=== PATIENT | female | born 1960 | race Caucasian/White ===

== ENCOUNTER 2018-01-23 14:44 | Outpatient (REF) | payer MEDICARE, MEDICAID, SELFPAY ==
[2018-01-23 23:07] LABS: Anion Gap 7.7 mmol/L (3-11); BUN 15 mg/dL (7-18); CO2 29.3 mmol/L (21.0-32.0); CREATININE 1.22 mg/dL (0.55-1.02); Calcium 9.5 mg/dL (8.5-10.1); Chloride 103 mmol/L (98-107); Estimated GFR 45.43 (mL/min/1.73m2); Glucose 96 mg/dL (70-100); Potassium 5.1 mmol/L (3.5-5.1); Sodium 140 mmol/L (136-145)
== END 2018-01-23 15:04 ==
LOC: NCHCN 14:44
PROVIDERS: PCP Nurse Practitioner Family; Visit Provider Physician Assistant Medical
DX: R94.4 Abnormal results of kidney function studies (principal)
CPT/HCPCS: 80048

== ENCOUNTER 2018-04-17 15:12 | Outpatient (REF) | payer MEDICARE, MEDICAID, SELFPAY ==
[2018-04-17 22:11] LABS: Abs Immature Grans 0.01 k/cumm (0.0-0.09); Absolute Basophil Count 0.06 k/cumm (0.0-0.2); Absolute Lymphocyte Count 4.09 k/cumm (1.2-3.4); Absolute Monocyte Count 0.93 k/cumm (0.11-0.7); Absolute Neutrophil Count 5.01 k/cumm (1.2-6.7); Basophils % 0.6; HCT 42.2 % (36.0-46.0); HGB 14.1 g/dL (12.0-15.5); Immature Grans % 0.1; Lymphocytes % 40.1; Mean Corp. HGB Concentration 33.4 g/dL (32.0-36.0); Mean Corpuscular Hemoglobin 32.6 pg (27.0-33.0); Mean Corpuscular Volume 97.5 fL (80-95); Mean Platelet Volume 10.3 fL (8.0-11.0); Monocytes % 9.1; Neutrophils % 49.1; Platelet Count 307 x1000/uL (130-400); RBC 4.33 m/cumm (4.00-5.20)
[2018-04-17 22:38] LABS: Magnesium 2.4 mg/dL (1.8-2.4); TSH 1.31 uIU/mL (0.358-3.74)
== END 2018-04-17 15:32 ==
LOC: NCHCN 15:12
PROVIDERS: PCP Nurse Practitioner Family; Visit Provider Nurse Practitioner Family
DX: F32.9 Major depressive disorder, single episode, unspecified (principal); G89.29 Other chronic pain; F11.20 Opioid dependence, uncomplicated
CPT/HCPCS: 83735; 84443; 85025

== ENCOUNTER 2018-04-24 00:35 | Outpatient (CLI) | payer MEDICARE, MEDICAID, SELFPAY ==
--- NOTE | 2018-04-24 13:35 | DI.CTLCSR_ITS ---
SYMPTOMS/DIAGNOSIS: CIGARETTE SMOKER, F17.210, [facility], Z00.[address] FOR LUNG CANCER SCREENING: A low dose screening protocol was performed. There are no prior comparison exams. There is mild underlying paraseptal and central lobular emphysema. There is a spiculated mass in the right upper lobe anteroinferiorly, measuring 1.4 x 0.9 x 0.9 cm. There is a smaller nodule slightly more superiorly in the right upper lobe, measuring 5 mm in greatest dimension. Other 3 mm nodules are seen scattered in the periphery of the lower lobes. A 5 mm nodule is seen at the superior segment of the left lower lobe. No infiltrates, pleural or pericardial effusions are seen. There is no evidence of adenopathy. There is prominence of the left adrenal gland with Hounsfield units consistent with an adenoma. There is also a smaller low density lesion seen on the right ovary, also consistent with an adenoma. Scoliosis and degenerative changes are seen in the spine. IMPRESSION: A 1.4 cm spiculated mass in the right middle lobe with adjacent smaller nodule. Biopsy is recommended for further evaluation. Lung-RAD Category: 4B- Suspicious Lung- RAD Management of Findings: Chest CT, PET/CT, and/or tissue sampling
== END 2018-04-24 00:55 ==
PROVIDERS: PCP Nurse Practitioner Family; Visit Provider Nurse Practitioner Family
DX: Z12.2 Encounter for screening for malignant neoplasm of respiratory organs (principal); F17.210 Nicotine dependence, cigarettes, uncomplicated; J43.9 Emphysema, unspecified; R91.8 Other nonspecific abnormal finding of lung field
CPT/HCPCS: G0297

== ENCOUNTER 2018-05-02 10:41 | Outpatient (CLI) | payer MEDICARE, MEDICAID, SELFPAY ==
--- NOTE | 2018-05-02 12:45 | DI.MAMMO_ITS ---
SYMPTOM/DIAGNOSIS: SCREENING, Z12.39 MAMMOGRAMS: Mammograms were interpreted according to the usual protocol including computer analysis with CAD system, tomosynthesis and C view imaging. Comparison is made with exams from [id number]. The breasts are composed of extremely dense fibroglandular tissue. Breast density, Category D. No suspicious masses or suspicious microcalcifications are visible. There has been no significant change. IMPRESSION: Category 1D, negative mammogram. Yearly screening mammography is recommended. [facility] [[email or web address]] ASSESSMENT OF FINDINGS: Negative. Category 1. Patient will receive a letter notifying them of these results. BI-RADS category D. The breasts are extremely dense, which lowers the sensitivity of mammography.
== END 2018-05-02 11:01 ==
PROVIDERS: PCP Nurse Practitioner Family; Visit Provider Nurse Practitioner Family
DX: Z12.31 Encounter for screening mammogram for malignant neoplasm of breast (principal)
CPT/HCPCS: 77063; 77067

== ENCOUNTER 2018-08-18 12:55 | Outpatient (CLI) | payer MEDICARE, MEDICAID, SELFPAY ==
[2018-08-18 13:22] LABS: Abs Immature Grans 0.04 k/cumm (0.0-0.09); Absolute Basophil Count 0.07 k/cumm (0.0-0.2); Absolute Eosinophil Count 1.26 k/cumm (0.0-0.7); Absolute Monocyte Count 1.33 k/cumm (0.11-0.7); Absolute Neutrophil Count 6.31 k/cumm (1.2-6.7); Basophils % 0.5; Eosinophils % 9.3; HCT 38.3 % (36.0-46.0); HGB 12.6 g/dL (12.0-15.5); Immature Grans % 0.3; Lymphocytes % 33.5; Mean Corp. HGB Concentration 32.9 g/dL (32.0-36.0); Mean Corpuscular Hemoglobin 31.7 pg (27.0-33.0); Mean Corpuscular Volume 96.2 fL (80-95); Mean Platelet Volume 8.9 fL (8.0-11.0); Monocytes % 9.8; Neutrophils % 46.6; Platelet Count 385 x1000/uL (130-400); RBC 3.98 m/cumm (4.00-5.20); RBC Distribution Width 13.7 % (11.7-14.6); White Blood Cell Count 13.54 k/cumm (4.4-10.8)
[2018-08-18 13:39] LABS: ALT 34 U/L (12-78); AST 24 U/L (15-37); Albumin 3.5 g/dL (3.4-5.0); Alkaline Phosphatase 99 U/L (46-116); Anion Gap 4.9 mmol/L (3-11); BUN 24 mg/dL (7-18); Bilirubin, Total 0.4 mg/dL (0.2-1.0); CO2 31.1 mmol/L (21.0-32.0); CREATININE 1.04 mg/dL (0.55-1.02); Calcium 8.9 mg/dL (8.5-10.1); Chloride 103 mmol/L (98-107); Estimated GFR 54.43 (mL/min/1.73m2); Glucose 99 mg/dL (70-100); Magnesium 2.2 mg/dL (1.8-2.4); Potassium 4.7 mmol/L (3.5-5.1); Sodium 139 mmol/L (136-145); Total Protein 7.1 g/dL (6.4-8.2)
[2018-08-18 14:16] LABS: Absolute Lymphocyte Count 4.54 k/cumm (1.2-3.4)
[2018-08-18 14:17] LABS: Diff Comment RBC Morph Reviewed; Howell-Jolly Bodies Present; Hypochromasia 1+; Poikilocytes 1+
== END 2018-08-18 13:15 ==
PROVIDERS: PCP Nurse Practitioner Family; Visit Provider Nurse Practitioner Family
DX: C34.91 Malignant neoplasm of unspecified part of right bronchus or lung (principal)
CPT/HCPCS: 36415; 80053; 83735; 85025

== ENCOUNTER 2018-08-31 08:27 | Outpatient (CLI) | payer MEDICARE, MEDICAID, SELFPAY ==
[2018-08-31 09:00] LABS: Abs Immature Grans 0.01 k/cumm (0.0-0.09); Absolute Basophil Count 0.04 k/cumm (0.0-0.2); Absolute Eosinophil Count 0.33 k/cumm (0.0-0.7); Absolute Lymphocyte Count 2.91 k/cumm (1.2-3.4); Absolute Neutrophil Count 2.97 k/cumm (1.2-6.7); Basophils % 0.6; Eosinophils % 4.7; HCT 37.1 % (36.0-46.0); HGB 12.4 g/dL (12.0-15.5); Immature Grans % 0.1; Lymphocytes % 41.8; Mean Corp. HGB Concentration 33.4 g/dL (32.0-36.0); Mean Corpuscular Hemoglobin 31.7 pg (27.0-33.0); Mean Corpuscular Volume 94.9 fL (80-95); Mean Platelet Volume 9.4 fL (8.0-11.0); Monocytes % 10.1; Neutrophils % 42.7; Platelet Count 312 x1000/uL (130-400); RBC 3.91 m/cumm (4.00-5.20); RBC Distribution Width 13.1 % (11.7-14.6); White Blood Cell Count 6.96 k/cumm (4.4-10.8)
[2018-08-31 09:03] LABS: ALT 22 U/L (12-78); AST 17 U/L (15-37); Albumin 3.5 g/dL (3.4-5.0); Alkaline Phosphatase 103 U/L (46-116); BUN 18 mg/dL (7-18); Bilirubin, Total 0.3 mg/dL (0.2-1.0); CREATININE 1.04 mg/dL (0.55-1.02); Calcium 8.7 mg/dL (8.5-10.1); Chloride 103 mmol/L (98-107); Estimated GFR 54.43 (mL/min/1.73m2); Glucose 69 mg/dL (70-100); Magnesium 2.1 mg/dL (1.8-2.4); Potassium 4.5 mmol/L (3.5-5.1); Sodium 139 mmol/L (136-145); Total Protein 7.2 g/dL (6.4-8.2)
== END 2018-08-31 08:47 ==
PROVIDERS: PCP Nurse Practitioner Family
DX: C34.91 Malignant neoplasm of unspecified part of right bronchus or lung (principal)
CPT/HCPCS: 36415; 80053; 83735; 85025

== ENCOUNTER 2018-09-11 07:32 | Outpatient (CLI) | payer MEDICARE, MEDICAID, SELFPAY ==
[2018-09-11 07:49] LABS: Abs Immature Grans 0.02 k/cumm (0.0-0.09); Absolute Basophil Count 0.03 k/cumm (0.0-0.2); Absolute Eosinophil Count 0.15 k/cumm (0.0-0.7); Absolute Lymphocyte Count 3.02 k/cumm (1.2-3.4); Absolute Monocyte Count 1.32 k/cumm (0.11-0.7); Absolute Neutrophil Count 1.96 k/cumm (1.2-6.7); Basophils % 0.5; Eosinophils % 2.3; HCT 37.5 % (36.0-46.0); HGB 12.3 g/dL (12.0-15.5); Immature Grans % 0.3; Lymphocytes % 46.5; Mean Corp. HGB Concentration 32.8 g/dL (32.0-36.0); Mean Corpuscular Hemoglobin 31.6 pg (27.0-33.0); Mean Corpuscular Volume 96.4 fL (80-95); Mean Platelet Volume 8.7 fL (8.0-11.0); Monocytes % 20.3; Neutrophils % 30.1; Platelet Count 550 x1000/uL (130-400); RBC 3.89 m/cumm (4.00-5.20)
[2018-09-11 08:08] LABS: ALT 20 U/L (12-78); AST 17 U/L (15-37); Albumin 3.7 g/dL (3.4-5.0); Alkaline Phosphatase 85 U/L (46-116); Anion Gap 5.8 mmol/L (3-11); BUN 22 mg/dL (7-18); Bilirubin, Total 0.3 mg/dL (0.2-1.0); CO2 30.2 mmol/L (21.0-32.0); CREATININE 1.27 mg/dL (0.55-1.02); Calcium 8.8 mg/dL (8.5-10.1); Chloride 102 mmol/L (98-107); Estimated GFR 43.22 (mL/min/1.73m2); Glucose 97 mg/dL (70-100); Magnesium 2.1 mg/dL (1.8-2.4); Potassium 4.3 mmol/L (3.5-5.1); Sodium 138 mmol/L (136-145); Total Protein 7.2 g/dL (6.4-8.2)
== END 2018-09-11 07:52 ==
PROVIDERS: PCP Nurse Practitioner Family
DX: C34.91 Malignant neoplasm of unspecified part of right bronchus or lung (principal)
CPT/HCPCS: 36415; 80053; 83735; 85025

== ENCOUNTER 2018-10-02 07:31 | Outpatient (CLI) | payer MEDICARE, MEDICAID, SELFPAY ==
[2018-10-02 08:12] LABS: ALT 22 U/L (12-78); AST 17 U/L (15-37); Albumin 3.7 g/dL (3.4-5.0); Alkaline Phosphatase 76 U/L (46-116); Anion Gap 5.3 mmol/L (3-11); BUN 18 mg/dL (7-18); Bilirubin, Total 0.4 mg/dL (0.2-1.0); CO2 30.7 mmol/L (21.0-32.0); CREATININE 1.12 mg/dL (0.55-1.02); Calcium 9.1 mg/dL (8.5-10.1); Chloride 102 mmol/L (98-107); Estimated GFR 49.97 (mL/min/1.73m2); Glucose 84 mg/dL (70-100); Potassium 4.3 mmol/L (3.5-5.1); Sodium 138 mmol/L (136-145); Total Protein 7.1 g/dL (6.4-8.2)
[2018-10-02 08:21] LABS: Abs Immature Grans 0.02 k/cumm (0.0-0.09); Absolute Basophil Count 0.12 k/cumm (0.0-0.2); Absolute Eosinophil Count 0.41 k/cumm (0.0-0.7); Absolute Lymphocyte Count 3.62 k/cumm (1.2-3.4); Absolute Monocyte Count 1.27 k/cumm (0.11-0.7); Absolute Neutrophil Count 2.86 k/cumm (1.2-6.7); Basophils % 1.4; Eosinophils % 4.9; HCT 36.7 % (36.0-46.0); HGB 12.1 g/dL (12.0-15.5); Immature Grans % 0.2; Lymphocytes % 43.6; Mean Corpuscular Hemoglobin 31.9 pg (27.0-33.0); Mean Corpuscular Volume 96.8 fL (80-95); Monocytes % 15.3; Neutrophils % 34.6; Platelet Count 367 x1000/uL (130-400); RBC 3.79 m/cumm (4.00-5.20); RBC Distribution Width 14.7 % (11.7-14.6)
== END 2018-10-02 07:51 ==
PROVIDERS: PCP Nurse Practitioner Family
DX: C34.91 Malignant neoplasm of unspecified part of right bronchus or lung (principal)
CPT/HCPCS: 36415; 80053; 83735; 85025

== ENCOUNTER 2018-10-24 07:14 | Outpatient (CLI) | payer MEDICARE, MEDICAID, SELFPAY ==
[2018-10-24 07:34] LABS: Abs Immature Grans 0.06 k/cumm (0.0-0.09); Absolute Basophil Count 0.05 k/cumm (0.0-0.2); Absolute Eosinophil Count 0.14 k/cumm (0.0-0.7); Absolute Lymphocyte Count 3.75 k/cumm (1.2-3.4); Absolute Monocyte Count 1.18 k/cumm (0.11-0.7); Absolute Neutrophil Count 1.84 k/cumm (1.2-6.7); Basophils % 0.7; HCT 36.6 % (36.0-46.0); HGB 11.9 g/dL (12.0-15.5); Immature Grans % 0.9; Lymphocytes % 53.4; Mean Corp. HGB Concentration 32.5 g/dL (32.0-36.0); Mean Corpuscular Hemoglobin 32.2 pg (27.0-33.0); Mean Corpuscular Volume 99.2 fL (80-95); Mean Platelet Volume 8.9 fL (8.0-11.0); Monocytes % 16.8; Neutrophils % 26.2; RBC 3.69 m/cumm (4.00-5.20); RBC Distribution Width 15.7 % (11.7-14.6); White Blood Cell Count 7.02 k/cumm (4.4-10.8)
[2018-10-24 07:48] LABS: ALT 18 U/L (12-78); AST 14 U/L (15-37); Albumin 3.7 g/dL (3.4-5.0); Alkaline Phosphatase 80 U/L (46-116); BUN 14 mg/dL (7-18); Bilirubin, Total 0.2 mg/dL (0.2-1.0); CREATININE 1.22 mg/dL (0.55-1.02); Calcium 8.9 mg/dL (8.5-10.1); Chloride 102 mmol/L (98-107); Estimated GFR 45.27 (mL/min/1.73m2); Glucose 92 mg/dL (70-100); Magnesium 2.2 mg/dL (1.8-2.4); Potassium 3.8 mmol/L (3.5-5.1); Sodium 140 mmol/L (136-145); Total Protein 7.3 g/dL (6.4-8.2)
[2018-10-24 08:29] LABS: Platelet Count 818 x1000/uL (130-400)
== END 2018-10-24 07:34 ==
PROVIDERS: PCP Nurse Practitioner Family; Visit Provider Nurse Practitioner Family
DX: C34.91 Malignant neoplasm of unspecified part of right bronchus or lung (principal)
CPT/HCPCS: 36415; 80053; 83735; 85025

== ENCOUNTER 2018-12-26 15:21 | Outpatient (REF) | payer MEDICARE, MEDICAID, SELFPAY ==
[2018-12-26 19:52] LABS: BUN 18 mg/dL (7-18); CREATININE 1.15 mg/dL (0.55-1.02); Calcium 9.3 mg/dL (8.5-10.1); Chloride 102 mmol/L (98-107); Estimated GFR 48.46 (mL/min/1.73m2); Glucose 79 mg/dL (70-100); Potassium 5.3 mmol/L (3.5-5.1); Sodium 139 mmol/L (136-145)
== END 2018-12-26 15:41 ==
LOC: NCHCN 15:21
PROVIDERS: PCP Nurse Practitioner Family; Visit Provider Nurse Practitioner Family
DX: F45.8 Other somatoform disorders (principal); G89.29 Other chronic pain
CPT/HCPCS: 80048

== ENCOUNTER 2018-12-29 00:41 | Outpatient (CLI) | payer MEDICARE, MEDICAID, SELFPAY ==
--- NOTE | 2018-12-29 13:49 | DI.CT_ITS ---
SYMPTOMS/DIAGNOSIS: GLOBUS SENSATION, F45.8 CT, SOFT TISSUE NECK: CT examination of the cervicothoracic junction was performed using intravenous infusion of 100 cc of Omnipaque 350. The trachea and esophagus are normal in appearance. The vascular structures of the neck and superior mediastinum appear intact. The thyroid appears normal. There is no evidence of a supraclavicular or substernal mass. The lung apices appear normal. The clavicles and visualized portions of the shoulder girdle appear normal bilaterally. CONCLUSION: Normal CT examination of the cervical region.
[2018-12-29] MEDS: Omnipaque 350 MG/ML 100 ML BTL IJ (14:26)
== END 2018-12-29 01:01 ==
PROVIDERS: PCP Nurse Practitioner Family; Visit Provider Nurse Practitioner Family
DX: F45.8 Other somatoform disorders (principal)
CPT/HCPCS: 70491; J3490

== ENCOUNTER 2019-01-25 09:10 | Outpatient (REF) | payer MEDICARE, MEDICAID, SELFPAY ==
[2019-01-25 22:23] LABS: Calculated LDL 108 mg/dL; Cholesterol 171 mg/dL (50-200); HDL Cholesterol 53 mg/dL (40-60); Triglyceride 52 mg/dL (30-150)
== END 2019-01-25 09:30 ==
LOC: NCHCN 09:10
PROVIDERS: PCP Nurse Practitioner Family; Visit Provider Nurse Practitioner Family
DX: F45.8 Other somatoform disorders (principal); G89.29 Other chronic pain; M79.7 Fibromyalgia; R79.89 Other specified abnormal findings of blood chemistry
CPT/HCPCS: 80061

== ENCOUNTER 2019-02-21 11:10 | Outpatient (REF) | payer MEDICARE, MEDICAID, SELFPAY ==
[2019-02-21 20:31] LABS: Abs Immature Grans 0.01 k/cumm (0.0-0.09); Absolute Basophil Count 0.07 k/cumm (0.0-0.2); Absolute Eosinophil Count 0.04 k/cumm (0.0-0.7); Absolute Lymphocyte Count 2.38 k/cumm (1.2-3.4); Absolute Monocyte Count 1.03 k/cumm (0.11-0.7); Basophils % 0.7; Eosinophils % 0.4; HCT 39.5 % (36.0-46.0); HGB 13.1 g/dL (12.0-15.5); Immature Grans % 0.1; Lymphocytes % 23.5; Mean Corp. HGB Concentration 33.2 g/dL (32.0-36.0); Mean Corpuscular Hemoglobin 31.6 pg (27.0-33.0); Mean Corpuscular Volume 95.4 fL (80-95); Mean Platelet Volume 9.6 fL (8.0-11.0); Monocytes % 10.2; Neutrophils % 65.1; Platelet Count 429 x1000/uL (130-400); RBC 4.14 m/cumm (4.00-5.20); RBC Distribution Width 13.2 % (11.7-14.6); White Blood Cell Count 10.13 k/cumm (4.4-10.8)
== END 2019-02-21 11:30 ==
LOC: NCHCN 11:10
PROVIDERS: PCP Nurse Practitioner Family; Visit Provider Nurse Practitioner Family
DX: M79.7 Fibromyalgia (principal); G89.29 Other chronic pain; Z79.899 Other long term (current) drug therapy
CPT/HCPCS: 85025

== ENCOUNTER 2019-06-07 00:50 | Outpatient (CLI) | payer MEDICARE, MEDICAID, SELFPAY ==
--- NOTE | 2019-06-07 10:56 | DI.MAMMO_ITS ---
EXAM: MG MAMMO SCREENING CLINICAL HISTORY: SCREENING, [facility] Z00.00. TECHNIQUE: Bilateral full field digital CC and MLO mammographic images were obtained with 3D tomosyn thesis and utilizing computer aided detection (CAD). COMPARISON: Available for comparison. FINDINGS: Masses/Architectural Distortion: None seen. Microcalcifications: No suspicious pleomorphic-type are seen. Skin Thickening/Nipple Retraction: None. IMPRESSION: 1. No significant interval change with no specific features of malignancy noted. 2. Unless there is more urgent need, screening mammography is recommended, as per [place] guidelines. ACR BI-RAD Category- 1 Negative Breast Density - Category C - Heterogeneously dense The mammogram demonstrates the patient's breast tissue is dense. Dense breast tissue is very common a nd is not abnormal but dense breast tissue can make it harder to find cancer on a mammogram. Also, de nse breast tissue may increase their breast cancer risk. This information about the result of the [facility] mogram report was provided to the patient to raise their awareness. Use this report when you speak wi th the patient about their risks for breast cancer, which includes their family history. At that time , you may recommend for more screening tests (Ultrasound or MRI) as they might be useful based on the ir risk. A negative radiographic report should not delay biopsy if a dominant or clinically suspicious mass is present. Up to ten percent of cancers are not identified on mammography. A negative report may reinforce clinical impression. Adenosis and dense breasts may obscure an underlying neoplasm. False positive reports average 6 to 10%. Patient will receive a letter notifying them of these results.
== END 2019-06-07 01:10 ==
PROVIDERS: PCP Nurse Practitioner Family; Visit Provider Nurse Practitioner Family
DX: Z12.31 Encounter for screening mammogram for malignant neoplasm of breast (principal)
CPT/HCPCS: 77063; 77067

== ENCOUNTER 2019-09-18 13:02 | Outpatient (REF) | payer MEDICARE, MEDICAID, SELFPAY | END 2019-09-18 13:22 | LOC: NCHCN 13:02 | PROVIDERS: PCP Nurse Practitioner Family; Visit Provider Nurse Practitioner Family | DX: N76.4 Abscess of vulva (principal) | CPT/HCPCS: 87070; 87205 ==

== ENCOUNTER 2019-12-26 08:54 | Outpatient (REF) | payer MEDICARE, MEDICAID, SELFPAY ==
[2019-12-26 21:45] LABS: HGB 15.6 g/dL (11.2-15.7); MCH 32.6 pg (27.0-33.0); MCHC 33.2 % (32.0-36.0); MCV 98.1 fL (80-95); MPV 9.8 fL (8.0-11.0); Platelet Count 355 10^3/uL (130-400); RBC 4.79 10^6/uL (3.93-5.22); RDW 13.5 % (11.7-14.6); RDW-SD 49.6 fL; WBC 9.58 10^3/uL (4.4-10.8)
[2019-12-26 22:03] LABS: ALT 17 U/L (14-59); AST 16 U/L (15-37); Albumin 4.1 g/dL (3.4-5.0); Alkaline Phosphatase 77 U/L (46-116); Anion Gap 7.7 mmol/L (3-11); BUN 13 mg/dL (7-18); Bilirubin, Total 0.6 mg/dL (0.2-1.0); CO2 29.3 mmol/L (21.0-32.0); CREATININE 1.18 mg/dL (0.55-1.02); Calcium 9.3 mg/dL (8.5-10.1); Calculated LDL 113 mg/dL (<100); Chloride 103 mmol/L (98-107); Cholesterol 183 mg/dL (<200); Estimated GFR 46.88 (mL/min/1.73m2); Glucose 92 mg/dL (74-106); HDL Cholesterol 56 mg/dL (40-60); Potassium 5.2 mmol/L (3.5-5.1); Sodium 140 mmol/L (136-145); TSH 0.88 uIU/mL (0.36-3.74); Total Protein 7.3 g/dL (6.4-8.2); Triglyceride 71 mg/dL (<150)
== END 2019-12-26 09:14 ==
LOC: NCHCN 08:54
PROVIDERS: PCP Nurse Practitioner Family; Visit Provider Nurse Practitioner Family
DX: C80.1 Malignant (primary) neoplasm, unspecified (principal); Z79.899 Other long term (current) drug therapy; R94.4 Abnormal results of kidney function studies; N95.1 Menopausal and female climacteric states
CPT/HCPCS: 80053; 80061; 85027; 84443

== ENCOUNTER 2020-06-09 02:13 | Outpatient (CLI) | payer MEDICARE, MEDICAID, SELFPAY ==
--- NOTE | 2020-06-09 | DI.MAMMO_ITS ---
EXAM: MG MAMMO SCREENING CLINICAL HISTORY: SCREENING, Z12.39. TECHNIQUE: Bilateral full field digital CC and MLO mammographic images were obtained with 3D tomosyn thesis and utilizing computer aided detection (CAD). COMPARISON: Prior mammograms dating back to 2010, the most recent being 05/2019.. FINDINGS: There are no CAD designations. Fibroglandular tissue is moderately dense. There are no spiculated masses nor malignant appearing microcalcification groups. There is a single n ew benign microcalcification in the right breast noted. There is no significant architectural distor tion nor skin thickening-retraction. IMPRESSION: Benign findings. No radiographic evidence of malignancy. BI-RADS Category 2 - Benign Findings Breast Density - Category C - Heterogeneously dense Breast density Category C or D implies that the patient has dense breast tissue. Dense breast tissue can make it harder to find cancer on a mammogram. Dense breast tissue is also associated with an incr eased risk of breast cancer. This information about the result of the mammogram report was provided to the patient to raise their awareness. Use this report when you speak with the patient about their risks for breast cancer, which includes their family history. At that time, you may recommend additional screening tests (Ultrasoun d or MRI) as these tests may add significant information. A negative radiographic report should not delay biopsy if a dominant or clinically suspicious mass is present. Up to ten percent of cancers are not identified on mammography. A negative report may reinforce clinical impression. Adenosis and dense breasts may obscure an underlying neoplasm. False positive reports average 6 to 10%. Patient will receive a letter notifying them of these results.
== END 2020-06-09 02:33 ==
PROVIDERS: PCP Nurse Practitioner Family; Visit Provider Nurse Practitioner Family
DX: Z12.31 Encounter for screening mammogram for malignant neoplasm of breast (principal); R92.0 Mammographic microcalcification found on diagnostic imaging of breast
CPT/HCPCS: 77063; 77067

== ENCOUNTER 2020-07-03 15:59 | Outpatient (REF) | payer MEDICARE, MEDICAID, SELFPAY ==
[2020-07-03 15:43] LABS: HCT 43.3 % (36.0-46.0); HGB 14.5 g/dL (11.2-15.7); MCH 32.3 pg (27.0-33.0); MCHC 33.5 % (32.0-36.0); MCV 96.4 fL (80-95); MPV 10.1 fL (8.0-11.0); Platelet Count 363 10^3/uL (130-400); RBC 4.49 10^6/uL (3.93-5.22); RDW 13.9 % (11.7-14.6); RDW-SD 49.8 fL; WBC 9.74 10^3/uL (4.4-10.8)
[2020-07-03 16:13] LABS: Anion Gap 5.6 mmol/L (3-11); BUN 12 mg/dL (7-18); CO2 30.4 mmol/L (21.0-32.0); CREATININE 1.1 mg/dL (0.55-1.02); Calcium 9.4 mg/dL (8.5-10.1); Chloride 102 mmol/L (98-107); Estimated GFR 50.67 (mL/min/1.73m2); Glucose 95 mg/dL (74-106); Magnesium 2.5 mg/dL (1.8-2.4); Potassium 4.7 mmol/L (3.5-5.1); Sodium 138 mmol/L (136-145)
== END 2020-07-03 16:00 | disposition home or self-care (01) ==
LOC: NCHCN 15:59
PROVIDERS: PCP Nurse Practitioner Family; Visit Provider Nurse Practitioner Family
DX: R94.4 Abnormal results of kidney function studies (principal); Z79.899 Other long term (current) drug therapy
CPT/HCPCS: 80048; 85027; 83735

== ENCOUNTER 2020-09-22 03:27 | Outpatient (CLI) | payer MEDICARE, MEDICAID, SELFPAY ==
[2020-09-22 09:13] LABS: HCT 41.5 % (36.0-46.0); HGB 13.9 g/dL (11.2-15.7); MCH 32.1 pg (27.0-33.0); MCHC 33.5 % (32.0-36.0); MCV 95.8 fL (80-95); MPV 8.9 fL (8.0-11.0); Nucleated RBC 0 %; Platelet Count 405 10^3/uL (130-400); RBC 4.33 10^6/uL (3.93-5.22); RDW 14.8 % (11.7-14.6); RDW-SD 52.1 fL
[2020-09-22 09:54] LABS: ALT 23 U/L (14-59); AST 20 U/L (15-37); Albumin 3.8 g/dL (3.4-5.0); Alkaline Phosphatase 105 U/L (46-116); Anion Gap 5.4 mmol/L (3-11); BUN 25 mg/dL (7-18); Bilirubin, Total 0.4 mg/dL (0.2-1.0); CO2 32.6 mmol/L (21.0-32.0); CREATININE 1.3 mg/dL (0.55-1.02); Calcium 9.2 mg/dL (8.5-10.1); Chloride 103 mmol/L (98-107); Estimated GFR 41.78 (mL/min/1.73m2); Glucose 91 mg/dL (74-106); LDH 259 U/L (81-234); Potassium 5.2 mmol/L (3.5-5.1); Sodium 141 mmol/L (136-145); Total Protein 7.7 g/dL (6.4-8.2)
[2020-09-22 10:01] LABS: Absolute Lymphocyte Count 2.23 10^3/uL (1.2-3.4); Atypical Lymphocytes % 5; Bands % 1
[2020-09-22 10:02] LABS: Absolute Eosinophil Count 0.53 10^3/uL (0.0-0.7); Absolute Monocyte Count 0.85 10^3/uL (0.1-0.8); Diff Comment Diff Reviewed; RBC Morphology Normal
== END 2020-09-22 03:28 | disposition home or self-care (01) ==
PROVIDERS: PCP Nurse Practitioner Family; Visit Provider Internal Medicine Hospice and Palliative Medicine
DX: C34.91 Malignant neoplasm of unspecified part of right bronchus or lung (principal); R79.89 Other specified abnormal findings of blood chemistry
CPT/HCPCS: 36415; 80053; 83615; 85025

== ENCOUNTER 2020-09-29 03:21 | Outpatient (CLI) | payer MEDICARE, MEDICAID, SELFPAY ==
[2020-09-29 09:24] LABS: Anion Gap 5.2 mmol/L (3-11); BUN 27 mg/dL (7-18); CO2 31.8 mmol/L (21.0-32.0); CREATININE 1.4 mg/dL (0.55-1.02); Calcium 9.4 mg/dL (8.5-10.1); Chloride 105 mmol/L (98-107); Estimated GFR 38.36 (mL/min/1.73m2); Glucose 91 mg/dL (74-106); Potassium 4.9 mmol/L (3.5-5.1); Sodium 142 mmol/L (136-145)
== END 2020-09-29 03:22 | disposition home or self-care (01) ==
LOC: LBO 03:21
PROVIDERS: PCP Nurse Practitioner Family; Visit Provider Internal Medicine Hospice and Palliative Medicine
DX: C34.91 Malignant neoplasm of unspecified part of right bronchus or lung (principal)
CPT/HCPCS: 36415; 80048

== ENCOUNTER 2020-10-03 02:52 | Outpatient (CLI) | payer MEDICARE, MEDICAID, SELFPAY ==
[2020-10-03 10:41] LABS: Anion Gap 4.9 mmol/L (3-11); BUN 21 mg/dL (7-18); CO2 33.1 mmol/L (21.0-32.0); CREATININE 1.2 mg/dL (0.55-1.02); Calcium 9.2 mg/dL (8.5-10.1); Chloride 103 mmol/L (98-107); Estimated GFR 45.83 (mL/min/1.73m2); Glucose 91 mg/dL (74-106); Sodium 141 mmol/L (136-145)
== END 2020-10-03 02:53 | disposition home or self-care (01) ==
PROVIDERS: PCP Nurse Practitioner Family; Visit Provider Nurse Practitioner
DX: R79.89 Other specified abnormal findings of blood chemistry (principal)
CPT/HCPCS: 36415; 80048

== ENCOUNTER 2020-10-09 02:39 | Outpatient (CLI) | payer MEDICARE, MEDICAID, SELFPAY ==
[2020-10-09 11:07] LABS: Anion Gap 4.7 mmol/L (3-11); BUN 18 mg/dL (7-18); CO2 32.3 mmol/L (21.0-32.0); CREATININE 1.2 mg/dL (0.55-1.02); Calcium 9.2 mg/dL (8.5-10.1); Chloride 103 mmol/L (98-107); Estimated GFR 45.83 (mL/min/1.73m2); Glucose 97 mg/dL (74-106); Potassium 5.2 mmol/L (3.5-5.1); Sodium 140 mmol/L (136-145)
== END 2020-10-09 02:40 | disposition home or self-care (01) ==
LOC: LBO 02:39
PROVIDERS: PCP Nurse Practitioner Family; Visit Provider Nurse Practitioner
DX: R79.89 Other specified abnormal findings of blood chemistry (principal)
CPT/HCPCS: 36415; 80048

== ENCOUNTER 2020-11-13 04:08 | Outpatient (CLI) | payer MEDICARE, MEDICAID, SELFPAY ==
[2020-11-13 12:04] LABS: ALT 28 U/L (14-59); AST 27 U/L (15-37); Albumin 3.6 g/dL (3.4-5.0); Alkaline Phosphatase 98 U/L (46-116); Anion Gap 5.3 mmol/L (3-11); BUN 22 mg/dL (7-18); Bilirubin, Total 0.4 mg/dL (0.2-1.0); CO2 30.7 mmol/L (21.0-32.0); CREATININE 1.4 mg/dL (0.55-1.02); Calcium 8.9 mg/dL (8.5-10.1); Chloride 102 mmol/L (98-107); Estimated GFR 38.36 (mL/min/1.73m2); Glucose 101 mg/dL (74-106); Sodium 138 mmol/L (136-145); Total Protein 7.7 g/dL (6.4-8.2)
== END 2020-11-13 04:09 | disposition home or self-care (01) ==
LOC: LBO 04:09
PROVIDERS: PCP Nurse Practitioner Family; Visit Provider Internal Medicine Hospice and Palliative Medicine
DX: C34.91 Malignant neoplasm of unspecified part of right bronchus or lung (principal); Z79.899 Other long term (current) drug therapy
CPT/HCPCS: 36415; 80053

== ENCOUNTER 2020-11-20 03:00 | Outpatient (CLI) | payer MEDICARE, MEDICAID, SELFPAY ==
[2020-11-20 11:11] LABS: Anion Gap 6.5 mmol/L (3-11); BUN 24 mg/dL (7-18); CO2 32.5 mmol/L (21.0-32.0); CREATININE 1.2 mg/dL (0.55-1.02); Chloride 100 mmol/L (98-107); Estimated GFR 45.83 (mL/min/1.73m2); Glucose 110 mg/dL (74-106); Potassium 5.2 mmol/L (3.5-5.1); Sodium 139 mmol/L (136-145)
== END 2020-11-20 03:01 | disposition home or self-care (01) ==
LOC: LBO 03:00
PROVIDERS: PCP Nurse Practitioner Family; Visit Provider Nurse Practitioner
DX: C34.91 Malignant neoplasm of unspecified part of right bronchus or lung (principal)
CPT/HCPCS: 36415; 80048

== ENCOUNTER 2021-02-13 01:18 | Outpatient (CLI) | payer MEDICARE, MEDICAID, SELFPAY ==
[2021-02-13 11:10] LABS: Abs Immature Grans 0.02 10^3/uL (0.0-0.06); Absolute Basophil Count 0.08 10^3/uL (0.0-0.2); Absolute Eosinophil Count 0.03 10^3/uL (0.0-0.7); Absolute Lymphocyte Count 2.15 10^3/uL (1.2-3.4); Absolute Monocyte Count 0.88 10^3/uL (0.1-0.8); Absolute Neutrophil Count 5.83 10^3/uL (1.2-6.7); Basophils % 0.9; Eosinophils % 0.3; HCT 45.2 % (36.0-46.0); Immature Grans % 0.2; Lymphocytes % 23.9; MCH 32.1 pg (27.0-33.0); MCHC 33.2 % (32.0-36.0); MCV 96.8 fL (80-95); MPV 9.2 fL (8.0-11.0); Monocytes % 9.8; Neutrophils % 64.9; Nucleated RBC 0 %; Platelet Count 300 10^3/uL (130-400); RBC 4.67 10^6/uL (3.93-5.22); RDW 14.5 % (11.7-14.6); RDW-SD 51.5 fL; WBC 8.99 10^3/uL (4.4-10.8)
[2021-02-13 12:10] LABS: ALT 29 U/L (14-59); AST 19 U/L (15-37); Albumin 3.8 g/dL (3.4-5.0); Alkaline Phosphatase 94 U/L (46-116); Anion Gap 4.1 mmol/L (3-11); BUN 24 mg/dL (7-18); Bilirubin, Total 0.4 mg/dL (0.2-1.0); CO2 32.9 mmol/L (21.0-32.0); CREATININE 1.1 mg/dL (0.55-1.02); Calcium 9.3 mg/dL (8.5-10.1); Chloride 104 mmol/L (98-107); Glucose 100 mg/dL (74-106); LDH 174 U/L (81-234); Potassium 4.9 mmol/L (3.5-5.1); Sodium 141 mmol/L (136-145); Total Protein 7.7 g/dL (6.4-8.2)
== END 2021-02-13 01:19 | disposition home or self-care (01) ==
PROVIDERS: PCP Nurse Practitioner Family; Visit Provider Internal Medicine Hospice and Palliative Medicine
DX: C34.91 Malignant neoplasm of unspecified part of right bronchus or lung (principal)
CPT/HCPCS: 36415; 80053; 83615; 85025

== ENCOUNTER 2021-05-07 03:13 | Outpatient (CLI) | payer MEDICARE, MEDICAID, SELFPAY ==
[2021-05-07 08:59] LABS: Abs Immature Grans 0.02 10^3/uL (0.0-0.06); Absolute Basophil Count 0.07 10^3/uL (0.0-0.2); Absolute Eosinophil Count 0.07 10^3/uL (0.0-0.7); Absolute Lymphocyte Count 3.67 10^3/uL (1.2-3.4); Absolute Neutrophil Count 5.18 10^3/uL (1.2-6.7); Basophils % 0.7; Eosinophils % 0.7; HCT 45.7 % (36.0-46.0); HGB 15.2 g/dL (11.2-15.7); Immature Grans % 0.2; Lymphocytes % 36.7; MCH 32.3 pg (27.0-33.0); MCHC 33.3 % (32.0-36.0); MCV 97.2 fL (80-95); MPV 8.9 fL (8.0-11.0); Neutrophils % 51.7; Nucleated RBC 0 %; Platelet Count 299 10^3/uL (130-400); RDW 14.2 % (11.7-14.6); WBC 10.01 10^3/uL (4.4-10.8)
[2021-05-07 10:29] LABS: ALT 24 U/L (14-59); AST 22 U/L (15-37); Albumin 4.1 g/dL (3.4-5.0); Alkaline Phosphatase 98 U/L (46-116); Anion Gap 7.3 mmol/L (3-11); BUN 26 mg/dL (7-18); Bilirubin, Total 0.7 mg/dL (0.2-1.0); CO2 31.7 mmol/L (21.0-32.0); CREATININE 1.1 mg/dL (0.55-1.02); Calcium 9.2 mg/dL (8.5-10.1); Chloride 101 mmol/L (98-107); FREE T4 1.03 ng/dL (0.76-1.46); Glucose 93 mg/dL (74-106); LDH 210 U/L (81-234); Potassium 4.7 mmol/L (3.5-5.1); Sodium 140 mmol/L (136-145); TSH 1.23 uIU/mL (0.36-3.74)
== END 2021-05-07 03:14 | disposition home or self-care (01) ==
LOC: LBO 03:13
PROVIDERS: PCP Nurse Practitioner Family; Visit Provider Internal Medicine Hospice and Palliative Medicine
DX: C34.91 Malignant neoplasm of unspecified part of right bronchus or lung (principal); Z79.899 Other long term (current) drug therapy
CPT/HCPCS: 36415; 80053; 83615; 84439; 84443; 85025

== ENCOUNTER 2021-06-29 01:42 | Outpatient (CLI) | payer MEDICARE, MEDICAID, SELFPAY | END 2021-06-29 01:43 | disposition home or self-care (01) | LOC: LBO 01:43 | PROVIDERS: PCP Nurse Practitioner Family; Visit Provider Internal Medicine Hospice and Palliative Medicine ==

== ENCOUNTER 2021-07-07 03:53 | Outpatient (CLI) | payer MEDICARE, MEDICAID, SELFPAY ==
[2021-07-07 08:58] LABS: Abs Immature Grans 0.06 10^3/uL (0.0-0.06); Absolute Basophil Count 0.09 10^3/uL (0.0-0.2); Absolute Eosinophil Count 0.13 10^3/uL (0.0-0.7); Absolute Lymphocyte Count 2.31 10^3/uL (1.2-3.4); Absolute Monocyte Count 0.96 10^3/uL (0.1-0.8); Basophils % 0.8; Eosinophils % 1.1; HCT 43.9 % (36.0-46.0); HGB 14.7 g/dL (11.2-15.7); Immature Grans % 0.5; Lymphocytes % 20.3; MCH 32.7 pg (27.0-33.0); MCHC 33.5 % (32.0-36.0); MCV 97.6 fL (80-95); MPV 9.2 fL (8.0-11.0); Monocytes % 8.4; Neutrophils % 68.9; Nucleated RBC 0 %; Platelet Count 334 10^3/uL (130-400); RDW 14.2 % (11.7-14.6); RDW-SD 50.8 fL; WBC 11.37 10^3/uL (4.4-10.8)
[2021-07-07 09:04] LABS: Absolute Neutrophil Count 7.83 10^3/uL (1.2-6.7)
[2021-07-07 10:43] LABS: ALT 33 U/L (14-59); AST 25 U/L (15-37); Albumin 3.9 g/dL (3.4-5.0); Alkaline Phosphatase 122 U/L (46-116); Anion Gap 5.7 mmol/L (3-11); BUN 19 mg/dL (7-18); Bilirubin, Total 0.4 mg/dL (0.2-1.0); CO2 33.3 mmol/L (21.0-32.0); Chloride 102 mmol/L (98-107); Estimated GFR 56.37 (mL/min/1.73m2); Glucose 108 mg/dL (74-106); LDH 224 U/L (81-234); Potassium 4.9 mmol/L (3.5-5.1); Sodium 141 mmol/L (136-145); TSH 0.72 uIU/mL (0.36-3.74); Total Protein 7.5 g/dL (6.4-8.2)
== END 2021-07-07 03:54 | disposition home or self-care (01) ==
LOC: LBO 03:53
PROVIDERS: PCP Nurse Practitioner Family; Visit Provider Internal Medicine Hospice and Palliative Medicine
DX: C34.91 Malignant neoplasm of unspecified part of right bronchus or lung (principal); R79.89 Other specified abnormal findings of blood chemistry; Z79.899 Other long term (current) drug therapy
CPT/HCPCS: 36415; 80053; 83615; 84439; 84443; 85025

== ENCOUNTER 2021-08-17 04:10 | Outpatient (CLI) | payer MEDICARE, MEDICAID, SELFPAY ==
[2021-08-17 08:59] LABS: Abs Immature Grans 0.03 10^3/uL (0.0-0.06); Absolute Basophil Count 0.11 10^3/uL (0.0-0.2); Absolute Eosinophil Count 0.45 10^3/uL (0.0-0.7); Absolute Lymphocyte Count 2.32 10^3/uL (1.2-3.4); Eosinophils % 4.1; HCT 42.7 % (36.0-46.0); HGB 14.2 g/dL (11.2-15.7); Immature Grans % 0.3; MCH 33.3 pg (27.0-33.0); MCHC 33.3 % (32.0-36.0); MCV 100.2 fL (80-95); MPV 9.7 fL (8.0-11.0); Monocytes % 10.9; Neutrophils % 62.7; Nucleated RBC 0 %; Platelet Count 311 10^3/uL (130-400); RBC 4.26 10^6/uL (3.93-5.22); RDW 14.1 % (11.7-14.6); RDW-SD 52.4 fL; WBC 11.04 10^3/uL (4.4-10.8)
[2021-08-17 09:00] LABS: Absolute Neutrophil Count 6.92 10^3/uL (1.2-6.7)
[2021-08-17 10:34] LABS: ALT 39 U/L (14-59); AST 25 U/L (15-37); Albumin 4.1 g/dL (3.4-5.0); Alkaline Phosphatase 118 U/L (46-116); Anion Gap 6.7 mmol/L (3-11); BUN 20 mg/dL (7-18); Bilirubin, Total 0.5 mg/dL (0.2-1.0); CO2 30.3 mmol/L (21.0-32.0); Calcium 9.2 mg/dL (8.5-10.1); Chloride 103 mmol/L (98-107); Estimated GFR 56.37 (mL/min/1.73m2); Glucose 91 mg/dL (74-106); LDH 247 U/L (81-234); Potassium 4.7 mmol/L (3.5-5.1); Sodium 140 mmol/L (136-145); Total Protein 7.8 g/dL (6.4-8.2)
== END 2021-08-17 04:11 | disposition home or self-care (01) ==
LOC: LBO 04:10
PROVIDERS: PCP Nurse Practitioner Family; Visit Provider Internal Medicine Hospice and Palliative Medicine
DX: C34.91 Malignant neoplasm of unspecified part of right bronchus or lung (principal); Z79.899 Other long term (current) drug therapy
CPT/HCPCS: 36415; 80053; 83615; 85025

== ENCOUNTER 2021-09-18 12:07 | Outpatient (REF) | payer MEDICARE, MEDICAID, SELFPAY ==
--- NOTE | 2021-09-18 08:30 | SKI_PTH ---
PATIENT: Kira Robert [id number] AGE/SX: 61/F ROOM: RE09/18/[address]: MAKAYLA Belle : 1960 BED: DIS: 09/18/2021 SPEC #: [id number] RECD: 09/18/21 15:05 STATUS: THAI REMyke #: [id number] ARLENE: 09/18/21 08:[address]: Phuc Johnson DEPT: Surgical Specimen RECD BY: Nia Corona ENTERED: 09/18/21 15:06 SP TYPE: SKI OTHR DR: Carolyne Werner Tissues: 1 - SKIN BIOPSY(SHAVE/PUNCH) Procedures: SKIN LEVEL 4 Comments: [id number]
== END 2021-09-18 12:08 | disposition home or self-care (01) ==
LOC: LBN 12:07
PROVIDERS: PCP Nurse Practitioner Family; Visit Provider Physician Assistant
DX: C44.319 Basal cell carcinoma of skin of other parts of face (principal)
CPT/HCPCS: 88305

== ENCOUNTER 2021-09-28 03:15 | Outpatient (CLI) | payer MEDICARE, MEDICAID, SELFPAY | END 2021-09-28 03:16 | disposition home or self-care (01) | LOC: LBO 03:16 | PROVIDERS: PCP Nurse Practitioner Family; Visit Provider Internal Medicine Hospice and Palliative Medicine ==

== ENCOUNTER 2021-10-26 09:46 | Outpatient (REF) | payer MEDICARE, MEDICAID, SELFPAY ==
[2021-10-26 15:14] LABS: Abs Immature Grans 0.06 10^3/uL (0.0-0.06); Absolute Basophil Count 0.07 10^3/uL (0.0-0.2); Absolute Lymphocyte Count 3.09 10^3/uL (1.2-3.4); Absolute Neutrophil Count 7.93 10^3/uL (1.2-6.7); Basophils % 0.6; Eosinophils % 1.6; HCT 43.5 % (36.0-46.0); HGB 15.1 g/dL (11.2-15.7); Immature Grans % 0.5; Lymphocytes % 24.9; MCH 33.8 pg (27.0-33.0); MCHC 34.7 % (32.0-36.0); MCV 97 fL (80-95); MPV 10.6 fL (8.0-11.0); Monocytes % 8.5; Neutrophils % 63.9; Platelet Count 343 10^3/uL (130-400); RBC 4.47 10^6/uL (3.93-5.22); RDW 13.3 % (11.7-14.6); WBC 12.41 10^3/uL (4.4-10.8)
[2021-10-26 15:17] LABS: Absolute Monocyte Count 1.05 10^3/uL (0.1-0.8)
[2021-10-26 15:20] LABS: ESR 20 mm/hr (0-30)
[2021-10-26 16:29] LABS: ALT 36 U/L (14-59); AST 30 U/L (15-37); Albumin 4.2 g/dL (3.4-5.0); Alkaline Phosphatase 116 U/L (46-116); Bilirubin, Direct 0.1 mg/dL (0.0-0.2); Bilirubin, Total 0.3 mg/dL (0.2-1.0); C-Reactive Protein 0.62 mg/dL (0.0-0.3); TSH (W/Ref FT4) 1.05 uIU/mL (0.36-3.74); Total Protein 8.4 g/dL (6.4-8.2)
[2021-10-27 10:37] LABS: Lyme Ab w Rflx to Lyme Confirm Negative (Negative)
[2021-10-29 00:18] LABS: Anaplasma phagocytophilum Negative (Negative); B. miyamotoi PCR Negative (Negative); Babesia divergens/MO-1 Negative (Negative); Babesia duncani Negative (Negative); Babesia microti Negative (Negative); Ehrlichia chaffeensis Negative (Negative); Ehrlichia ewingii/canis Negative (Negative); Ehrlichia muris eauclairensis Negative (Negative)
== END 2021-10-26 09:47 | disposition home or self-care (01) ==
LOC: NCHCN 09:46
PROVIDERS: PCP Nurse Practitioner Family; Visit Provider Nurse Practitioner Family
DX: R61 Generalized hyperhidrosis (principal); N95.1 Menopausal and female climacteric states; G89.29 Other chronic pain; Z79.899 Other long term (current) drug therapy; W57.XXXA Bitten or stung by nonvenomous insect and other nonvenomous arthropods, initial encounter; T14.8XXA Other injury of unspecified body region, initial encounter; M25.50 Pain in unspecified joint
CPT/HCPCS: 80076; 85652; 87798; 84443; 85025; 86140; 86618

== ENCOUNTER 2021-11-25 15:44 | Outpatient (REF) | payer MEDICARE, MEDICAID, SELFPAY ==
[2021-11-25 14:48] LABS: Abs Immature Grans 0.07 10^3/uL (0.0-0.06); Absolute Basophil Count 0.13 10^3/uL (0.0-0.2); Absolute Lymphocyte Count 3.08 10^3/uL (1.2-3.4); Absolute Monocyte Count 1.24 10^3/uL (0.1-0.8); Absolute Neutrophil Count 6.13 10^3/uL (1.2-6.7); Basophils % 1.2; Eosinophils % 3.6; HGB 14.3 g/dL (11.2-15.7); Immature Grans % 0.6; Lymphocytes % 27.9; MCH 34.2 pg (27.0-33.0); MCV 101 fL (80-95); MPV 10.3 fL (8.0-11.0); Monocytes % 11.2; Neutrophils % 55.5; Platelet Count 329 10^3/uL (130-400); RBC 4.18 10^6/uL (3.93-5.22); RDW 14.3 % (11.7-14.6); RDW-SD 53.1 fL; WBC 11.05 10^3/uL (4.4-10.8)
== END 2021-11-25 15:45 | disposition home or self-care (01) ==
LOC: NCHCN 15:44
PROVIDERS: PCP Nurse Practitioner Family; Visit Provider Nurse Practitioner Family
DX: R61 Generalized hyperhidrosis (principal)
CPT/HCPCS: 85025

== ENCOUNTER 2021-12-07 10:19 | Outpatient (REF) | payer MEDICARE, MEDICAID, SELFPAY ==
[2021-12-07 16:55] LABS: Vitamin B12 745 pg/mL (193-986)
[2021-12-07 16:56] LABS: Folate > 20.0 ng/mL (8.6-20.0)
[2021-12-08 11:08] LABS: Lyme Ab w Rflx to Lyme Confirm Negative (Negative)
[2021-12-13 14:56] LABS: Anaplasma phagocytophilum Negative (Negative); B. miyamotoi PCR Negative (Negative); Babesia divergens/MO-1 Negative (Negative); Babesia duncani Negative (Negative); Babesia microti Negative (Negative); Ehrlichia chaffeensis Negative (Negative); Ehrlichia ewingii/canis Negative (Negative); Ehrlichia muris eauclairensis Negative (Negative)
== END 2021-12-07 10:20 | disposition home or self-care (01) ==
LOC: NCHCN 10:19
PROVIDERS: PCP Nurse Practitioner Family; Visit Provider Nurse Practitioner Family
DX: R51.9 Headache, unspecified (principal); N95.1 Menopausal and female climacteric states; R61 Generalized hyperhidrosis
CPT/HCPCS: 87798; 82607; 82746; 86618

== ENCOUNTER 2021-12-10 17:13 | Outpatient (REF) | payer MEDICARE, MEDICAID, SELFPAY ==
[2021-12-10 16:03] LABS: Anion Gap 5.5 mmol/L (3-11); BUN 31 mg/dL (7-18); CO2 29.5 mmol/L (21.0-32.0); CREATININE 1.1 mg/dL (0.55-1.02); Calcium 9.2 mg/dL (8.5-10.1); Chloride 103 mmol/L (98-107); Glucose 76 mg/dL (74-106); NT-proBNP 261 pg/mL (<300); Potassium 4.7 mmol/L (3.5-5.1); Sodium 138 mmol/L (136-145)
[2021-12-11 11:42] LABS: Albumin 3.8 g/dL (3.4-5.0)
== END 2021-12-10 17:14 | disposition home or self-care (01) ==
LOC: NCHCN 17:13
PROVIDERS: PCP Nurse Practitioner Family; Visit Provider Nurse Practitioner Family
DX: M79.89 Other specified soft tissue disorders (principal); Z00.00 Encounter for general adult medical examination without abnormal findings
CPT/HCPCS: 80048; 82040; 83880

== ENCOUNTER 2021-12-29 18:35 | Outpatient (REF) | payer MEDICARE, MEDICAID, SELFPAY ==
[2021-12-29 16:25] LABS: Abs Immature Grans 0.05 10^3/uL (0.0-0.06); Absolute Basophil Count 0.09 10^3/uL (0.0-0.2); Absolute Lymphocyte Count 2.92 10^3/uL (1.2-3.4); Absolute Neutrophil Count 6.49 10^3/uL (1.2-6.7); Basophils % 0.8; HCT 43.3 % (36.0-46.0); HGB 14.4 g/dL (11.2-15.7); Immature Grans % 0.5; Lymphocytes % 26.9; MCH 33.4 pg (27.0-33.0); MCHC 33.3 % (32.0-36.0); MCV 101 fL (80-95); Monocytes % 8.9; Neutrophils % 59.9; Platelet Count 383 10^3/uL (130-400); RBC 4.31 10^6/uL (3.93-5.22); RDW 13.9 % (11.7-14.6); RDW-SD 51.6 fL; WBC 10.84 10^3/uL (4.4-10.8)
[2021-12-29 16:28] LABS: Absolute Eosinophil Count 0.33 10^3/uL (0.0-0.7); Absolute Monocyte Count 0.96 10^3/uL (0.1-0.8); C-Reactive Protein < 0.05 mg/dL (0.0-0.3)
[2021-12-29 16:35] LABS: ESR 35 mm/hr (0-30)
[2021-12-30 13:11] LABS: Lamotrigine 4.2 mcg/mL (2.5 - 15.0)
== END 2021-12-29 18:36 | disposition home or self-care (01) ==
LOC: NCHCN 18:35
PROVIDERS: PCP Nurse Practitioner Family; Visit Provider Nurse Practitioner Family
DX: M79.89 Other specified soft tissue disorders (principal); R11.0 Nausea; Z51.81 Encounter for therapeutic drug level monitoring
CPT/HCPCS: 80175; 85652; 85025; 86140

== ENCOUNTER → 2022-01-20 07:37 | Outpatient (CLI) | payer MEDICARE, MEDICAID, SELFPAY ==
--- NOTE | 2022-01-20 | DI.MRI_ITS ---
Exam(s) MR BRAIN WO/W EXAM: MR BRAIN WO/W CLINICAL HISTORY: STAGE 4 LUNG CA RT, C34.91, DAILY COATS, ASSESS FOR BRAIN METS TECHNIQUE: Multiplanar multisequence MRI of the brain was performed. CONTRAST MATERIAL: IV Contrast: 10 mL of Dotarem contrast administered. COMPARISON: CT HEAD WITH/WITHOUT CONTRAST from 12/20/2011 FINDINGS: VENTRICLES AND EXTRA AXIAL SPACES: Normal in size and morphology for the patient's age. HEMORRHAGE: None. CEREBRAL PARENCHYMA: No focus of restricted diffusion to suggest acute infarct. No space-occupying le lay identified. MIDLINE SHIFT: None. BRAINSTEM/CEREBELLUM: Normal. CALVARIUM: Normal. ENHANCEMENT: No suspicious enhancement identified. VISUALIZED PARANASAL SINUSES/MASTOIDS: Clear. TAKOTNA OF OLIVARES: Normal flow void. PITUITARY GLAND: Unremarkable. OTHER FINDINGS: IMPRESSION: 1. Unremarkable MRI of the brain. 2. No evidence of intracranial metastatic disease. DATA REPOSITORY:
[2022-01-20] MEDS: Normal Saline Flush 10 ML SYR IVP (09:57)
== END ==
PROVIDERS: PCP Nurse Practitioner Family; Visit Provider Nurse Practitioner
DX: C34.91 Malignant neoplasm of unspecified part of right bronchus or lung (principal)
CPT/HCPCS: 70553

== ENCOUNTER → 2022-01-25 01:47 | Outpatient (CLI) | payer MEDICARE, MEDICAID, SELFPAY ==
--- NOTE | 2022-01-25 | DI.CT_ITS ---
Exam(s) CT ABDOMEN PELVIS W EXAM: CT ABDOMEN PELVIS W CLINICAL HISTORY: STAGE 4 LUNG CA RT, C34.91, NEW WORSENING GI SYMPTOMS. TECHNIQUE: Imaging Protocol: Axial computed tomography images with coronal and sagittal reformatted images were created and reviewed CONTRAST MATERIAL: Intravenous: Omnipaque 100cc Oral: Yes. Oral contrast was administered for bowel opacification. COMPARISON: No exams were available for comparison FINDINGS: VISUALIZED LUNG BASES: No pleural effusions. Nonspecific subpleural markings are noted in lateral ba emelia segment of the left lower lobe.. ABDOMEN: There is no ascites. LIVER: There are no focal hepatic lesions evident. Mild dilatation of intrahepatic ducts noted in adal th right and left hepatic lobes. GALLBLADDER/BILIARY: And CBD are distended with the CBD measuring 10 millimeters. No obvious gallsto calin. No calculi in the lower CBD. No pancreatic head mass. PANCREAS: No obvious pancreatic mass. Pancreatic duct diameter is upper normal. SPLEEN: No spleen evident. Splenic and portal veins are patent. ADRENALS: Right adrenal gland unremarkable. Thickening of the left adrenal gland is noted, particula rly more so in the medial limb which exhibits thickness 1.2 cm. KIDNEYS:Tiny cyst in the superior aspect of the right kidney measuring 6 millimeters. Also similar c yst in the superior aspect left kidney. No solid renal masses. No calculi nor hydronephrosis.. ABDOMINAL AORTA: No evidence of abdominal aortic aneurysm. Maximum diameter of the abdominal aorta i s 2.5 cm. Abdominal aorta tapers distally. No aneurysm of the visualized common iliac arteries note d. Celiac and superior mesenteric arteries are patent. Inferior mesenteric artery is also opacified . No significant stenosis at the aortic bifurcation. LYMPH NODES:There is no retroperitoneal nor paraaortic adenopathy. ABDOMINAL WALL: No evidence of significant anterior abdominal wall nor inguinal hernia. GI: There is no evidence of bowel obstruction, free air, nor abscess. Administered oral contrast has reached the rectum by the time of scanning. Abundant fecal material i s noted in the colon but no true obstruction. PELVIS: GI: No evidence of appendicitis.No evidence of sigmoid diverticulitis. LYMPH NODES: There is no intrapelvic nor inguinal adenopathy. REPRODUCTIVE: Uterus is surgically absent. There are no abnormal adnexal masses. No free fluid in t he pelvis. URINARY BLADDER: Mild uniform thickening of the urinary bladder wall. No bladder distension. No rad iopaque calculi OSSEOUS: No significant osseous lesions. Scoliosis convex left. No fractures evident. IMPRESSION: 1. No ascites nor lymphadenopathy in the abdomen pelvis. Spleen is not seen and possibly surgically absent versus not developed. No surgical clips seen left upper quadrant. 2. Dilated biliary tree, both intra and extrahepatic. Gallbladder is also distended. No gallstones in the biliary tree. No obvious pancreatic head mass. Correlation with appropriate blood work recom mended. Cannot exclude lesion at the ampullary level. 3. Small benign cysts noted in both kidneys. 4. RADIATION DOSE DELIVERED: 943.22mGy.cm Total DLP DATA REPOSITORY: All CT scans at this facility are submitted to the National Radiology Data Registry (NRDR) Dose Index Registry (DIR) with the [employer] (ACR). RADIATION OPTIMIZATION: All CT scans at this facility use at least one of these dose optimization te chniques: automated exposure control; mA and/or kV adjustment per patient size (includes targeted exa ms where dose is matched to clinical indication); or iterative reconstruction.
[2022-01-25] MEDS: Barium Sulfate 2% W/V-Berry Smoothie 450 ML BTL PO (12:59)
[2022-01-25] MEDS: Omnipaque 350 MG/ML 100 ML BTL IJ (15:52)
[2022-01-25] MEDS: Normal Saline Flush 10 ML SYR IVP (15:54)
== END ==
PROVIDERS: PCP Nurse Practitioner Family; Visit Provider Nurse Practitioner
DX: C34.91 Malignant neoplasm of unspecified part of right bronchus or lung (principal); N28.1 Cyst of kidney, acquired; K82.8 Other specified diseases of gallbladder; K83.8 Other specified diseases of biliary tract
CPT/HCPCS: 74177; J3490

== ENCOUNTER → 2022-01-28 12:25 | Outpatient (BNVA) | payer MEDICARE, MEDICAID, SELFPAY | PROVIDERS: PCP Nurse Practitioner Family; Referring Provider Nurse Practitioner Family; Visit Provider Nurse Practitioner Adult Health | DX: G44.52 New daily persistent headache (NDPH) (principal) | CPT/HCPCS: 64405; 99204; 99214 ==

== ENCOUNTER 2022-02-10 10:25 | Outpatient (REF) | payer MEDICARE, MEDICAID, SELFPAY ==
[2022-02-10 19:08] LABS: Bacteria Negative HPF (Negative); C & S Indicated? C&S Done As Ordered; Casts Negative LPF (Negative); Crystals Mod Calcium Oxalate HPF (Negative); Epithelial Cells Rare HPF (Negative); Mucus Negative (Negative); Other Cells Negative (Negative); RBC 0-2 HPF (0-2); WBC 0-2 HPF (0-5)
== END 2022-02-10 10:26 | disposition home or self-care (01) ==
LOC: NCHCN 10:25
PROVIDERS: PCP Nurse Practitioner Family; Visit Provider Nurse Practitioner Family
DX: R30.0 Dysuria (principal)
CPT/HCPCS: 81015; 87086

== ENCOUNTER → 2022-02-11 14:31 | Outpatient (BNVA) | payer MEDICARE, MEDICAID, SELFPAY | PROVIDERS: PCP Nurse Practitioner Family; Referring Provider Nurse Practitioner Family; Visit Provider Nurse Practitioner Adult Health | DX: R51.9 Headache, unspecified (principal) | CPT/HCPCS: 64405 ==

== ENCOUNTER 2022-02-15 04:18 | Outpatient (CLI) | payer MEDICARE, MEDICAID, SELFPAY ==
[2022-02-15 07:48] LABS: HCT 43.9 % (36.0-46.0); HGB 14.7 g/dL (11.2-15.7); MCH 33.5 pg (27.0-33.0); MCHC 33.5 % (32.0-36.0); MCV 100 fL (80-95); MPV 9.3 fL (8.0-11.0); Platelet Count 499 10^3/uL (130-400); RBC 4.39 10^6/uL (3.93-5.22); RDW 12.4 % (11.7-14.6); RDW-SD 46.5 fL; WBC 12.73 10^3/uL (4.4-10.8)
[2022-02-15 08:07] LABS: Absolute Basophil Count 0.13 10^3/uL (0.0-0.2); Absolute Eosinophil Count 0.51 10^3/uL (0.0-0.7); Absolute Monocyte Count 1.15 10^3/uL (0.1-0.8); Absolute Neutrophil Count 6.75 10^3/uL (1.2-6.7); Atypical Lymphocytes % 14; Bands % 1
[2022-02-15 08:08] LABS: Diff Comment Manual Differential; RBC Morphology Normal
[2022-02-15 08:42] LABS: ALT 22 U/L (14-59); AST 20 U/L (15-37); Albumin 3.6 g/dL (3.4-5.0); Alkaline Phosphatase 135 U/L (46-116); Anion Gap 6.8 mmol/L (3-11); BUN 23 mg/dL (7-18); Bilirubin, Total 0.3 mg/dL (0.2-1.0); CO2 33.2 mmol/L (21.0-32.0); CREATININE 1.2 mg/dL (0.55-1.02); Calcium 9.8 mg/dL (8.5-10.1); Chloride 100 mmol/L (98-107); Estimated GFR 51.18 (mL/min/1.73m2); Glucose 112 mg/dL (74-106); LDH 199 U/L (81-234); Potassium 4.1 mmol/L (3.5-5.1); Sodium 140 mmol/L (136-145); Total Protein 8.6 g/dL (6.4-8.2)
== END 2022-02-15 04:19 | disposition home or self-care (01) ==
PROVIDERS: PCP Nurse Practitioner Family; Visit Provider Nurse Practitioner
DX: C34.91 Malignant neoplasm of unspecified part of right bronchus or lung (principal); C78.01 Secondary malignant neoplasm of right lung; C78.02 Secondary malignant neoplasm of left lung
CPT/HCPCS: 36415; 80053; 83615; 85025

== ENCOUNTER → 2022-02-25 13:03 | Outpatient (BNVA) | payer MEDICARE, MEDICAID, SELFPAY | PROVIDERS: PCP Nurse Practitioner Family; Referring Provider Nurse Practitioner Family; Visit Provider Nurse Practitioner Adult Health | DX: G89.29 Other chronic pain (principal); R51.9 Headache, unspecified | CPT/HCPCS: 64405 ==

== ENCOUNTER → 2022-03-11 15:14 | Outpatient (BNVA) | payer MEDICARE, MEDICAID, SELFPAY | PROVIDERS: PCP Nurse Practitioner Family; Referring Provider Nurse Practitioner Family; Visit Provider Nurse Practitioner Adult Health | DX: R51.9 Headache, unspecified (principal) | CPT/HCPCS: 64405 ==

== ENCOUNTER → 2022-03-25 10:24 | Outpatient (BNVA) | payer MEDICARE, MEDICAID, SELFPAY | PROVIDERS: PCP Nurse Practitioner Family; Referring Provider Nurse Practitioner Family; Visit Provider Urology | DX: R35.0 Frequency of micturition (principal); Z87.898 Personal history of other specified conditions | CPT/HCPCS: 51798; 81003; 99214 ==

== ENCOUNTER → 2022-03-29 09:09 | Outpatient (BNVA) | payer MEDICARE, MEDICAID, SELFPAY | PROVIDERS: PCP Nurse Practitioner Family; Referring Provider Nurse Practitioner Family; Visit Provider Nurse Practitioner Adult Health | DX: R51.9 Headache, unspecified (principal) | CPT/HCPCS: 64405 ==

== ENCOUNTER → 2022-04-14 08:51 | Outpatient (BNVA) | payer MEDICARE, MEDICAID, SELFPAY | PROVIDERS: PCP Nurse Practitioner Family; Referring Provider Nurse Practitioner Family; Visit Provider Psychiatry & Neurology Neurology | DX: R51.9 Headache, unspecified (principal) | CPT/HCPCS: 64405 ==

== ENCOUNTER 2022-04-19 15:07 | Outpatient (REF) | payer MEDICARE, MEDICAID, SELFPAY ==
[2022-04-19 16:10] LABS: HCT 42.7 % (36.0-46.0); HGB 14.3 g/dL (11.2-15.7); MCH 32.7 pg (27.0-33.0); MCHC 33.5 % (32.0-36.0); MCV 98 fL (80-95); MPV 11.5 fL (8.0-11.0); Platelet Count 309 10^3/uL (130-400); RBC 4.37 10^6/uL (3.93-5.22); RDW 13.8 % (11.7-14.6); WBC 10.29 10^3/uL (4.4-10.8)
[2022-04-20 16:04] LABS: Lamotrigine 6.2 mcg/mL (3.0-15.0)
== END 2022-04-19 15:08 | disposition home or self-care (01) ==
LOC: NCHCN 15:07
PROVIDERS: PCP Nurse Practitioner Family; Visit Provider Nurse Practitioner Family
DX: Z51.81 Encounter for therapeutic drug level monitoring (principal); F32.9 Major depressive disorder, single episode, unspecified
CPT/HCPCS: 80175; 85027

== ENCOUNTER → 2022-04-28 07:58 | Outpatient (BNVA) | payer MEDICARE, MEDICAID, SELFPAY | PROVIDERS: PCP Nurse Practitioner Family; Referring Provider Nurse Practitioner Family; Visit Provider Nurse Practitioner Adult Health | DX: R51.9 Headache, unspecified (principal) | CPT/HCPCS: 64405; 99213 ==

== ENCOUNTER → 2022-04-28 15:00 | Outpatient (BNVA) | payer MEDICARE, MEDICAID, SELFPAY | PROVIDERS: PCP Nurse Practitioner Family; Referring Provider Nurse Practitioner Family; Visit Provider Nurse Practitioner Gerontology | DX: R35.0 Frequency of micturition (principal); R10.2 Pelvic and perineal pain | CPT/HCPCS: 64405; 99213 ==

== ENCOUNTER → 2022-05-12 07:46 | Outpatient (BNVA) | payer MEDICARE, MEDICAID, SELFPAY | PROVIDERS: PCP Nurse Practitioner Family; Referring Provider Nurse Practitioner Family; Visit Provider Nurse Practitioner Adult Health | DX: G44.52 New daily persistent headache (NDPH) (principal) | CPT/HCPCS: 99212; 96372 ==

== ENCOUNTER 2022-05-24 11:21 | Outpatient (CLI) | payer MEDICARE, MEDICAID, SELFPAY ==
--- NOTE | 2022-05-24 09:46 | DI.RAD_ITS ---
Exam(s) XR WRIST LT COMPLETE EXAM: XR WRIST LT COMPLETE CLINICAL HISTORY: LT WRIST PAIN, M25.532, S/P FALL, ? FX. TECHNIQUE: 2D digital imaging was performed. Three views. COMPARISON: No exams were available for comparison FINDINGS: BONES: No acute fracture is present. No bony destructive lesion is seen. JOINTS: The carpal bones are normally aligned. SOFT TISSUE: Normal. IMPRESSION: Unremarkable radiographs of the left wrist. DATA REPOSITORY: RADIATION DOSE DELIVERED:
== END 2022-05-24 11:41 ==
LOC: DI 11:22
PROVIDERS: PCP Nurse Practitioner Family; Visit Provider Nurse Practitioner Family
DX: M25.532 Pain in left wrist (principal)
CPT/HCPCS: 73110

== ENCOUNTER → 2022-06-14 08:17 | Outpatient (BNVA) | payer MEDICARE, MEDICAID, SELFPAY | PROVIDERS: PCP Nurse Practitioner Family; Referring Provider Nurse Practitioner Family; Visit Provider Nurse Practitioner Adult Health | DX: R51.9 Headache, unspecified (principal) | CPT/HCPCS: 99211 ==

== ENCOUNTER → 2022-06-16 08:17 | Outpatient (BNVA) | payer MEDICARE, MEDICAID, SELFPAY | PROVIDERS: PCP Nurse Practitioner Family; Referring Provider Nurse Practitioner Family; Visit Provider Nurse Practitioner Adult Health | DX: M79.7 Fibromyalgia (principal); R51.9 Headache, unspecified | CPT/HCPCS: 64405; 99213; 99214 ==

== ENCOUNTER 2022-08-16 12:19 | Outpatient (REF) | payer MEDICARE, MEDICAID, SELFPAY ==
--- OUTSIDE RECORDS SUMMARY | 2022-08-16 12:24 | XMS_ITS | Continuity of Care Document ---
Author Name Unknown Organization [facility] Address [address] [place] [address] Care Team Providers Care Relations Director Name Role Phone FLORINDA DIANE Primary Care Physician [phone] Encounter [facility] FIN NBR [id number] Date(s): 07/12/22 - 07/12/[address] [address] Encounter Diagnosis Malignant neoplasm of unspecified part of right bronchus or lung(Final) - Headache, unspecified(Final) - Discharge Disposition: Home or Self Care Attending Physician: JANEY MARTELL Admitting Physician: JANEY MARTELL Allergies, Adverse Reactions, Alerts Substance Reaction Severity Status mirtazapine Moderate Active benzodiazepines Unknown Active Neurobion Moderate Active Nicoderm C-Q Moderate Active Chantix Moderate Active clonazePAM Moderate Active Duragesic-25 Moderate Active Assessment and Plan Future Scheduled Tests Radiology* MRI Brain w/ + w/o Contrast 07/12/22 Medications Ativan 0.5 mg oral tablet 0.5 mg = 1 tab, Oral, BID, 0 Refill(s) Start Date: 05/04/22 Status: Ordered Emgality Prefilled Pen 120 mg/mL subcutaneous solution 0 Refill(s) Start Date: 05/04/22 Status: Ordered galcanezumab-gnlm 120 mg/mL subcutaneous solution 120 mg =, Subcutaneous, every month, # 1 mL, 0 Refill(s) Start Date: 05/04/22 Status: Ordered lactulose 10 g oral powder for reconstitution 1 packets, Oral, BID, # 10 g, 0 Refill(s) Start Date: 05/04/22 Status: Ordered lamoTRIgine 150 mg oral tablet 150 mg = 1 tab, Oral, BID, # 60 tab, 0 Refill(s) Start Date: 05/01/22 Status: Ordered magnesium gluconate 250 mg oral tablet 250 mg 1 tab, Oral, Daily, # 30 tab, 0 Refill(s) Start Date: 05/04/22 Status: Ordered Myrbetriq 50 mg oral tablet, extended release 50 mg = 1 tab, Oral, Daily, do not crush or chew, # 30 tab, 0 Refill(s) Start Date: 05/04/22 Status: Ordered naproxen sodium 550 mg oral tablet 550 mg = 1 tab, Oral, BID, PRN as needed for arthritis, # 20 tab, 0 Refill(s) Start Date: 05/01/22 Status: Ordered Narcan 4 mg/0.1 mL nasal spray 1 sprays, Nasal, Once, may repeat every 2 to 3 minutes until patient responds, # 2 EA, 0 Refill(s) Start Date: 05/01/22 Status: Ordered omeprazole 40 mg oral delayed release capsule 40 mg = 1 cap, Oral, Daily, # 30 cap, 0 Refill(s) Start Date: 05/01/22 Status: Ordered ondansetron 4 mg oral tablet 4 mg = 1 tab, Oral, every 8 hr, 0 Refill(s) Start Date: 05/01/22 Status: Ordered Tagrisso 80 mg oral tablet 80 mg = 1 tab, Oral, Daily, # 30 tab, 0 Refill(s) Start Date: 05/04/22 Status: Ordered Problem List Condition Confirmation Course Effective Dates Status H ealth Status Informant AP (abdominal pain) Confirmed Active Vaginal atrophy Confirmed Active Vitamin B 12 deficiency Confirmed Active High risk medication use Confirmed Active Edema Confirmed Active Fibromyalgia Confirmed Active Frequent headaches Confirmed Active Urinary frequency Confirmed Active Insomnia Confirmed Active Chronic joint pain Confirmed Active Anxiety and depression Confirmed Active Nausea Confirmed Active Non-small cell lung cancer Confirmed Active PTSD (post-traumatic stress disorder) Confirmed Active Metastatic adenocarcinoma Confirmed Active Smoker Confirmed Active Hard palate ulcer Confirmed Active Procedures Procedure Date Related Diagnosis Body Site Status Appendectomy Completed Elbow class Completed Oophorectomy Completed Splenectomy Completed Tonsillectomy Completed Vaginal hysterocolpectomy Completed Results Radiology Reports * Exam Date Time Procedure Performing Provider Status 07/12/22 9:43 AM MRI Brain w/ + w/o Contrast DomainUser , Generated; Auth (Verified) Notes: (MRI Brain w/ + w/o Contrast) Reason For Exam: HEADACHE , LUNG CA STAGE 4 MRI Brain w/ + w/o Contrast EXAM DESCRIPTION: MRI Brain w/ + w/o Contrast 07/12/2022 INDICATION: HEADACHE , LUNG CA STAGE 4 TECHNIQUE: Technique: Multiplanar MRI examination of the head including FLAIR and diffusion series. Postcontrast T1-weighted images were obtained in 3 planes. 10 cc of MultiHance contrast was utilized COMPARISON: None available FINDINGS: No intracranial mass, mass effect or abnormal enhancement. Diffusion weighted images demonstrate no focal area of acute or recent infarct. No hydrocephalus, extra-axial fluid collection or blood breakdown products. A few tiny nonspecific foci of periventricular and subcortical white matter T2 signal prolongation are noted bilaterally. Diagnostic possibilities would include mild chronic microangiopathy, sequela of migraine headaches, vasculitic process, or less likely demyelination Cerebellar tonsil position is normal. The pituitary gland demonstrates normal morphology and signal intensity. No significant temporal horn asymmetry Visualized vascular flow voids and cranial nerves appear within normal limits. The visualized paranasal sinuses are grossly clear. Right mastoid fluid. IMPRESSION: No intracranial mass, mass effect or abnormal enhancement. No acute or recent infarct on diffusion series Scattered small nonspecific periventricular and subcortical white matter lesions with diagnostic possibilities as detailed above. JOB #: [id number] Final Signed by: Juan Carlos Scott MD Signed (Electronic Signature): 07/12/2022 10:27 am Social History Social History Type Response Tobacco Current everyday tob acco user Tobacco Use:. Sex MR Brain WO and W contrast IV * Juan Carlos Scott MD: VERIFY, VERIFY Event Display: Report EXAM DESCRIPTION: MRI Brain w/ + w/o Contrast 07/12/2022 INDICATION: HEADACHE , LUNG CA STAGE 4 TECHNIQUE: Technique: Multiplanar MRI examination of the head including FLAIR and diffusion series. Postcontrast T1-weighted images were obtained in 3 planes. 10 cc of MultiHance contrast was utilized COMPARISON: None available FINDINGS: No intracranial mass, mass effect or abnormal enhancement. Diffusion weighted images demonstrate no focal area of acute or recent infarct. No hydrocephalus, extra-axial fluid collection or blood breakdown products. A few tiny nonspecific foci of periventricular and subcortical white matter T2 signal prolongation are noted bilaterally. Diagnostic possibilities would include mild chronic microangiopathy, sequela of migraine headaches, vasculitic process, or less likely demyelination Cerebellar tonsil position is normal. The pituitary gland demonstrates normal morphology and signal intensity. No significant temporal horn asymmetry Visualized vascular flow voids and cranial nerves appear within normal limits. The visualized paranasal sinuses are grossly clear. Right mastoid fluid. IMPRESSION: No intracranial mass, mass effect or abnormal enhancement. No acute or recent infarct on diffusion series Scattered small nonspecific periventricular and subcortical white matter lesions with diagnostic possibilities as detailed above. JOB #: [id number] Final Signed by: Juan Carlos Scott MD Signed (Electronic Signature): 07/12/2022 10:27 am Patient Care team information Care Team Personnel Name: FLORINDA DIANE Position: No Access Member Role: Primary Care Physician Address: Address: [address] [place] [address]- [place]
--- OUTSIDE RECORDS SUMMARY | 2022-08-16 12:24 | XMS_ITS | Continuity of Care Document ---
Author Name Unknown Organization [facility] Address [address] [place] [address] Care Team Providers Care Hand Twister Name Role Phone FLORINDA DIANE Primary Care Physician [phone] Encounter LTTL_CT FIN NBR [id number] Date(s): 05/18/22 - 05/18/[address] [address]- [place] Discharge Disposition: Home or Self Care Attending Physician: AMINAH BRIGGS Admitting Physician: AMINAH BRIGGS Allergies, Adverse Reactions, Alerts Substance Reaction Severity Status mirtazapine Moderate Active benzodiazepines Unknown Active Neurobion Moderate Active Nicoderm C-Q Moderate Active Chantix Moderate Active Duragesic-25 Moderate Active clonazePAM Moderate Active Assessment and Plan Future Appointments Future Scheduled Tests Radiology* MRI Abdomen w/o Contrast 05/24/22 Medications Ativan 0.5 mg oral tablet 0.5 [...] Exam Date Time Procedure Performing Provider Status 05/18/22 9:[address] Abdomen and Pelvis w/ Contrast Marjorie Brothers (Verified) Notes: (CT Abdomen and Pelvis w/ Contrast) Reason For Exam: STAGE [address] Abdomen and Pelvis w/ Contrast EXAM DESCRIPTION: CT Abdomen and Pelvis w/ Contrast 05/18/2022 INDICATION: STAGE 4 LUNG CANCER RIGHT TECHNIQUE: All CT scans at this facility use at least one of these dose optimization techniques: Automated exposure control; mA and/or kV adjustment per patient size (includes targeted exams where dose is matched to clinical indication); or iterative reconstruction. Technique: Axial CT images of the abdomen/pelvis with IV contrast administration 100 cc of Isovue-300 contrast was utilized COMPARISON: None available FINDINGS: No focal hepatic lesion. Normal enhancement of the main hepatic veins and main portal vein. The spleen is not identified which may reflect previous splenectomy. The common bile duct appears mildly dilated measuring 7.5 mm in diameter with mild central intrahepatic biliary dilatation. No definite findings to suggest choledocholithiasis. Distal common bile duct stricture cannot be excluded. The gallbladder appears mildly distended. No calcified gallstones in the gallbladder. Bilateral adrenal nodularity measuring approximately 1.5 x 2.1 cm on the right and 1.8 x 2.2 cm on the left. Metastatic lesions can not be excluded. No pancreatic mass is identified. No definite peripancreatic inflammatory stranding. Scattered tiny low-attenuation renal lesions bilaterally measuring a few mm in size, too small to characterize. Findings may reflect small cysts. No solid renal mass, hydronephrosis or perinephric fluid collection on either side No pelvic mass identified. Normal caliber abdominal aorta with scattered atherosclerotic calcifications. No retroperitoneal adenopathy in the abdomen or pelvis. No bowel dilatation to suggest obstruction or ileus. No free intraperitoneal air, ascites or inflammatory changes. Dense material within portions of the colon which may reflect oral contrast administration. Appendix not identified. Noncalcified pleural-based nodular opacity in the posterolateral aspect of the right lower lobe on image number 15 measuring 4.1 mm in diameter. Small calcified nodules in the left lung base consistent with granuloma formation or scarring. Mild subsegmental atelectasis or scarring in both lung bases as well. No suspicious regional osseous lesions. Spondylotic changes throughout the visualized spinal axis. IMPRESSION: Bilateral adrenal nodularity as detailed above. Metastatic disease can not be excluded. Intrahepatic and extrahepatic biliary dilatation with common bile duct diameter measuring up to 7.5 mm. No definite pancreatic head mass or calcified stone in the distal common bile duct. Distal common bile duct stricture cannot be excluded. MRCP correlation could be obtained. Tiny low-attenuation renal lesions bilaterally, too small to characterize. Findings may reflect cysts. Nonobstructive bowel pattern. No free air or inflammatory changes Small pleural-based noncalcified nodule in the right lower lobe measuring 4.1 mm in diameter, too small to characterize. Metastatic disease can not be excluded. Dedicated CT chest correlation could be obtained. JOB #: [id number] Final Signed by: Juan Carlos Scott MD Signed (Electronic Signature): 05/18/2022 9:22 am Social History Social History Type Response Tobacco Current everyday tob acco user Tobacco Use:. Sex CT Abdomen and Pelvis W contrast IV * Juan Carlos Scott MD: VERIFY, VERIFY Event Display: Report EXAM DESCRIPTION: CT Abdomen and Pelvis w/ Contrast 05/18/2022 INDICATION: STAGE 4 LUNG CANCER RIGHT TECHNIQUE: All CT scans at this facility use at least one of these dose optimization techniques: Automated exposure control; mA and/or kV adjustment per patient size (includes targeted exams where dose is matched to clinical indication); or iterative reconstruction. Technique: Axial CT images of the abdomen/pelvis with IV contrast administration 100 cc of Isovue-300 contrast was utilized COMPARISON: None available FINDINGS: No focal hepatic lesion. Normal enhancement of the main hepatic veins and main portal vein. The spleen is not identified which may reflect previous splenectomy. The common bile duct appears mildly dilated measuring 7.5 mm in diameter with mild central intrahepatic biliary dilatation. No definite findings to suggest choledocholithiasis. Distal common bile duct stricture cannot be excluded. The gallbladder appears mildly distended. No calcified gallstones in the gallbladder. Bilateral adrenal nodularity measuring approximately 1.5 x 2.1 cm on the right and 1.8 x 2.2 cm on the left. Metastatic lesions can not be excluded. No pancreatic mass is identified. No definite peripancreatic inflammatory stranding. Scattered tiny low-attenuation renal lesions bilaterally measuring a few mm in size, too small to characterize. Findings may reflect small cysts. No solid renal mass, hydronephrosis or perinephric fluid collection on either side No pelvic mass identified. Normal caliber abdominal aorta with scattered atherosclerotic calcifications. No retroperitoneal adenopathy in the abdomen or pelvis. No bowel dilatation to suggest obstruction or ileus. No free intraperitoneal air, ascites or inflammatory changes. Dense material within portions of the colon which may reflect oral contrast administration. Appendix not identified. Noncalcified pleural-based nodular opacity in the posterolateral aspect of the right lower lobe on image number 15 measuring 4.1 mm in diameter. Small calcified nodules in the left lung base consistent with granuloma formation or scarring. Mild subsegmental atelectasis or scarring in both lung bases as well. No suspicious regional osseous lesions. Spondylotic changes throughout the visualized spinal axis. IMPRESSION: Bilateral adrenal nodularity as detailed above. Metastatic disease can not be excluded. Intrahepatic and extrahepatic biliary dilatation with common bile duct diameter measuring up to 7.5 mm. No definite pancreatic head mass or calcified stone in the distal common bile duct. Distal common bile duct stricture cannot be excluded. MRCP correlation could be obtained. Tiny low-attenuation renal lesions bilaterally, too small to characterize. Findings may reflect cysts. Nonobstructive bowel pattern. No free air or inflammatory changes Small pleural-based noncalcified nodule in the right lower lobe measuring 4.1 mm in diameter, too small to characterize. Metastatic disease can not be excluded. Dedicated CT chest correlation could be obtained. JOB #: [id number] Final Signed by: Juan Carlos Scott MD Signed (Electronic Signature): 05/18/2022 9:22 am Patient Care team information Personnel Name: FLORINDA DIANE Address: Address: [address] [place] [address]
--- OUTSIDE RECORDS SUMMARY | 2022-08-16 12:25 | XMS_ITS | Continuity of Care Document ---
Author Name Unknown Organization [facility] Address [address] [place] [id number] Care Team Providers Care Technical Instructor Course Developer Name Role Phone SHANIQUAFLORINDA Thrasher Price Primary Care Physician [phone] Encounter LTTL_AR FIN NBR [id number] Date(s): 05/04/22 - 05/04/[address] [address]- [place] Discharge Disposition: Home or Self Care Attending Physician: Fransico Clarke MD Admitting Physician: Fransico Clarke MD Referring Physician: Fransico Clarke MD Allergies, Adverse Reactions, Alerts Substance Reaction Severity Status mirtazapine Moderate Active benzodiazepines Unknown Active Neurobion Moderate Active Nicoderm C-Q Moderate Active Chantix Moderate Active Duragesic-25 Moderate Active clonazePAM Moderate Active Assessment and Plan Future Appointments Future Scheduled Tests Radiology* MRI Abdomen w/o Contrast 05/18/22 Medications Ativan 0.5 mg oral tablet 0.5 [...] Completed Tonsillectomy Completed Vaginal hysterocolpectomy Completed Results Laboratory List Name Date CBC w/ Diff 05/04/22 Comprehensive Metabolic Panel (CMP) 04/16 Automated Diff 05/04/22 Most recent to oldest [Reference Range]: 1 WBC [4.8-10.8 K/mcL] 12.2 K/mcL *HI* (05/04/22 10:10 AM) RBC [4.20-6.10 Million/mcL] 4.13 Million /mcL *LOW* (05/04/22 10:10 AM) Neutro Auto [42.2-75.2 %] 68.2 % (05/04/22 10:10 AM) Lymph Auto [20.5-51.1 %] 21.4 % (05/04/22 10:10 AM) Sebastian Auto [1.7-9.3 %] 8.3 % (05/04/22 10:10 AM) Basophil Auto [0.0-0.8 %] 0.8 % (05/04/22 10:10 AM) BUN [8-26 mg/dL] 20 mg/dL (05/04/22 10:10 AM) Glucose Level [74-106 mg/dL] 72 mg/dL *LOW* (05/04/22 10:10 AM) Potassium Level [3.5-5.1 mmol/L] 4.7 mmo l/L (05/04/22 10:10 AM) Baso Absolute [0.0-0.2 K/mcL] 0.1 K/mcL (05/04/22 10:10 AM) MCV [80.0-99.0 fL] 98.1 fL (05/04/22 10:10 AM) AST [15-41 IntlUnit/L] 30 IntlUnit/L (05/04/22 10:10 AM) ALT [14-54 IntlUnit/L] 19 IntlUnit/L (05/04/22 10:10 AM) MCHC [32.0-36.0 g/dL] 33.8 g/dL (05/04/22 10:10 AM) Osmolality [275-295 mOsm/kg] 269 mOsm/kg *LOW* (05/04/22 10:10 AM) Sodium Level [134-143 mmol/L] 134 mmol/L (05/04/22 10:10 AM) Lymph Absolute [1.2-3.4 K/mcL] 2.6 K/mcL (05/04/22 10:10 AM) Hct [37.0-52.0 %] 40.5 % (05/04/22 10:10 AM) Calcium Level [8.9-10.3 mg/dL] 9.2 mg/dL (05/04/22 10:10 AM) Sebastian Absolute [0.1-0.6 K/mcL] 1.0 K/mcL *HI* (05/04/22 10:10 AM) Albumin Level [3.5-5.0 g/dL] 3.8 g/dL (05/04/22 10:10 AM) Protein Total [6.5-8.1 g/dL] 7.6 g/dL (05/04/22 10:10 AM) MCH [27.0-31.0 pg] 33.2 pg *HI* (05/04/22 10:10 AM) Neutro Absolute [1.4-6.5 K/mcL] 8.3 K/mc L *HI* (05/04/22 10:10 AM) Bilirubin Total [0.2-1.2 mg/dL] 0.5 mg/d L (05/04/22 10:10 AM) Hgb [12.0-18.0 g/dL] 13.7 g/dL (05/04/22 10:10 AM) Alk Phos [38-130 IntlUnit/L] 106 IntlUni t/L (05/04/22 10:10 AM) MPV [7.4-10.4 fL] 10.9 fL *HI* (05/04/22 10:10 AM) Platelets [130-400 K/mcL] 311 K/mcL (05/04/22 10:10 AM) CO2 [22-32 mmol/L] 28 mmol/L (05/04/22 10:10 AM) Eos Absolute [0.0-0.2 K/mcL] 0.1 K/mcL (05/04/22 10:10 AM) eGFR Non-AA 57 *NA* (05/04/22 10:10 AM) eGFR AA 57 *NA* (05/04/22 10:10 AM) Chloride Level [98-111 mmol/L] 100 mmol/ L (05/04/22 10:10 AM) RDW-CV [11.5-14.5 %] 14.2 % (05/04/22 10:10 AM) A/G Ratio 1.0 *NA* (05/04/22 10:10 AM) BUN/Creat Ratio [8.0-20.0] 18.2 (05/04/22 10:10 AM) Globulin 3.8 *NA* (05/04/22 10:10 AM) Imm Gran Absolute 0.04 *NA* (05/04/22 10:10 AM) Imm Gran Auto [0.0-0.5 %] 0.3 % (05/04/22 10:10 AM) Creatinine Level [0.44-1.00 mg/dL] 1.10 mg/dL *HI* (05/04/22 10:10 AM) Anion Gap [3.0-12.0] 6.0 (05/04/22 10:10 AM) Eos, Auto [0.00-3.00 %] 1.00 % (05/04/22 10:10 AM) Social History Social History Type Response Tobacco Current everyday tob acco user Tobacco Use:. Sex Patient Care team information Personnel Name: FLORINDA DIANE Address: Address: [address] [place] [address]
--- OUTSIDE RECORDS SUMMARY | 2022-08-16 12:25 | XMS_ITS | Continuity of Care Document ---
Author Name Unknown Organization [facility] Address [address] [place] [address] Care Team Providers Care Plant Engineering Manager Name Role Phone FLORINDA DIANE Primary Care Physician [phone] Encounter LTTL_[place] FIN NBR [id number] Date(s): 07/20/22 - 07/20/[address] [address] Encounter Diagnosis Malignant neoplasm of unspecified part of right bronchus or lung(Final) - Discharge Disposition: Home or Self Care Attending Physician: JANEY MARTELL Admitting Physician: JANEY MARTELL Referring Physician: JANEY MARTELL Allergies, Adverse Reactions, Alerts Substance Reaction Severity Status mirtazapine Moderate Active benzodiazepines Unknown Active Neurobion Moderate Active Nicoderm C-Q Moderate Active Chantix Moderate Active Duragesic-25 Moderate Active clonazePAM Moderate Active Assessment and Plan Future Scheduled [...] Laboratory List Name Date CBC w/ Diff 07/20/22 Comprehensive Metabolic Panel 07/20/22 Lactate Dehydrogenase 07/20/22 Automated Diff 07/20/22 Most recent to oldest [Reference Range]: 1 WBC [4.8-10.8 K/mcL] 10.8 K/mcL (07/20/22 10:21 AM) RBC [4.20-5.40 Million/mcL] 3.96 Million /mcL *LOW* (07/20/22 10: AM) Neutro Auto [42.2-75.2 %] 69.5 % (07/20/22 10: AM) Lymph Auto [20.5-51.1 %] 20.2 % *LOW* (07/20/22: AM) Schley Auto [1.7-9.3 %] 8.1 % (07/20/22 10: AM) Basophil Auto [0.0-0.8 %] 1.0 % *HI* (07/20/22: AM) BUN [8-26 mg/dL] 24 mg/dL (07/20/22: AM) Glucose Level [74-106 mg/dL] 95 mg/dL (07/20/22: AM) Potassium Level [3.5-5.1 mmol/L] 3.8 mmo l/L (07/20/22: AM) Baso Absolute [0.0-0.2 K/mcL] 0.1 K/mcL (07/20/22 10: AM) MCV [81.0-99.0 fL] 97.7 fL (07/20/22: AM) AST [15-41 IntlUnit/L] 25 IntlUnit/L (07/20/22 10: AM) ALT [14-54 IntlUnit/L] 17 IntlUnit/L (07/20/22 10: AM) MCHC [32.0-36.0 g/dL] 34.4 g/dL (07/20/22 10: AM) Osmolality [275-295 mOsm/kg] 270 mOsm/kg *LOW* (07/20/22: AM) Sodium Level [134-143 mmol/L] 133 mmol/L *LOW* (07/20/22: AM) Lymph Absolute [1.2-3.4 K/mcL] 2.2 K/mcL (07/20/22 10: AM) Hct [37.0-47.0 %] 38.7 % (07/20/22 10: AM) Calcium Level [8.9-10.3 mg/dL] 9.0 mg/dL (07/20/22 10:21 AM) Schley Absolute [0.1-0.6 K/mcL] 0.9 K/mcL *HI* (07/20/22 10:21 AM) Albumin Level [3.5-5.0 g/dL] 3.9 g/dL (07/20/22 10:21 AM) Protein Total [6.5-8.1 g/dL] 7.8 g/dL (07/20/22 10:21 AM) MCH [27.0-31.0 pg] 33.6 pg *HI* (07/20/22 10:21 AM) Neutro Absolute [1.4-6.5 K/mcL] 7.5 K/mc L *HI* (07/20/22 10: AM) Bilirubin Total [0.2-1.2 mg/dL] 0.5 mg/d L (07/20/22 10: AM) Hgb [12.0-16.0 g/dL] 13.3 g/dL (07/20/22 10:21 AM) Alk Phos [38-130 IntlUnit/L] 93 IntlUnit /L (07/20/22 10:21 AM) LDH [98-192 IntlUnit/L] 171 IntlUnit/L (07/20/22 10:21 AM) MPV [7.4-10.4 fL] 9.2 fL (07/20/22 10:21 AM) Platelets [130-400 K/mcL] 326 K/mcL (07/20/22 10:21 AM) CO2 [22-32 mmol/L] 26 mmol/L (07/20/22 10:21 AM) Eos Absolute [0.0-0.2 K/mcL] 0.1 K/mcL (07/20/22 10:21 AM) Chloride Level [98-111 mmol/L] 99 mmol/L (07/20/22 10:21 AM) RDW-CV [11.5-14.5 %] 13.5 % (07/20/22 10: AM) A/G Ratio 1.0 *NA* (07/20/22 10: AM) BUN/Creat Ratio [8.0-20.0] 22.6 *HI* (07/20/22 10:21 AM) Globulin 3.9 *NA* (07/20/22 10:21 AM) Imm Gran Absolute 0.04 *NA* (07/20/22 10:21 AM) Imm Gran Auto [0.0-0.5 %] 0.4 % (07/20/22 10:21 AM) Creatinine Level [0.44-1.00 mg/dL] 1.06 mg/dL *HI* (07/20/22 10:21 AM) Anion Gap [3.0-12.0] 8.0 (07/20/22 10:21 AM) Eos, Auto [0.00-3.00 %] 0.80 % (07/20/22 10:21 AM) eGFR CKD-EPI [>=60 mL/min/1.73 m2] 59 mL /min/1.73 m2 *LOW* (07/20/22 10:21 AM) Social History Social History Type Response Tobacco Current everyday tob acco user Tobacco Use:. Sex Patient Care team information Care Team Personnel Name: FLORINDA DIANE Position: No Access Member Role: Primary Care Physician Address: Address: [address] [place], [place] [id number] [place] [address]
--- OUTSIDE RECORDS SUMMARY | 2022-08-16 12:25 | XMS_ITS | Continuity of Care Document ---
Author Name Unknown Organization [facility] Address [address] [place] [address] Care Team Providers Care Weed Cooking Operator Name Role Phone CAROLYNE WERNER Primary Care Physician Encounter [facility] NBR [id number] Date(s): 05/04/22 - 05/04/22 [facility] [address] [place], [place] [address] Encounter Diagnosis Biliary obstruction(Discharge Diagnosis) - 05/04/22 Discharge Disposition: Home or Self Care Attending Physician: Fransico Clarke MD Allergies, Adverse Reactions, Alerts Substance Reaction Severity Status mirtazapine Moderate Active benzodiazepines Unknown Active Neurobion Moderate Active Nicoderm C-Q Moderate Active Chantix Moderate Active Duragesic-25 Moderate Active clonazePAM Moderate Active Assessment and Plan Future Appointments Future Scheduled Tests Radiology* MRI Abdomen w/o Contrast 05/18/22 Functional Status 05/04/22 Other exposure to Infectious Disease Non e Medications Ativan 0.5 mg oral tablet 0.5 [...] Splenectomy Completed Tonsillectomy Completed Vaginal hysterocolpectomy Completed Vital Signs Most recent to oldest [Reference Range]: 1 Temperature Temporal Artery [36-38 Deg C ] 36.2 Deg C (05/04/22 9:28 AM) Peripheral Pulse Rate [60-100 bpm] 78 bp m (05/04/22 9:28 AM) Respiratory Rate [12-24 br/min] 20 br/mi n (05/04/22 9:28 AM) Blood Pressure [90-140/60-90 mmHg] 122/8 0mmHg (05/04/22 9:28 AM) Weight 49.4 kg (05/04/22 9:28 AM) Weight Measured (lbs) 108.908 lb (05/04/22 9:28 AM) Antoine Body Weight Calculated 57 kg (05/04/22 9:28 AM) Height 165.10 cm (05/04/22 9:28 AM) Height/Length Measured (inches) 65 inch (05/04/22 9:28 AM) BSA Measured 1.51 m2 (05/04/22 9:28 AM) Body Mass Index 18.12 kg/m2 (05/04/22 9:28 AM) Social History Social History Type Response Tobacco Current everyday tob acco user Tobacco Use:. Sex Physician Outpatient Note * Fransico Clarke MD: PERFORM Event Display: Office Clinic Note Physician Authored Date: [id number] CINTHYA DAWSON :1960 Age:62 years Sex:Female Visit Date:05/04/2022 Primary Care Physician: CAROLYNE WERNER Chief Complaint Abnormal imaging study. History of Present Illness Initial visit.?? 62-year-old female patient of Carolyne Werner APRN with history of stage IV??adenocarcinoma of the lung??currently on tyrosine kinase inhibitor??was found to have??abnormal CT scan of abdomen pelvis performed on 01/25/2022.?? Contrasted CT scan at that time showed??dilation of the intrahe patic ducts bilaterally??and a 10 mm common bile duct.?? Pancreatic duct was described as being??upper limit??of normal.?? There were no pancreatic parenchymal abnormalities noted??on CT.?? Patient has a [id number] smoking history, last smoked cigarettes 2 years ago.?She denies prior alcohol us e.?She denies prior??history of pancreatitis. ??Her cancer diagnosis was made 3 years ago??at [facility].?? Initial treatment involved??a partial??pneumonectomy on the right.?? Postoperatively the patient was found to have??spread to the left lung.?? She has been on Tagrisso for the last 2 years.?? Downward dose adjustment made following non-GI side effects which have improved??and the patient is tolerating her medication??well other than??some mild nausea relieved by Pepto-Bismol.?? Weight is stable. ??Appetite is good.?? She denies abdominal pain,??heartburn, regurgitation, dysphagia,??or??changes in bowel habits. ??She is not had a previous upper or lower endoscopy. ??She has no screw relatives with GI cancers. Review of Systems Pertinent positives and negatives documented in the HPI. Physical Exam Vitals & Measurements T:??36.2?C ??(Temporal Artery)?? HR:??78??(Peripheral)?? RR:??20?? BP:??122/80?? SpO2:??91%?? HT:??165.10??cm?? WT:??49.4??kg?? BMI:??18.12?? BSA:??1.51?? Cachectic white female no acute distress Lungs: Clear to auscultation bilaterally ??heart: Regular rhythm S1-S2 Abdomen:??Active bowel sounds??soft, nontender, no masses organomegaly Assessment/Plan 1.??Biliary obstruction??K83.1 MRI/MRCP for further??evaluation of??asymptomatic??ductal dilation.?? Subtle double duct sign raises the question of an ampullary neoplasm.?Increased risk of??pancreatic??malignancy??given??longstanding??tobacco use. ??labs today including CBC and liver enzymes.?? Return to clinic in 4 to 6 weeks.?Patient is not a surgical candidate??in the event of??pancreatic malignancy??due to??metastatic??lung adenocarcinoma.?However,??patient may be candidate for??endoscopic??therapy??such as??ERCP with??stone extraction??or??stent placement. ??Question false positive CT scan.?? The above possibilities were discussed with the patient??was a very realistic??appreciation??of her underlying disease. Ordered: CBC w/ Diff, Blood, Routine, 05/04/22, Once, Lab Collect, Biliary obstruction, Order for future visit Comprehensive Metabolic Panel, Blood, Routine, 05/04/22, Once, Lab Collect, Biliary obstruction, Order for future visit MRI Abdomen w/o Contrast, *Est. 05/18/22 +/- 2 days, Routine, Reason: Dilated bile ducts, No, No, Metastatic lung adenocarcinoma, dilated intrahepatic ducts and common bile duct. Long smoking history, rule out ampullary mass, Transport Mode: Ambulatory, Biliary obstruction, A... ?? Future Orders CBC w/ Diff, Blood, Routine, 05/04/22, Once, Lab Collect, Biliary obstruction, Order for future visit Comprehensive Metabolic Panel, Blood, Routine, 05/04/22, Once, Lab Collect, Biliary obstruction, Order for future visit MRI Abdomen w/o Contrast, *Est. 05/18/22 +/- 2 days, Routine, Reason: Dilated bile ducts, No, No, Metastatic lung adenocarcinoma, dilated intrahepatic ducts and common bile duct. Long smoking history, rule out ampullary mass, Transport Mode: Ambulatory, Biliary obstruction, A... Problem List/Past Medical History Ongoing Anxiety and depression AP (abdominal pain) Chronic joint pain Edema Fibromyalgia Frequent headaches Hard palate ulcer High risk medication use Insomnia Metastatic adenocarcinoma Nausea Non-small cell lung cancer PTSD (post-traumatic stress disorder) Smoker Urinary frequency Vaginal atrophy Vitamin B 12 deficiency Historical No qualifying data Procedure/Surgical History ???Appendectomy???Elbow class???Oophorectomy???Splenectomy???Tonsillectomy???Vaginal hysterocolpectomy Medications Ativan 0.5 mg oral tablet, 0.5 mg= 1 tab, Oral, BID Emgality Prefilled Pen 120 mg/mL subcutaneous solution galcanezumab-gnlm 120 mg/mL subcutaneous solution, 120 mg, Subcutaneous, every month lactulose 10 g oral powder for reconstitution, 1 packets, Oral, BID lamoTRIgine 150 mg oral tablet, 150 mg= 1 tab, Oral, BID magnesium gluconate 250 mg oral tablet, 250 mg= 1 tab, Oral, Daily Myrbetriq 50 mg oral tablet, extended release, 50 mg= 1 tab, Oral, Daily naproxen sodium 550 mg oral tablet, 550 mg= 1 tab, Oral, BID, PRN Narcan 4 mg/0.1 mL nasal spray, 1 sprays, Nasal, Once omeprazole 40 mg oral delayed release capsule, 40 mg= 1 cap, Oral, Daily ondansetron 4 mg oral tablet, 4 mg= 1 tab, Oral, every 8 hr Tagrisso 80 mg oral tablet, 80 mg= 1 tab, Oral, Daily Allergies Chantix Duragesic-25 Neurobion Nicoderm C-Q clonazePAM mirtazapine benzodiazepines Social History Electronic Cigarette/Vaping Electronic Cigarette Use: Never. Substance Use Past Tobacco Current everyday tobacco user Tobacco Use:. Family History COPD: Father. Dementia: Father. Depression: Father. Heart disease: Mother. Thyroid disorder: Mother. Family Member(s): ?? FATHER, at age: Unknown. Cause of : Family Member(s): ?? MOTHER, at age: Unknown. Cause of : Family Member(s): ?? GPARENT, at age: Unknown. Cause of : Family Member(s): ?? GPARENT, at age: Unknown. Cause of : Family Member(s): ?? GPARENT, at age: Unknown. Cause of : Family Member(s): ?? GPARENT, at age: Unknown. Cause of : Electronically Signed on 05/04/22 10:03 AM Fransico Clarke MD Patient Care team information Personnel Name: CAROLYNE WERNER Address: Address: [address] [place] [address]
--- OUTSIDE RECORDS SUMMARY | 2022-08-16 12:25 | XMS_ITS | Continuity of Care Document ---
Author Name Unknown Organization [facility] Address [address] [place] [address] Care Team Providers Care Police Chief Name Role Phone SHANIQUAFLORINDA Thrasher Primary Care Physician Encounter [facility] [id number] Date(s): 05/24/22 - 05/24/[address] [address] Discharge Disposition: Home or Self Care Attending Physician: Fransico Clarke MD Admitting Physician: Fransico Clarke MD Referring Physician: Fransico Clarke MD Allergies, Adverse Reactions, Alerts Substance Reaction Severity Status mirtazapine Moderate Active benzodiazepines Unknown Active Neurobion Moderate Active Nicoderm C-Q Moderate Active Chantix Moderate Active clonazePAM Moderate Active Duragesic-25 Moderate Active Assessment and Plan Future Appointments Medications Ativan 0.5 mg oral tablet 0.5 [...] Exam Date Time Procedure Performing Provider Status 05/24/22 8:37 AM MRI Abdomen w/o Contrast DomainUser, Ge nerated; Auth (Verified) Notes: (MRI Abdomen w/o Contrast) Reason For Exam: Dilated bile ducts MRI Abdomen w/o Contrast EXAM DESCRIPTION: MRI Abdomen w/o Contrast 05/24/2022 8:37 INDICATION: DILATED BILE DUCTS TECHNIQUE: MRI examination of the abdomen was performed with attention directed to the liver and biliary system. Examination consists of axial in phase and opposed phase gradient echo T1 weighted images, routine T2, fat-suppressed T2 and long TE T2 weighted images. Additionally, MRCP examination was performed with thin-section coronal images including MIP reformat images. COMPARISON: CT abdomen/pelvis examination from 05/18/2022 FINDINGS: The gallbladder is diffusely distended measuring up to 10.5 cm in maximum length. No gallbladder filling defects to suggest cholelithiasis. Smooth dilatation of the common hepatic duct and common bile duct to the ampulla measuring up to 8.2 mm in diameter in the common hepatic duct region. Central intrahepatic biliary dilatation. No common bile duct filling defect to suggest choledocholithiasis. No definite pancreatic head mass identified. Ampullary stricture cannot be excluded. No findings to suggest hepatic steatosis Bilateral adrenal nodularity demonstrating decreased signal on out of phase gradient echo images consistent with adenoma formation. Tiny T2 hyperintense bilateral renal lesions which are difficult to characterize based on size. Normal caliber abdominal aorta. No retroperitoneal adenopathy in the visualized portions of the abdomen. Visualized portions of bowel are nondistended. No suspicious regional marrow lesions. IMPRESSION: Smooth dilatation of the common bile duct and common hepatic duct with central intrahepatic biliary dilatation. No evidence of choledocholithiasis or definite pancreatic head mass. Ampullary region stricture cannot be excluded. Distended gallbladder. No gallbladder filling defects to suggest cholelithiasis. Bilateral adrenal nodularity with MRI characteristics most consistent with adenoma formation. JOB #: [id number] Final Signed by: Juan Carlos Scott MD Signed (Electronic Signature): 05/24/2022 9:01 am Social History Social History Type Response Tobacco Current everyday tob acco user Tobacco Use:. Sex MR Abdomen WO contrast * Juan Carlos Scott MD: VERIFY, VERIFY Event Display: Report EXAM DESCRIPTION: MRI Abdomen w/o Contrast 05/24/2022 8:37 INDICATION: DILATED BILE DUCTS TECHNIQUE: MRI examination of the abdomen was performed with attention directed to the liver and biliary system. Examination consists of axial in phase and opposed phase gradient echo T1 weighted images, routine T2, fat-suppressed T2 and long TE T2 weighted images. Additionally, MRCP examination was performed with thin-section coronal images including MIP reformat images. COMPARISON: CT abdomen/pelvis examination from 05/18/2022 FINDINGS: The gallbladder is diffusely distended measuring up to 10.5 cm in maximum length. No gallbladder filling defects to suggest cholelithiasis. Smooth dilatation of the common hepatic duct and common bile duct to the ampulla measuring up to 8.2 mm in diameter in the common hepatic duct region. Central intrahepatic biliary dilatation. No common bile duct filling defect to suggest choledocholithiasis. No definite pancreatic head mass identified. Ampullary stricture cannot be excluded. No findings to suggest hepatic steatosis Bilateral adrenal nodularity demonstrating decreased signal on out of phase gradient echo images consistent with adenoma formation. Tiny T2 hyperintense bilateral renal lesions which are difficult to characterize based on size. Normal caliber abdominal aorta. No retroperitoneal adenopathy in the visualized portions of the abdomen. Visualized portions of bowel are nondistended. No suspicious regional marrow lesions. IMPRESSION: Smooth dilatation of the common bile duct and common hepatic duct with central intrahepatic biliary dilatation. No evidence of choledocholithiasis or definite pancreatic head mass. Ampullary region stricture cannot be excluded. Distended gallbladder. No gallbladder filling defects to suggest cholelithiasis. Bilateral adrenal nodularity with MRI characteristics most consistent with adenoma formation. JOB #: [id number] Final Signed by: Juan Carlos Scott MD Signed (Electronic Signature): 05/24/2022 9:01 am Patient Care team information Personnel Name: FLORINDA DIANE Address: Address: [address] [place] [address]
--- OUTSIDE RECORDS SUMMARY | 2022-08-16 12:28 | XMS_ITS ---
Author Name Phuc Johnson Address [address], [place] [id number] Organization [facility] Address [address], [place] [id number] Care Team Providers Care Finishing Area Operator Name Role Phone Phuc Johnson Unavailable [phone] PROBLEMS Type Condition ICD9-CM Code [id number] Code Onset Dates Condition Status SNOMED Code Problem Other specified anxiety disorders F41.8 Active 077611427 Problem Post-traumatic stress disorder, unspecified F43.10 Active 46676708 Problem Other chronic pain G89.29 Active 08168 001 Problem Vitamin d deficiency 268.9 Active 85485212 Problem Malignant neoplasm of unspecified part of unspecified bronchus or lung C34.90 Active 644183506 Problem Fibromyalgia 729.1 Active 579987402 Problem Tobacco abuse 305.1 Active 85140011 Problem Skin lesion of face L98.9 Active 50390105 Problem Low blood pressure I95.9 Active 63967 003 Problem Narcotic abuse 305.40 Active 435990332 Problem History of tobacco abuse Z87.891 Active 5582295513590 Problem Globus sensation R09.89 Active 1294407 08 Problem 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 Active 27246 003 Problem Adenocarcinoma of right lung C34.91 Active 607138706806763 00 Problem Abnormal kidney function study R94.4 Active 087198977 Problem High risk medication use Z79.899 Active 986657189 Problem Vitamin B12 deficiency E53.8 Active 058493557 Problem Smoker Z72.0 Active 16142939 Problem PTSD (post-traumatic stress disorder) F43.10 Active Problem Adenocarcinoma C80.1 Active 932271615 Problem Depression F32.9 Active 413240691 Problem Fibromyalgia M79.7 Active 320592709 Problem Anxiety with depression F41.8 Active Problem History of basal cell carcinoma Z85.828 Active 445868339 Problem Chronic pain syndrome G89.4 Active 968431082 Problem Posttraumatic stress disorder F43.10 Active Problem Non-small cell lung cancer (NSCLC) C34.90 Active Problem Anxiety disorder F41.9 Active 6679982 06 Problem Chronic pain G89.29 Active Problem Insomnia G47.00 Active 015937742 ALLERGIES Substance Reaction Event Type Date Status Gabapentin dizzy Drug Allergy Nov, Active Benzodiazepines Unknown Drug Allergy Nov, Activ e Clonazepam Unknown Drug Allergy Nov, Active Duragesic-25 nausea/ vomiting /diarrhea Drug Allergy 15 2021 Active Chantix nausea/vomiting Drug Allergy Nov, Activ e Mobic Unknown Drug Allergy Nov, Active Environmental Unknown Non Drug Allergy Nov, Act cassi Nicoderm CQ anxiety Drug Allergy Nov, Active Steroids bruising Non Drug Allergy Nov, Active ENCOUNTERS Encounter Location Date Diagnosis [facility] [address] [place], [place] [id number] Dec, Visit for wound check Z51.89 [facility] [address] [facility] [address] [place], [place] [id number] 18 Nov, 2021 [facility] [address] [place], [place] [id number] Nov, 2021 Basal cell carcinoma (BCC) of skin of face, unspecified part of face C44.310 and Visit for suture removal Z48.02 [facility] [address] [place], [place] [id number] 30 Oct, 2021 Basal cell carcinoma (BCC) of skin of face, unspecified part of face C44.310 ; PTSD (post-traumatic stress disorder) F43.10 ; Non-small cell lung cancer (NSCLC) C34.90 and Chronic pain G89.29 [facility] [address] [facility] [address] [place], [place] [id number] Oct, [facility] [address] [place] [address] [address] [place], [place] [id number] Oct, Basal cell carcinoma (BCC) of skin of face, unspecified part of face C44.310 ; Non-small cell lung cancer (NSCLC) C34.90 ; Anxiety disorder F41.9 ; Chronic pain G89.29 and PTSD (post-traumatic stress disorder) F43.10 [facility] [address] [place] [address] [address] [place], [place] [id number] Oct, [facility] [address] [place], [place] [id number] September, Basal cell carcinoma (BCC) of skin of face, unspecified part of face C44.310 and Stage 4 malignant neoplasm of lung, unspecified laterality C34.90 [facility] [address] [place], [place] [id number] September, [facility] [address] [place], [place] [id number] September, Neoplasm of unspecified behavior of bone, soft tissue, and skin D49.2 [facility] [address] [place], [place] [id number] Aug, [facility] [address] [place], [place] [id number] Apr, Globus sensation R09.89 ; History of tobacco abuse Z87.891 and Adenocarcinoma of right lung C34.91 [facility] [address] [place], [place] [id number] Feb, Globus sensation R09.89 ; Adenocarcinoma of right lung C34.91 ; Posttraumatic stress disorder F43.10 ; Anxiety with depression F41.8 ; History of tobacco abuse Z87.891 and Chronic pain syndrome G89.4 [facility] [address] [place], [place] [id number] Jan, [facility] [address] [facility] [address] [place], [place] [id number] May, [facility] [address] [facility] [address] [place], [place] [id number] Apr, Fibromyalgia 729.1 ; Chronic pain associated with significant psychosocial dysfunction 338.4 and Vitamin d deficiency 268.9 [facility] [address] [facility] [address] [place], [place] [id number] Apr, [facility] [address] [facility] [address] [place], [place] [id number] Dec, IMMUNIZATIONS No Known Immunizations SOCIAL HISTORY Qualifiers Date Former Smoker REASON FOR REFERRAL FUNCTIONAL STATUS PLAN OF CARE VITAL SIGNS Height 5 ft 3 in in 2021-11-27 Height 5 ft 3 in in 2021-09-25 Height 5 ft 3 in in 2021-09-18 Height 63 in 2019-04-23 Height 63 in 2019-02-19 Height 63 in 2014-04-26 Weight 108 lbs 2021-11-27 Weight 109 lbs 2021-09-25 Weight 109 lbs 2021-09-18 Weight 117 lbs 2019-04-23 Weight 117 lbs 2019-02-19 Weight 128 lbs 2014-04-26 Heart Rate 82 /min 2021-11-27 Heart Rate 76 /min 2014-04-26 Oximetry 98 2021-11-27 BMI 19.13 kg/m2 2021-11-27 BMI 19.31 kg/m2 2021-09-25 BMI 19.31 kg/m2 2021-09-18 BMI 20.72 kg/m2 2019-04-23 BMI 20.72 kg/m2 2019-02-19 BMI 22.67 kg/m2 2014-04-26 Blood pressure systolic 100 mm Hg Blood pressure diastolic 62 mm Hg 2021-11 MEDICATIONS Medication Instructions Dosage Frequency Start Date End Date Du ration Status LaMICtal Active DULoxetine HCl A ctive Tagrisso Active Methadone HCl Ac tive PROCEDURES Procedure Date Ordered Result Body Site SKIN TISSUE REARRANGEMENT November 12, 2021 DIAGNOSTIC FLEXIBLE LARYNGOSCOPY Apr 09, 2019 SHAVE FACE .6 - 1.0 CM September 18, 2021 DIAGNOSTIC FLEXIBLE LARYNGOSCOPY Feb 19, 2019 RESULTS Name Result Date Reference Range SURGICAL PATH 2021-11-12 SURGICAL PATH 2021-09-18 BD BONE DENSITY, DEXA SCAN ALDOLASE ([id number]) ALDOLASE CREATINE KINASE (CK) CREATINE KINASE VITAMIN D - 25(OH) Vitamin D Com Interpretation REASON FOR VISIT ENT 6 mo skin check, ENT Wound 1 mo check, Mupirocin, ENT POST OP SKIN CANCER, ENT POST OP PRESSUREDRESSING, PFP EST PATIENT (S), ENT Excision of basal cell carcinoma of glabella with frozen sectionand reconstruction LOCAL ONLY, update med, ENT- pre-op, PFP EST PATIENT (S), ENT PRE OP, PFP EST PATIENT (S), ENT OR PAT STOP-BANG, ENT-path results, PFP EST PATIENT (S), ENT Skin Lesion, ENT 6wk check globus sensation, ENT 6wk check globus sensation db, twice dailly dosing Omperazole ,re scope, PFP Flexible Laryngoscopy, PFP Est Patient (L), ENT 6wk check globus sensation, PFP EST PATIENT (S), PFP PA Joint Visit. , ENT RN MIDWIFE Globus Sensation, PFP, New Patient, PFP LPR, chart preload, lab results 06/04/14. , RHE New Patient /Fibromyalgia, c/o of discomfort in lower back , head and abdomen area /KN, Fibromyalgia pain , MARI new [place] said to see daily Insurance Providers Health Insurance Type Health Plan Insurance Address Health Plan Insurance Phone Health Plan Insurance Name Health Plan Coverage Dates Member ID Patient Relationship to Subscriber Patient Address Patient Phone Patient Name Patient Date of Subscriber ID Subscriber Name Subscriber Date of Group No [facility] - DO NOT BILL (Write Off) [address] [facility] [id number] [facility] - DO NOT BILL (Write Off) self Kira Levaggi [id number] MEDICARE [address] [place] [address] MEDICARE self Kira Levaggi [id number] [place] [address] [facility] [id number] [place] self Kira Levaggi [id number] MEDICARE [address] [place] [id number] MEDICARE self Kira Levaggi [id number] MEDICARE PART A [address] [facility] [address] MEDICARE PART A self Kira Yesica [id number] [place] MEDIC[place] [address] [place] [address] [place] MEDICARE self Kira Yesica [id number]
[2022-08-16 17:13] LABS: CREATININE 1.2 mg/dL (0.55-1.02); Estimated GFR 51.18 (mL/min/1.73m2)
== END 2022-08-16 12:20 | disposition home or self-care (01) ==
LOC: NCHCN 12:19
PROVIDERS: PCP Nurse Practitioner Family; Visit Provider Family Medicine
DX: M54.12 Radiculopathy, cervical region (principal); C80.1 Malignant (primary) neoplasm, unspecified; C78.01 Secondary malignant neoplasm of right lung
CPT/HCPCS: 82565

== ENCOUNTER 2022-09-09 01:23 | Outpatient (CLI) | payer MEDICARE, MEDICAID, SELFPAY ==
--- NOTE | 2022-09-09 | DI.MRI_ITS ---
Exam(s) MR LUMBAR SPINE WO/W EXAM: MR LUMBAR SPINE WO/W CLINICAL HISTORY: ADENOCARCINOMA METS C80.1 SCOLIOSIS DEFORMITY M41.9 LOW BACK PAIN M54.50 TECHNIQUE: Multiplanar multisequence MRI of the Lumbar Spine was performed. The the cervical, thoracic and lumbar spine examinations were carried out added over a course of 2 da ys due to the length and number of exams. CONTRAST MATERIAL: IV Contrast: 10 mL of Dotarem contrast administered for the cervical, thoracic an d lumbar exams. COMPARISON: CT CT ABDOMEN PELVIS W from 01/25/2022 CR XR WRIST LT COMPLETE from 05/24/2022 FINDINGS: Bones: The last intervertebral disc space is designated the L5/S1 level for the numbering purpose of this examination. The vertebral body heights are well maintained. Prominent scoliosis convex toward the left with apex at L2. there are extensive degenerative signal changes. There is a focal rounded lesion measuring 10 millimeters in diameter in the inferior aspect of the L2 vertebral body which shows high signal on T2 and STIR sequences and shows contrast enhancement. The findings could represent a metastatic lesion. Cord: The conus tip ends at the T12 level. It is of normal size and signal intensity. T12-L1: Loss of disc height and endplate osteophytes eccentric toward the right. Right neural for aminal narrowing. L1-2: Loss of disc height and prominent endplate osteophytes, eccentric toward the right. Right n eural foraminal narrowing. L2-3: Loss of disc height and prominent endplate osteophytes eccentric toward the right on. Severe r ight neural foraminal narrowing L3-4: Mild loss of disc height at, greater on the left side. There is significant left-sided disc b ulging. There are facet degenerative changes combine with the disc bulging to produce mild central c anal stenosis. There is bilateral neural foraminal narrowing. L4-5: Loss of disc height eccentric toward the left where there are prominent endplate osteophytes. Facet degenerative changes also present. Severe left neural foraminal narrowing. L5-S1: Severe loss of disc height. Circumferentially projecting osteophytes and mild disc bulging. Mild facet degenerative changes. No significant central canal stenosis. Mild left neural foraminal narrowing. Soft tissues: The visualized SI joints and sacrum are well maintained. The paraspinal soft tissues ar e unremarkable. IMPRESSION: 10 millimeter enhancing lesion in the inferior plate endplate of L2 may represent a middle static le lay. Multilevel severe degenerative disc changes and call scoliosis producing multilevel bilateral neural foraminal narrowing. Mild central canal stenosis at L3-4. DATA REPOSITORY:
--- NOTE | 2022-09-09 | DI.MRI_ITS ---
Exam(s) MR CERVICAL SPINE WO/W EXAM: MR CERVICAL SPINE WO/W CLINICAL HISTORY: CERVICAL RADICULOPATHY M54.12 ADENOCARCINOMA METS C80.1 WORSE NECK PAIN TECHNIQUE: Multiplanar multisequence MRI of the cervical spine was performed without and following i ntravenous contrast. Dotarem 10 mL IV COMPARISON: MR MRI - CERVICAL SPINE WO CONT from 05/30/2009 FINDINGS: BONES: Vertebral body heights are maintained. Alignment is normal. Degenerative signal changes are se en in the endplates at C4-5 and C5-6, similar to the prior exam. No metastatic lesions noted. Abnor mal areas of enhancement. CERVICAL CORD: Craniovertebral junction is unremarkable. The cervical cord is normal size and signal intensity. SOFT TISSUES: Unremarkable. C2-3: No disc herniation or bulge is identified. No evidence of neural foraminal narrowing. No signi ficant central canal stenosis C3-4: No disc herniation or bulge is identified. No evidence of neural foraminal narrowing. No signif icant central canal stenosis C4-5: No disc herniation or bulge is identified. No evidence of neural foraminal narrowing. No signif icant central canal stenosis C5-6: Moderate loss of disc height and broad-based disc osteophytes eccentric toward the left, causin g severe left neural foraminal narrowing. There is mild effacement of the anterior CSF space but no evidence of impingement on the cord. C6-7: Loss of normal disc height and endplate osteophytes eccentric toward the left, causing severe l eft neural foraminal narrowing. No significant central canal stenosis. C7-T1: No disc herniation or bulge is identified. No evidence of neural foraminal narrowing. No signi ficant central canal stenosis IMPRESSION: Degenerative disc changes at C5-6 and C6-7 cause severe left neural foraminal narrowing. No evidence of metastatic disease. Normal cord signal. DATA REPOSITORY:
--- NOTE | 2022-09-09 | DI.MRI_ITS ---
Exam(s) MR THORACIC SPINE WO/W EXAM: MR THORACIC SPINE WO/W CLINICAL HISTORY: CERVICAL RADICULOPATHY M54.12 ADENOCARCINOMA METS C80.1 WORSE NECK PAIN,. TECHNIQUE: Multiplanar multisequence MRI of the Thoracic spine was performed. The cervical, thoracic and lumbar spine examinations were carried out over 2 days due to the length o f the 3 studies. CONTRAST MATERIAL: IV Contrast: 10 mL of Dotarem contrast administered for the cervical, thoracic an d lumbar spine examinations.. COMPARISON: CT CT CHEST LUNG CANCER SCREEN from 04/24/2018 MR MR LUMBAR SPINE WO/W from 09/09/2022 FINDINGS: Bones: Stable slight compression of the superior endplates of T10 and T11 with superior Schmorl's nod es.. Scoliosis convex toward the right in the thoracic region. Convex toward the left at the thoracolumba r junction. The overall signal characteristics are unremarkable. There are two small high signal lesions seen in the right side of the T 11 vertebral body, measuring 5 and 7 millimeters which show postcontrast enhancement. The findings may represent metastatic lesio ns. There is a high signal lesion on T1 weighted images in the T9 vertebral body which likely represents a hemangioma. No significant neural foraminal narrowing. Cord: The thoracic cord is normal size and signal intensity. No intrinsic cord lesion is present. Discs: There is small endplate osteophytes at the T10-11 level. There remaining levels are unremarka ble. Soft tissues: Normal. IMPRESSION: Two small focal high signal enhancing lesions in the T11 vertebral body could represent metastatic le sions. No abnormal cord lesions. DATA REPOSITORY:
[2022-09-10] MEDS: Gadoterate meglumine 20 ML SYRINGE 10 ML IVP (12:46)
[2022-09-10] MEDS: Normal Saline Flush 10 ML SYR IVP (12:46)
== END 2022-09-09 01:43 ==
PROVIDERS: PCP Nurse Practitioner Family; Visit Provider Family Medicine
DX: M54.12 Radiculopathy, cervical region (principal); C80.1 Malignant (primary) neoplasm, unspecified; M48.04 Spinal stenosis, thoracic region
CPT/HCPCS: 72158; 72156; 72157

== ENCOUNTER 2022-09-14 11:34 | Outpatient (REF) | payer MEDICARE, MEDICAID, SELFPAY ==
[2022-09-14 15:47] LABS: Abs Immature Grans 0.06 10^3/uL (0.0-0.06); Absolute Basophil Count 0.08 10^3/uL (0.0-0.2); Absolute Eosinophil Count 0.03 10^3/uL (0.0-0.7); Absolute Lymphocyte Count 2.13 10^3/uL (1.2-3.4); Absolute Monocyte Count 0.61 10^3/uL (0.1-0.8); Absolute Neutrophil Count 7.65 10^3/uL (1.2-6.7); Basophils % 0.8; Eosinophils % 0.3; HCT 42.8 % (36.0-46.0); HGB 14.5 g/dL (11.2-15.7); Immature Grans % 0.6; Lymphocytes % 20.2; MCH 33.4 pg (27.0-33.0); MCHC 33.9 % (32.0-36.0); MCV 99 fL (80-95); MPV 10.3 fL (8.0-11.0); Monocytes % 5.8; Neutrophils % 72.3; Platelet Count 348 10^3/uL (130-400); RBC 4.34 10^6/uL (3.93-5.22); RDW 14.7 % (11.7-14.6); WBC 10.56 10^3/uL (4.4-10.8)
[2022-09-14 16:03] LABS: ALT 30 U/L (14-59); AST 25 U/L (15-37); Albumin 3.9 g/dL (3.4-5.0); Alkaline Phosphatase 118 U/L (46-116); BUN 26 mg/dL (7-18); Bilirubin, Total 0.4 mg/dL (0.2-1.0); Calcium 9.6 mg/dL (8.5-10.1); Chloride 105 mmol/L (98-107); Glucose 101 mg/dL (74-106); Sodium 140 mmol/L (136-145); TSH 0.82 uIU/mL (0.36-3.74); Total Protein 8.4 g/dL (6.4-8.2)
== END 2022-09-14 11:35 | disposition home or self-care (01) ==
LOC: NCHCN 11:34
PROVIDERS: PCP Nurse Practitioner Family; Visit Provider Nurse Practitioner Family
DX: R93.89 Abnormal findings on diagnostic imaging of other specified body structures (principal); M54.59 Other low back pain; C78.01 Secondary malignant neoplasm of right lung; C78.02 Secondary malignant neoplasm of left lung
CPT/HCPCS: 80053; 84443; 85025

== ENCOUNTER 2022-09-23 09:08 | Outpatient (REF) | payer MEDICARE, MEDICAID, SELFPAY ==
[2022-09-24 11:18] LABS: Lyme Ab w Rflx to Lyme Confirm Negative (Negative)
[2022-09-26 18:42] LABS: Anaplasma phagocytophilum Negative (Negative); B. miyamotoi PCR Negative (Negative); Babesia divergens/MO-1 Negative (Negative); Babesia duncani Negative (Negative); Babesia microti Negative (Negative); Ehrlichia chaffeensis Negative (Negative); Ehrlichia ewingii/canis Negative (Negative); Ehrlichia muris eauclairensis Negative (Negative)
== END 2022-09-23 09:09 | disposition home or self-care (01) ==
LOC: NCHCN 09:08
PROVIDERS: PCP Nurse Practitioner Family; Visit Provider Nurse Practitioner Family
DX: W57.XXXA Bitten or stung by nonvenomous insect and other nonvenomous arthropods, initial encounter (principal); T14.8XXA Other injury of unspecified body region, initial encounter
CPT/HCPCS: 87798; 86618

== ENCOUNTER → 2022-10-18 14:29 | Outpatient (BNVA) | payer MEDICARE, MEDICAID, SELFPAY | PROVIDERS: PCP Nurse Practitioner Family; Visit Provider Nurse Practitioner Gerontology | DX: R10.2 Pelvic and perineal pain (principal); R35.0 Frequency of micturition | CPT/HCPCS: 51798; 99214 ==

== ENCOUNTER 2022-10-22 02:03 | Outpatient (CLI) | payer MEDICARE, MEDICAID, SELFPAY ==
[2022-10-22 08:54] LABS: Abs Immature Grans 0.05 10^3/uL (0.0-0.06); Absolute Basophil Count 0.13 10^3/uL (0.0-0.2); Absolute Lymphocyte Count 3.02 10^3/uL (1.2-3.4); Basophils % 0.8; Eosinophils % 1.5; HCT 43.3 % (36.0-46.0); HGB 14.7 g/dL (11.2-15.7); Immature Grans % 0.3; Lymphocytes % 19.1; MCH 33.8 pg (27.0-33.0); MCHC 33.9 % (32.0-36.0); MCV 100 fL (80-95); MPV 9.3 fL (8.0-11.0); Monocytes % 7.7; Neutrophils % 70.6; Platelet Count 364 10^3/uL (130-400); RBC 4.35 10^6/uL (3.93-5.22); RDW 15.2 % (11.7-14.6); RDW-SD 56.5 fL; WBC 15.81 10^3/uL (4.4-10.8)
[2022-10-22 08:55] LABS: Absolute Eosinophil Count 0.24 10^3/uL (0.0-0.7); Absolute Monocyte Count 1.22 10^3/uL (0.1-0.8); Absolute Neutrophil Count 11.16 10^3/uL (1.2-6.7)
[2022-10-22 09:28] LABS: ALT 30 U/L (14-59); AST 23 U/L (15-37); Albumin 3.7 g/dL (3.4-5.0); Alkaline Phosphatase 115 U/L (46-116); Anion Gap 5.2 mmol/L (3-11); BUN 30 mg/dL (7-18); Bilirubin, Total 0.3 mg/dL (0.2-1.0); CO2 30.8 mmol/L (21.0-32.0); CREATININE 1.1 mg/dL (0.55-1.02); Calcium 9.1 mg/dL (8.5-10.1); Chloride 103 mmol/L (98-107); Estimated GFR 56.81 (mL/min/1.73m2); Glucose 102 mg/dL (74-106); Potassium 4.8 mmol/L (3.5-5.1); Sodium 139 mmol/L (136-145); Total Protein 8.2 g/dL (6.4-8.2)
== END 2022-10-22 02:04 | disposition home or self-care (01) ==
LOC: LBO 02:04
PROVIDERS: PCP Nurse Practitioner Family; Visit Provider Internal Medicine
DX: C78.01 Secondary malignant neoplasm of right lung (principal); C78.02 Secondary malignant neoplasm of left lung
CPT/HCPCS: 36415; 80053; 85025

== ENCOUNTER → 2022-10-28 08:32 | Outpatient (BNVA) | payer MEDICARE, MEDICAID, SELFPAY | PROVIDERS: PCP Nurse Practitioner Family; Referring Provider Nurse Practitioner Family; Visit Provider Nurse Practitioner Gerontology | DX: R35.0 Frequency of micturition (principal); K59.00 Constipation, unspecified; T50.995A Adverse effect of other drugs, medicaments and biological substances, initial encounter | CPT/HCPCS: 99441 ==

== ENCOUNTER 2022-11-15 14:33 | Outpatient (REF) | payer MEDICARE, MEDICAID, SELFPAY ==
[2022-11-15 16:09] LABS: HCT 44.4 % (36.0-46.0); MCH 32.8 pg (27.0-33.0); MCHC 33.8 % (32.0-36.0); MCV 97 fL (80-95); MPV 10.9 fL (8.0-11.0); Platelet Count 358 10^3/uL (130-400); RBC 4.57 10^6/uL (3.93-5.22); RDW 14.4 % (11.7-14.6); RDW-SD 51.6 fL; WBC 15.54 10^3/uL (4.4-10.8)
[2022-11-15 16:13] LABS: ALT 19 U/L (14-59); AST 26 U/L (15-37); Albumin 4.1 g/dL (3.4-5.0); Alkaline Phosphatase 108 U/L (46-116); Anion Gap 5.2 mmol/L (3-11); BUN 30 mg/dL (7-18); Bilirubin, Total 0.5 mg/dL (0.2-1.0); CO2 29.8 mmol/L (21.0-32.0); CREATININE 1.1 mg/dL (0.55-1.02); Calcium 9.4 mg/dL (8.5-10.1); Chloride 101 mmol/L (98-107); Estimated GFR 56.81 (mL/min/1.73m2); Glucose 103 mg/dL (74-106); Potassium 5.1 mmol/L (3.5-5.1); Sodium 136 mmol/L (136-145); Total Protein 8.4 g/dL (6.4-8.2)
[2022-11-19 12:19] LABS: Lamotrigine 3.5 mcg/mL (3.0-15.0)
== END 2022-11-15 14:34 | disposition home or self-care (01) ==
LOC: NCHCN 14:33
PROVIDERS: PCP Nurse Practitioner Family; Visit Provider Nurse Practitioner Family
DX: L29.8 Other pruritus (principal); F41.9 Anxiety disorder, unspecified; G89.29 Other chronic pain
CPT/HCPCS: 80053; 80175; 85027; 87480; 87510; 87660

== ENCOUNTER 2022-11-20 08:12 | Emergency (ER) | payer MEDICARE, MEDICAID, SELFPAY ==
[2022-11-20 08:17] VITALS: BP 130/77; PULSE 84; RESP 20; TEMP 36.9; O2SAT 97
--- NOTE | 2022-11-20 08:34 | W.ED.GENAD ---
Discharge Plan Disposition Patient Disposition: Home Discharge Details Clinical Impression: Numbness and tingling of both legs Primary Care Provider: Carolyne Werner ED Provider: Judah Burdick Home Meds and New Rx's Prescriptions: Continued naloxone [Narcan] 4 mg/actuation spray,non-aerosol 4 mg intranasal DIRECTED PRN Rx Instructions: spray 1 dose into ONE nostril; alternate nostrils w each dose until help arrives lamotrigine [Lamictal] 150 mg tablet 300 mg PO DAILY docusate calcium 240 mg capsule 240 mg PO BID methadone 5 mg tablet 5 mg PO TID lactulose 10 gram/15 mL (15 mL) solution 15 ml PO .COMPLEX Rx Instructions: Take 1-2 tsp QAM to prevent constipation. omeprazole 40 mg capsule,delayed release(DR/EC) 40 mg PO DAILY trazodone 50 mg tablet 200 mg PO QHS PRN naproxen sodium 550 mg tablet 550 mg PO BID PRN Tagrisso 80 mg tablet 40 mg PO DAILY duloxetine 60 mg capsule,delayed release(DR/EC) 120 mg PO DAILY lorazepam [Ativan] 0.5 mg tablet 2.5 mg PO TID PRN lidocaine 4 % adhesive patch,medicated 1 patch topical DAILY PRN morphine 30 mg capsule,extend.release pellets 30 mg PO Q12H Myrbetriq 25 mg tablet extended release 24 hr 25 mg PO DAILY Qty: 90 0RF ondansetron 4 mg tablet,disintegrating 4 mg PO Q8H Aimovig Autoinjector 140 mg/mL auto-injector 140 mg subcut QMONTH Qty: 1 3RF hydroxyzine HCl 25 mg tablet 25 mg PO Q6H PRN PRN (Reason: headaches) Qty: 60 3RF aripiprazole 10 mg tablet 15 mg PO DAILY Patient Comments: TAKE ONE TABLET BY MOUTH EVERY DAY Myrbetriq 50 mg tablet extended release 24 hr 50 mg PO DAILY Patient Comments: TAKE 1 TABLET BY MOUTH ONCE DAILY oxycodone [OxyContin] 15 mg tablet,oral only,ext.rel.12 hr 15 mg PO Q12H PRN PRN Patient Comments: TAKE ONE TABLET BY MOUTH EVERY 12 HOURS Discharge Instructions Additional Instructions: You are seen in the emergency department for your leg pain. Your CAT scan showed no sign of any blockages of your arteries. Your ultrasound showed no sign of any DVTs. Please return to the emergency department if you take any falls have any worsening pain or develop any fevers or chills. Otherwise please follow-up with your primary care provider next week. Discharge Data Discharge Date/Time-TO BE ENTERED AT DEPARTURE: 11/20/22 10:39 Medical Decision Making This is an overall well-appearing normothermic and not tachycardic 62-year-old female with non-small cell lung cancer currently on osimertinib now with bilateral lower extremity pain and history of tobacco use and malignancy concerning for peripheral vascular disease versus arterial insufficiency for which patient will undergo CT angiogram with runoffs of her bilateral lower extremities. She has no changes of phlegmasia however DVT is certainly a possibility so we will order bilateral lower extremity duplex studies. No pain out of proportion to suggest necrotizing soft tissue infection. I had initially ordered a D-dimer was planning on completing a limited bedside ultrasound however reportedly there is an glass installer technician available. Soft nontender abdomen so I am not concerned for intra-abdominal infection. Specifically no right lower quadrant tenderness to suggest appendicitis. No left lower quadrant tenderness to suggest diverticulitis. No dysuria nor frequency to suggest urinary tract infection. I considered sepsis however the patient denied fevers and is overall well-appearing so I did not order blood cultures lactate nor treat empirically with IV antibiotics. No chest pain to suggest PE so I did not order a D-dimer. I considered heart failure however the patient has no history of heart failure and has no significant lower extremity edema on exam. Furthermore she is not short of breath so I did not order a proBNP nor complete a bedside echocardiogram. No history of back pain no trauma to suggest benefit from CT thorax. Will reassess following labs and imaging. 9:38 AM CBC significant for marked leukocytosis. No anemia. No thrombocytopenia. Basic metabolic panel with CKD but no SHELBIE. No acute electrolyte abnormalities. Mild hyperglycemia. No anion gap to suggest DKA. 10:15 AM DVT study negative for DVTs. CT angiogram showing no signs of aneurysm or stenosis of arterial use of the abdomen and lower extremities. I met with the patient and explained the reassuring results. I advised return if she develops fevers worsening pain or if she took any falls. She reported that she had a upcoming primary care follow-up appointment. Patient does not have a history of diabetes to suggest peripheral neuropathy. Chronic conditions affecting the care of the patient: Lung cancer History obtained from an outside historian: N/A External record review: [facility] EMR Medications: N/A Social determinants of health affecting disposition: N/A Management discussed with: N/A Treatment/interventions considered: Hospitalization but deferred to pursue an empiric trial of expectant outpatient management. Response to therapies provided: N/A HPI General Date/Time Provider Initiated Documentation: 11/20/22 08:34. HPI Narrative: This is a 62-year-old female with history of non-small cell lung cancer on outpatient osimertinib now in the ED in the setting of 4 months of lower extremity pain. Patient also endorses numbness and tingling in her bilateral lower extremities. She has never had a PE nor DVT. She has no history of heart failure. She has not taken any falls onto her lower extremity. She denies any fevers chills nausea vomiting. She reports that her pain extends from her groin down to her toes bilaterally. She said that she had been nauseous and vomiting for 36 hours but this resolved at approximately 3 AM this morning. She is having no residual abdominal pain. She has not felt short of breath and she denies chest pain. She smokes cigarettes. She denies any headaches. No dysuria nor frequency. Related Data Home Medications Medication Instructions Recorded Confirmed docusate calcium 240 mg capsule 240 mg PO BID 01/28/22 11/20/22 lactulose 10 gram/15 mL (15 mL) 15 ml PO .COMPLEX 01/28/22 06/16/22 oral solution lamotrigine 150 mg tablet 300 mg PO DAILY 01/28/22 11/20/22 (Lamictal) methadone 5 mg tablet 5 mg PO TID 01/28/22 06/16/22 naloxone 4 mg/actuation nasal 4 mg intranasal DIRECTED PRN 01/28/22 11/20/22 spray (Narcan) naproxen sodium 550 mg tablet 550 mg PO BID PRN 01/28/22 11/20/22 omeprazole 40 mg capsule,delayed 40 mg PO DAILY 01/28/22 11/20/22 release trazodone 50 mg tablet 200 mg PO QHS PRN 01/28/22 11/20/22 ondansetron 4 mg disintegrating 4 mg PO Q8H 02/12/22 11/20/22 tablet osimertinib 80 mg tablet (Tagrisso) 40 mg PO DAILY 02/25/22 11/20/22 erenumab-aooe 140 mg/mL 140 mg subcut QMONTH #1 mL 05/06/22 06/16/22 subcutaneous auto-injector (Aimovig Autoinjector) hydroxyzine HCl 25 mg tablet 25 mg PO Q6H PRN PRN headaches #60 07/05/22 tabs duloxetine 60 mg capsule,delayed 120 mg PO DAILY 10/18/22 11/20/22 release lidocaine 4 % topical patch 1 patch topical DAILY PRN 10/18/22 11/20/22 lorazepam 0.5 mg tablet (Ativan) 2.5 mg PO TID PRN 10/18/22 11/20/22 morphine 30 mg capsule,extended 30 mg PO Q12H 10/18/22 release pellets mirabegron 25 mg tablet,extended 25 mg PO DAILY #90 tabs 10/28/22 10/28/22 release 24 hr (Myrbetriq) aripiprazole 10 mg tablet 15 mg PO DAILY 11/20/22 11/20/22 mirabegron 50 mg tablet,extended 50 mg PO DAILY 11/20/22 11/20/22 release 24 hr (Myrbetriq) oxycodone 15 mg tablet,crush 15 mg PO Q12H PRN PRN 11/20/22 11/20/22 resistant,extended release 12 hr (OxyContin) Previous Rx's Medication Instructions Recorded erenumab-aooe 140 mg/mL 140 mg subcut QMONTH #1 mL 05/06/22 subcutaneous auto-injector (Aimovig Autoinjector) hydroxyzine HCl 25 mg tablet 25 mg PO Q6H PRN PRN headaches #60 07/05/22 tabs mirabegron 25 mg tablet,extended 25 mg PO DAILY #90 tabs 10/28/22 release 24 hr (Myrbetriq) Allergies Allergy/AdvReac Type Severity Reaction Status Date / Time clonazepam Allergy Intermediate Verified 11/20/22 08:20 fentanyl [From Duragesic] Allergy Intermediate Verified 11/20/22 08:20 gabapentin [From Neurontin] Allergy Intermediate Verified 11/20/22 08:20 mirtazapine Allergy Intermediate Verified 11/20/22 08:20 nicotine [From Nicoderm CQ] Allergy Intermediate Verified 11/20/22 08:20 varenicline [From Chantix] Allergy Intermediate Verified 11/20/22 08:20 Benzodiazepines Allergy Unknown Verified 11/20/22 08:20 steroids Allergy Mild Uncoded 11/20/22 08:20 enviormental Allergy Unknown Uncoded 11/20/22 08:20 General Stated Complaint: [facility]Medical OUMAR: 3 PFSH All Active Problems (Updated 11/20/22 @ 10:21 by Judah Burdick MD) Numbness and tingling of both legs (Acute) Globus sensation (Acute) Adenocarcinoma of right lung (Acute) Posttraumatic stress disorder (Acute) Anxiety and depression (Acute) History of tobacco abuse (Acute) Chronic pain syndrome (Chronic) Stage 4 malignant neoplasm of lung (Acute) Basal cell carcinoma (BCC) of skin of face (Acute) New persistent daily headache (Acute) Dysuria (Acute) Localized swelling of both lower legs (Acute) Occipital headache (Acute) H/O urinary frequency (Acute) Medical History Abnormal findings on diagnostic imaging of abdomen Adenocarcinoma, metastatic Anxiety disorder Chronic pain Constipation Creatinine elevation Fibromyalgia Headache High risk medication use History of depression Hot flashes Insect bite Insomnia Leg edema Low blood pressure Medication monitoring encounter Nausea Night sweats Non-small cell lung cancer Skin lesion of face Smoker Vaginal atrophy Vitamin B12 deficiency anemia, unspecified Surgical History H/O elbow surgery H/O splenectomy H/O total hysterectomy History of tonsillectomy Status post lobectomy of lung Social History Smoking/Tobacco Use Status: Current every day Tobacco Type: cigarettes Smoking risk assessment performed?: Yes Alcohol Intake: never Drug use: Daily Substance use type: crack/cocaine Housing: house Do you feel safe at home: Yes Do you feel safe in your relationship?: Yes Exam Narrative Exam Narrative: General: Well-appearing in no acute distress speaking in complete sentences. Head: Normocephalic, atraumatic. Eye: Pupils equal, round reactive to light. Extraocular eye movements intact. No conjunctival injection. No scleral icterus. Ear, nose, mouth, throat: Grossly normal inspection. Normal voice, handling secretions normally. Neck: Trachea midline. Cardiovascular: Well-perfused distal extremities. Regular rate and rhythm. Respiratory: Nonlabored respiration. Clear lungs bilaterally. Gastrointestinal: Nondistended abdomen. Soft nontender abdomen. Musculoskeletal: No significant lower extremity edema. Moving all 4 extremities spontaneously. No calf tenderness. Bilateral feet warm and well-perfused with 2+ PT and DP pulses. 5 out of 5 bilateral lower extremity strength. No tenderness throughout calves knees and thighs. Skin: Normal for age and race, grossly normal temperature and turgor. No acute rash. Neurologic: Alert and appropriate, no apparent acute deficits. Psychiatric: Mood and manner are appropriate. Grooming and personal hygiene are appropriate. Course Vital Signs Vital signs: Vital Signs Pulse 84 11/20/22 08:17 Blood Pressure 130/77 11/20/22 08:17 Pulse Oximetry 97 11/20/22 08:17 Pulse 84 11/20/22 08:17 Respiratory Effort Normal, Non-Labored 11/20/22 08:26 Blood Pressure 130/77 11/20/22 08:17 Blood Pressure Position Sitting 11/20/22 08:17 Pulse Oximetry 97 11/20/22 08:17 Oxygen Delivery Method Room Air 11/20/22 08:17 Oxygen Flow Rate 0 11/20/22 08:17
--- NOTE | 2022-11-20 08:45 | DI.US_ITS ---
Exam(s) US EXTREMITY VENOUS BI EXAM: US EXTREMITY VENOUS BI CLINICAL HISTORY: Left lower extremity tingling. TECHNIQUE: Bilateral lower extremity venous ultrasound performed using grayscale, color-flow, and sp ectral Doppler analysis. COMPARISON: No exams were available for comparison FINDINGS: The bilateral common femoral, femoral and popliteal veins demonstrate normal compressibility, augment ation, and color Doppler. The posterior tibial veins are patent. IMPRESSION: Right: Negative for DVT Left: Negative for DVT DATA REPOSITORY:
--- NOTE | 2022-11-20 08:50 | DI.CT_ITS ---
Exam(s) CT ABD AORTA CTA W RUNOFF EXAM: CT ABD AORTA CTA W RUNOFF CLINICAL HISTORY: Lower extremity pain bilaterally. TECHNIQUE: Imaging Protocol: Axial CT angiography was performed with multi-slice acquisition and mu lti-planar and/or 3D reconstructions. CONTRAST MATERIAL: Intravenous: Omnipaque 350 Contrast volume:150 mL contrast route:IV - Oral: / no COMPARISON: CT CT ABDOMEN PELVIS W from 01/25/2022 FINDINGS: Vascular Structures: Minimal atherosclerotic changes. Abdomen: Celiac Tivoli/SMA: No evidence of stenosis. Renal Arteries: No evidence of stenosis. There is a single renal artery perfusing each kidney. Aorta: No aneurysm. No dissection. Pelvis: Iliac Arteries: No evidence of stenosis. Common Femoral Arteries: No evidence of stenosis. Lower extremities: Right: Common Femoral: No evidence of stenosis. Superficial Femoral: No evidence of stenosis. Popliteal: No evidence of stenosis. Knee Trifurcation: No evidence of stenosis. Posterior Tibial: No evidence of stenosis. Dorsalis Pedis: No evidence of stenosis. Left: Common Femoral: No evidence of stenosis. Superficial Femoral: No evidence of stenosis. Popliteal: No evidence of stenosis. Knee Trifurcation: No evidence of stenosis. Posterior Tibial: No evidence of stenosis. Dorsalis Pedis: No evidence of stenosis. Soft Tissues: Lung bases: Stable peripheral calcified granulomas. Liver: Normal density. No measurable mass. Gallbladder and biliary tract: No radiodense calculus. Stable mild biliary and pancreatic ductal dil ation. Pancreas: Normal density, no abnormal calcifications or inflammatory process. Spleen: Not seen Kidneys: Normal size, contour and axis. No radiodense stones or obstructive uropathy. No masses seen. Adrenal glands: No masses seen. Aorta: Abdominal portion non-dilated. Bladder: Symmetric distention, no gross wall thickening. Bowel: Limited evaluation due to lack of oral contrast and lack of intra-abdominal fat. High-density material noted in colon. No obstruction or bowel wall thickening. Peritoneal cavity: No ascites, collection or mesenteric inflammatory response. Bones: Scoliosis and degenerative changes. IMPRESSION: No evidence of vascular occlusion. Mild atherosclerotic changes. No acute abnormality in the abdome n or pelvis.. RADIATION DOSE DELIVERED: 756.25mGy.cm Total DLP DATA REPOSITORY: All CT scans at this facility are submitted to the National Radiology Data Registry (NRDR) Dose Index Registry (DIR) with the [employer] (ACR). RADIATION OPTIMIZATION: All CT scans at this facility use at least one of these dose optimization te chniques: automated exposure control; mA and/or kV adjustment per patient size (includes targeted exa ms where dose is matched to clinical indication); or iterative reconstruction.
[2022-11-20 09:03] LABS: Abs Immature Grans 0.06 10^3/uL (0.0-0.06); Absolute Basophil Count 0.04 10^3/uL (0.0-0.2); Absolute Lymphocyte Count 2.75 10^3/uL (1.2-3.4); Absolute Monocyte Count 2.25 10^3/uL (0.1-0.8); Absolute Neutrophil Count 12.88 10^3/uL (1.2-6.7); Basophils % 0.2; Eosinophils % 0.1; HCT 42.1 % (36.0-46.0); HGB 14.6 g/dL (11.2-15.7); Immature Grans % 0.3; Lymphocytes % 15.3; MCHC 34.7 % (32.0-36.0); MCV 95 fL (80-95); MPV 8.7 fL (8.0-11.0); Monocytes % 12.5; Neutrophils % 71.6; Platelet Count 358 10^3/uL (130-400); RBC 4.42 10^6/uL (3.93-5.22); RDW 13.9 % (11.7-14.6); RDW-SD 49.1 fL; WBC 17.99 10^3/uL (4.4-10.8)
[2022-11-20 09:14] LABS: Anion Gap 10.8 mmol/L (3-11); BUN 35 mg/dL (7-18); CO2 27.2 mmol/L (21.0-32.0); CREATININE 1.3 mg/dL (0.55-1.02); Calcium 8.8 mg/dL (8.5-10.1); Chloride 101 mmol/L (98-107); Estimated GFR 46.49 (mL/min/1.73m2); Glucose 108 mg/dL (74-106); Potassium 3.5 mmol/L (3.5-5.1); Sodium 139 mmol/L (136-145)
[2022-11-20 09:17] LABS: Prothrombin Time 9.9 sec (9.3-11.0)
[2022-11-20 09:28] LABS: Absolute Eosinophil Count 0.02 10^3/uL (0.0-0.7); Diff Comment Diff Reviewed; RBC Morphology Normal
[2022-11-20] MEDS: Normal Saline Flush 10 ML SYR IVP (09:46)
[2022-11-20] MEDS: Omnipaque 350 MG/ML 100 ML BTL IJ (09:53)
[2022-11-20] MEDS: Normal Saline - Diluent 50 ML VIAL IJ (09:54)
--- NOTE | 2022-11-20 10:12 | DI.VRAD_ITS ---
PROCEDURE INFORMATION: Exam: CTA Abdominal Aorta and Bilateral Lower Extremities (Run-off) With Contrast Exam date and time: 11/20/2022 9:44 AM Age: 62 years old Clinical indication: Other: Pain, tingling ble TECHNIQUE: Imaging protocol: Computed tomographic angiography of the of the abdominal aorta, pelvis and bilateral lower extremities with contrast. 3D rendering (Not supervised by radiologist): MIP and/or 3D reconstructed images were created by the technologist. COMPARISON: CT ABDOMEN PELVIS W 01/25/2022 3:50 PM FINDINGS: Aorta: No aortic aneurysm. No aortic dissection. Celiac trunk and mesenteric arteries: No occlusion or significant stenosis. Renal arteries: No occlusion or significant stenosis. Right iliac arteries: No occlusion or significant stenosis. Right femoral/popliteal arteries: No occlusion or significant stenosis. Right infrapopliteal arteries: No occlusion or significant stenosis. Left iliac arteries: No occlusion or significant stenosis. Left femoral/popliteal arteries: No occlusion or significant stenosis. Left infrapopliteal arteries: No occlusion or significant stenosis. Liver: No mass. Gallbladder and bile ducts: Unremarkable. No calcified stones. No ductal dilation. Pancreas: Unremarkable. No mass. No ductal dilation. Spleen: Spleen is absent possibly from splenectomy but there are no surgical clips in the left upper quadrant. Spleen could be congenitally absent. Adrenal glands: There is diffuse bilateral nonspecific adrenal enlargement, most likely related to acute illness. However, this finding was present on the prior examination. Kidneys and ureters: Normal. No mass. Stomach and bowel: Unremarkable. No obstruction. No mucosal thickening. Appendix: No evidence of appendicitis. Urinary bladder: Unremarkable. No mass. Reproductive: The uterus and ovaries are not seen. Intraperitoneal space: Unremarkable. No free air. No significant fluid collection. Lymph nodes: No lymphadenopathy. Bones/joints: Again seen is levoscoliosis of the lumbar spine secondary to asymmetric iejsu-heynwss-gybi-left disc space narrowing. Soft tissues: Unremarkable. IMPRESSION: 1. No signs of aneurysm or stenosis of the arterial of the abdomen extremities. 2. The spleen is not seen either congenitally absent or from splenectomy. 3. The uterus and ovaries are not seen. Dictated and Authenticated by: Bernardino Whalen MD. Ordering:MARJORIE So MD
[2022-11-20 10:39] VITALS: BP 134/80; PULSE 76; RESP 18; TEMP 37.4; O2SAT 97
--- NOTE | 2022-11-20 10:41 | DI.VRAD_ITS ---
PROCEDURE INFORMATION: Exam: US Duplex Lower Extremity Veins, Bilateral Exam date and time: 11/20/2022 9:01 AM Age: 62 years old Clinical indication: Pain; Leg, upper and leg, lower; Bilateral TECHNIQUE: Imaging protocol: Real-time duplex ultrasound of the bilateral extremities with 2-D alfred scale, color Doppler flow and spectral waveform analysis including responses to compression and other maneuvers (when performed) with image documentation. Complete exam focused on the lower extremity veins. COMPARISON: CT ABDOMEN PELVIS W 01/25/2022 3:50 PM FINDINGS: Right deep veins: Unremarkable. The common femoral, femoral, proximal profunda femoral and popliteal veins are patent without thrombus. Normal Doppler waveforms. Normal compressibility and/or augmentation response. Right superficial veins: Saphenofemoral junction is patent without thrombus. Left deep veins: Unremarkable. The common femoral, femoral, proximal profunda femoral and popliteal veins are patent without thrombus. Normal Doppler waveforms. Normal compressibility and/or augmentation response. Left superficial veins: Saphenofemoral junction is patent without thrombus. Soft tissues: Unremarkable. IMPRESSION: No evidence of deep vein thrombosis. Dictated and Authenticated by: Bernardino Whalen MD. Ordering:MARJORIE So MD
== END 2022-11-20 10:39 | disposition home or self-care (01) ==
PROVIDERS: Emergency Provider Emergency Medicine; PCP Nurse Practitioner Family
DX: R22.43 Localized swelling, mass and lump, lower limb, bilateral (principal); R11.2 Nausea with vomiting, unspecified; R20.2 Paresthesia of skin; D72.829 Elevated white blood cell count, unspecified; C34.91 Malignant neoplasm of unspecified part of right bronchus or lung; Z92.21 Personal history of antineoplastic chemotherapy; Z87.891 Personal history of nicotine dependence; Z79.899 Other long term (current) drug therapy
CPT/HCPCS: 36415; 75635; 80048; 99285; 85025; 85379; 85610; 93970; 99284; J3490

== ENCOUNTER 2022-12-14 11:07 | Inpatient (IN) | payer MEDICARE, MEDICAID, SELFPAY ==
[2022-12-14] VITALS (145 sets, daily range): BP systolic 107–171; BP diastolic 62–86; PULSE 65–99; RESP 13–32; TEMP 36.5–36.7; O2SAT 93–100
[2022-12-14 11:58] LABS: Abs Immature Grans 0.05 10^3/uL (0.0-0.06); Absolute Basophil Count 0.07 10^3/uL (0.0-0.2); Absolute Monocyte Count 1.23 10^3/uL (0.1-0.8); Basophils % 0.5; Eosinophils % 0.1; HCT 50.7 % (36.0-46.0); HGB 17.8 g/dL (11.2-15.7); Immature Grans % 0.3; Lymphocytes % 22.9; MCH 32.7 pg (27.0-33.0); MCHC 35.1 % (32.0-36.0); MCV 93 fL (80-95); MPV 8.8 fL (8.0-11.0); Monocytes % 8.4; Neutrophils % 67.8; Platelet Count 405 10^3/uL (130-400); RBC 5.45 10^6/uL (3.93-5.22); RDW 12.5 % (11.7-14.6); RDW-SD 42.9 fL; WBC 14.65 10^3/uL (4.4-10.8)
[2022-12-14 11:59] LABS: Absolute Eosinophil Count 0.01 10^3/uL (0.0-0.7); Absolute Lymphocyte Count 3.35 10^3/uL (1.2-3.4); Absolute Neutrophil Count 9.93 10^3/uL (1.2-6.7)
--- NOTE | 2022-12-14 12:15 | DI.CT_ITS ---
Exam(s) CT HEAD WO EXAM: CT HEAD WO CLINICAL HISTORY: new seizure, non small cell lung ca. TECHNIQUE: Imaging Protocol: Axial computed tomography images with coronal and sagittal reformatted images were created and reviewed COMPARISON: CT HEAD WITH/WITHOUT CONTRAST from 12/20/2011 MR MR BRAIN WO/W from 01/20/2022 FINDINGS: Ventricles and Extra axial spaces: Normal in size and morphology for the patient's age. Hemorrhage: None. Cerebral parenchyma: No evidence of acute infarct or mass. Midline shift: None. Brainstem/Cerebellum: Normal. Calvarium: Normal. Visualized Paranasal sinuses/Mastoids: Clear. Soft Tissues: Unremarkable. IMPRESSION: No acute intracranial process. RADIATION DOSE DELIVERED: 692.2mGy.cm Total DLP DATA REPOSITORY: All CT scans at this facility are submitted to the National Radiology Data Registry (NRDR) Dose Index Registry (DIR) with the [employer] (ACR). RADIATION OPTIMIZATION: All CT scans at this facility use at least one of these dose optimization te chniques: automated exposure control; mA and/or kV adjustment per patient size (includes targeted exa ms where dose is matched to clinical indication); or iterative reconstruction.
--- NOTE | 2022-12-14 12:17 | W.ED.GENAD ---
Discharge Plan Disposition Patient Disposition: Admit to [facility] Condition: Serious Discharge Details Chief Complaint: PsychEval Clinical Impression: Seizure-like activity, Anxiety, Depression Primary Care Provider: Carolyne Werner ED Provider: Danny Nuñez [place] Meds and New Rx's Prescriptions: No Action naloxone [Narcan] 4 mg/actuation spray,non-aerosol 4 mg intranasal DIRECTED PRN Rx Instructions: spray 1 dose into ONE nostril; alternate nostrils w each dose until help arrives lamotrigine [Lamictal] 150 mg tablet 300 mg PO DAILY docusate calcium 240 mg capsule 240 mg PO BID methadone 5 mg tablet 5 mg PO TID lactulose 10 gram/15 mL (15 mL) solution 15 ml PO .COMPLEX Rx Instructions: Take 1-2 tsp QAM to prevent constipation. omeprazole 40 mg capsule,delayed release(DR/EC) 40 mg PO DAILY trazodone 50 mg tablet 200 mg PO QHS PRN naproxen sodium 550 mg tablet 550 mg PO BID PRN Tagrisso 80 mg tablet 40 mg PO DAILY duloxetine 60 mg capsule,delayed release(DR/EC) 120 mg PO DAILY lorazepam [Ativan] 0.5 mg tablet 2.5 mg PO TID PRN lidocaine 4 % adhesive patch,medicated 1 patch topical DAILY PRN morphine 30 mg capsule,extend.release pellets 30 mg PO Q12H Myrbetriq 25 mg tablet extended release 24 hr 25 mg PO DAILY Qty: 90 0RF ondansetron 4 mg tablet,disintegrating 4 mg PO Q8H Aimovig Autoinjector 140 mg/mL auto-injector 140 mg subcut QMONTH Qty: 1 3RF hydroxyzine HCl 25 mg tablet 25 mg PO Q6H PRN PRN (Reason: headaches) Qty: 60 3RF aripiprazole 10 mg tablet 15 mg PO DAILY Patient Comments: TAKE ONE TABLET BY MOUTH EVERY DAY Myrbetriq 50 mg tablet extended release 24 hr 50 mg PO DAILY Patient Comments: TAKE 1 TABLET BY MOUTH ONCE DAILY oxycodone [OxyContin] 15 mg tablet,oral only,ext.rel.12 hr 15 mg PO Q12H PRN PRN Patient Comments: TAKE ONE TABLET BY MOUTH EVERY 12 HOURS Medical Decision Making 1225 --62-year-old female with multimedical problems including history of non-small cell lung cancer, bipolar disorder, anxiety disorder,, chronic pain, here with anxiety and depression. While I was examining the patient she had an episode where she suddenly stopped speaking, had blank stare for approximately 20 seconds and then had tonic clonic activity of her right upper extremity with rightward gaze and biting of her tongue. Symptoms lasted approximately 3 minutes. She returned to preictal state within a minute. She did not have recollection of event. Concern for seizure disorder. Patient notes she does not have prior diagnosis of seizure disorder. Consider metastatic disease. Plan to obtain CT of the head. 1235 --additional history obtained from the patient's PCP, Carolyne Werner, patient has history of PTSD, bipolar disorder, schizoaffective disorder, not being actively treated by change management specialist. Patient has history of non-small cell lung cancer status post resection and currently on chemotherapy and followed by oncology. Patient has severe DJD of the spine with recent PET scan negative for metastatic disease of the spine. Patient has no known seizure disorder. Patient has significant social barriers including living off grid. Hospice was ordered by PCP last week but unable to access the patient. There is an active palliative care consult. Patient apparently contacted PCP recently this week to request physician assisted suicide. PCP unsure if patient has decisional making capacity and if she would qualify for this. 1400 -- CT of the head was interpreted by radiology: No acute process. Labs reviewed and hypokalemia noted. I will give potassium chloride IV. 1425 --additional history obtained from the patient: She notes that she stopped taking prescribed benzodiazepine about 2 days ago. Consider benzodiazepine withdrawal seizures. Patient was reassessed and feeling better. I called hospitalist on-call, Dr. Lam, discussed ED presentation and course, she will accept the patient in admission. Cared transition at time of admission. Dr. Lam to follow-up on procalcitonin and VBG. Lab Data Lab results reviewed: Yes I reviewed the patient's lab results. Labs: Laboratory Tests Range/Units 12/14/22 12/14/22 12/14/22 11:55 11:55 11:55 WBC (4.4-10.8) 10^3/uL 14.65 H RBC (3.93-5.22) 10^6/uL 5.45 H Hgb (11.2-15.7) g/dL 17.8 H Hct (36.0-46.0) % 50.7 H MCV (80-95) fL 93 MCH (27.0-33.0) pg 32.7 MCHC (32.0-36.0) % 35.1 RDW (11.7-14.6) % 12.5 Plt Count (130-400) 10^3/uL 405 H MPV (8.0-11.0) fL 8.8 Immature Gran % 0.3 Neutrophils % 67.8 Lymphocytes % 22.9 Monocytes % 8.4 Eosinophils % 0.1 Basophils % 0.5 Nucleated RBC % (0.0-0.3) % 0.0 Absolute Neutrophils (1.2-6.7) 10^3/uL 9.93 H Absolute Lymphocytes (1.2-3.4) 10^3/uL 3.35 Absolute Monocytes (0.1-0.8) 10^3/uL 1.23 H Absolute Eosinophils (0.0-0.7) 10^3/uL 0.01 Absolute Basophils (0.0-0.2) 10^3/uL 0.07 Sodium (136-145) mmol/L 136 Potassium (3.5-5.1) mmol/L 2.9 L Chloride (98-107) mmol/L 95 L Carbon Dioxide (21.0-32.0) mmol/L 25.8 Anion Gap (3-11) mmol/L 15.2 H BUN (7-18) mg/dL 23 H Creatinine (0.55-1.02) mg/dL 1.4 H Est GFR (CKD-EPI 2020) (mL/min/1.73m2) 42.54 Glucose (74-106) mg/dL 120 H Calcium (8.5-10.1) mg/dL 10.1 Total Bilirubin (0.2-1.0) mg/dL 1.2 H AST (15-37) U/L 39 H ALT (14-59) U/L 31 Alkaline Phosphatase (46-116) U/L 132 H Total Protein (6.4-8.2) g/dL 9.6 H Albumin (3.4-5.0) g/dL 4.7 TSH (0.36-3.74) uIU/mL 1.87 Salicylates (<2.8) mg/dL 5.0 Acetaminophen (10-30) ug/mL < 2 HPI General Mode of arrival: EMS. Date/Time Provider Initiated Documentation: 12/14/22 11:08. Limitations to Documentation: altered mental status. Information obtained by: patient. HPI Narrative: 62-year-old female with multiple medical problems including history of non-small cell lung cancer, fibromyalgia, chronic pain, low back pain, anxiety disorder, bipolar disorder, here with severe anxiety and depression. Patient notes she stopped eating and stopped taking her medications recently. She notes she does not wish to live anymore as result of her chronic illness and has plans for state assisted suicide. Patient having intermittent episodes where she is unable to respond verbally to questions and seems to have blank stare. These episodes seem to be lasting seconds to minutes. Related Data Home Medications Medication Instructions Recorded Confirmed docusate calcium 240 mg capsule 240 mg PO BID 01/28/22 11/20/22 lactulose 10 gram/15 mL (15 mL) 15 ml PO .COMPLEX 01/28/22 06/16/22 oral solution lamotrigine 150 mg tablet 300 mg PO DAILY 01/28/22 11/20/22 (Lamictal) methadone 5 mg tablet 5 mg PO TID 01/28/22 06/16/22 naloxone 4 mg/actuation nasal 4 mg intranasal DIRECTED PRN 01/28/22 11/20/22 spray (Narcan) naproxen sodium 550 mg tablet 550 mg PO BID PRN 01/28/22 11/20/22 omeprazole 40 mg capsule,delayed 40 mg PO DAILY 01/28/22 11/20/22 release trazodone 50 mg tablet 200 mg PO QHS PRN 01/28/22 11/20/22 ondansetron 4 mg disintegrating 4 mg PO Q8H 02/12/22 11/20/22 tablet osimertinib 80 mg tablet (Tagrisso) 40 mg PO DAILY 02/25/22 11/20/22 erenumab-aooe 140 mg/mL 140 mg subcut QMONTH #1 mL 05/06/22 06/16/22 subcutaneous auto-injector (Aimovig Autoinjector) hydroxyzine HCl 25 mg tablet 25 mg PO Q6H PRN PRN headaches #60 07/05/22 tabs duloxetine 60 mg capsule,delayed 120 mg PO DAILY 10/18/22 11/20/22 release lidocaine 4 % topical patch 1 patch topical DAILY PRN 10/18/22 11/20/22 lorazepam 0.5 mg tablet (Ativan) 2.5 mg PO TID PRN 10/18/22 11/20/22 morphine 30 mg capsule,extended 30 mg PO Q12H 10/18/22 release pellets mirabegron 25 mg tablet,extended 25 mg PO DAILY #90 tabs 10/28/22 10/28/22 release 24 hr (Myrbetriq) aripiprazole 10 mg tablet 15 mg PO DAILY 11/20/22 11/20/22 mirabegron 50 mg tablet,extended 50 mg PO DAILY 11/20/22 11/20/22 release 24 hr (Myrbetriq) oxycodone 15 mg tablet,crush 15 mg PO Q12H PRN PRN 11/20/22 11/20/22 resistant,extended release 12 hr (OxyContin) Previous Rx's Medication Instructions Recorded erenumab-aooe 140 mg/mL 140 mg subcut QMONTH #1 mL 05/06/22 subcutaneous auto-injector (Aimovig Autoinjector) hydroxyzine HCl 25 mg tablet 25 mg PO Q6H PRN PRN headaches #60 07/05/22 tabs mirabegron 25 mg tablet,extended 25 mg PO DAILY #90 tabs 10/28/22 release 24 hr (Myrbetriq) Allergies Allergy/AdvReac Type Severity Reaction Status Date / Time clonazepam Allergy Intermediate Verified 12/14/22 11:31 fentanyl [From Duragesic] Allergy Intermediate Verified 12/14/22 11:31 gabapentin [From Neurontin] Allergy Intermediate Verified 12/14/22 11:31 mirtazapine Allergy Intermediate Verified 12/14/22 11:31 nicotine [From Nicoderm CQ] Allergy Intermediate Verified 12/14/22 11:31 varenicline [From Chantix] Allergy Intermediate Verified 12/14/22 11:31 Benzodiazepines Allergy Unknown Verified 12/14/22 11:31 steroids Allergy Mild Uncoded 12/14/22 11:31 enviormental Allergy Unknown Uncoded 12/14/22 11:31 General Stated Complaint: PsychEval OUMAR: 2 Review of Systems Unobtainable due to mental condition Cardiovascular Cardiovascular: Denies chest pain and Reports dyspnea (chronic) Respiratory Respiratory: Reports dyspnea (chronic) Psychiatric Psychiatric: Reports anxiety, Reports depression, Reports hopelessness and Reports anhedonia PFSH All Active Problems (Updated 12/14/22 @ 14:28 by Danny Nuñez MD) Numbness and tingling of both legs (Acute) Seizure-like activity (Acute) Anxiety (Chronic) Depression (Chronic) Globus sensation (Acute) Adenocarcinoma of right lung (Acute) Posttraumatic stress disorder (Acute) Anxiety and depression (Acute) History of tobacco abuse (Acute) Chronic pain syndrome (Chronic) Stage 4 malignant neoplasm of lung (Acute) Basal cell carcinoma (BCC) of skin of face (Acute) New persistent daily headache (Acute) Dysuria (Acute) Localized swelling of both lower legs (Acute) Occipital headache (Acute) H/O urinary frequency (Acute) Medical History Abnormal findings on diagnostic imaging of abdomen Adenocarcinoma, metastatic Anxiety disorder Chronic pain Constipation Creatinine elevation Fibromyalgia Headache High risk medication use History of depression Hot flashes Insect bite Insomnia Leg edema Low blood pressure Medication monitoring encounter Nausea Night sweats Non-small cell lung cancer Skin lesion of face Smoker Vaginal atrophy Vitamin B12 deficiency anemia, unspecified Surgical History H/O elbow surgery H/O splenectomy H/O total hysterectomy History of tonsillectomy Status post lobectomy of lung Social History Smoking/Tobacco Use Status: Current every day Tobacco Type: cigarettes Smoking risk assessment performed?: Yes Alcohol Intake: never Drug use: Daily Substance use type: crack/cocaine Housing: house Do you feel safe at home: Yes Do you feel safe in your relationship?: Yes Exam Const General: cooperative Nutritional Appearance: underweight Orientation: alert and awake [facility] Head: normocephalic and atraumatic Mouth: moist mucous membranes Eyes Conjunctivae: normal conjunctivae Sclera: normal sclerae Resp Auscultation: clear to auscultation bilaterally, no rales, no rhonchi and no wheezes Cardio Rate: regular rate and not tachycardic Rhythm: regular rhythm GI Palpation: soft, not firm, no guarding, no masses, not rigid and nontender Skin General skin exam: no rashes or lesions noted Neuro General: patient alert, patient awake and tone normal Speech: speech normal Motor: strength 5/5 throughout Sensory Exam: no sensory deficits noted Extrem General: no edema Psych Appearance: disheveled Mental Status: other (depressed) Mood: other (depressed) Affect: anxious affect Attitude: cooperative Thought Process: tangential Thought Content: suicidality Course Vital Signs Vital signs: Vital Signs Temperature 36.5 C 12/14/22 11:06 Pulse 65 12/14/22 11:06 Respiratory Rate 20 12/14/22 11:06 Blood Pressure 124/85 12/14/22 11:06 Pulse Oximetry 98 12/14/22 11:06 Temperature 36.5 C 12/14/22 11:06 Temperature Source Skin 12/14/22 11:06 Pulse 65 12/14/22 11:06 Respiratory Rate 20 12/14/22 11:06 Blood Pressure 124/85 12/14/22 11:06 Blood Pressure Position Sitting 12/14/22 11:06 Pulse Oximetry 98 12/14/22 11:06 Oxygen Delivery Method Room Air 12/14/22 11:06 Oxygen Flow Rate 0 12/14/22 11:06 Lab/Test Results Lab/Test Results: Laboratory Tests Range/Units 12/14/22 11:55 WBC (4.4-10.8) 10^3/uL 14.65 H RBC (3.93-5.22) 10^6/uL 5.45 H Hgb (11.2-15.7) g/dL 17.8 H Hct (36.0-46.0) % 50.7 H MCV (80-95) fL 93 MCH (27.0-33.0) pg 32.7 MCHC (32.0-36.0) % 35.1 RDW (11.7-14.6) % 12.5 Plt Count (130-400) 10^3/uL 405 H MPV (8.0-11.0) fL 8.8 Immature Gran % 0.3 Neutrophils % 67.8 Lymphocytes % 22.9 Monocytes % 8.4 Eosinophils % 0.1 Basophils % 0.5 Nucleated RBC % (0.0-0.3) % 0.0 Absolute Neutrophils (1.2-6.7) 10^3/uL 9.93 H Absolute Lymphocytes (1.2-3.4) 10^3/uL 3.35 Absolute Monocytes (0.1-0.8) 10^3/uL 1.23 H Absolute Eosinophils (0.0-0.7) 10^3/uL 0.01 Absolute Basophils (0.0-0.2) 10^3/uL 0.07
[2022-12-14] MEDS: LORazepam 2 MG/ML VIAL (12:20)
[2022-12-14 12:22] LABS: ALT 31 U/L (14-59); AST 39 U/L (15-37); Albumin 4.7 g/dL (3.4-5.0); Alkaline Phosphatase 132 U/L (46-116); Anion Gap 15.2 mmol/L (3-11); BUN 23 mg/dL (7-18); Bilirubin, Total 1.2 mg/dL (0.2-1.0); CO2 25.8 mmol/L (21.0-32.0); CREATININE 1.4 mg/dL (0.55-1.02); Calcium 10.1 mg/dL (8.5-10.1); Chloride 95 mmol/L (98-107); Estimated GFR 42.54 (mL/min/1.73m2); Glucose 120 mg/dL (74-106); Sodium 136 mmol/L (136-145); TSH (W/Ref FT4) 1.87 uIU/mL (0.36-3.74); Total Protein 9.6 g/dL (6.4-8.2)
[2022-12-14 12:25] LABS: Potassium 2.9 mmol/L (3.5-5.1)
[2022-12-14] MEDS: levETIRAcetam 1,000 MG in Normal Saline 100 ML 400 MG IVPB (12:26)
[2022-12-14 12:35] LABS: Acetaminophen < 2 ug/mL (10-30)
--- NOTE | 2022-12-14 12:59 | NUR.NOTE ---
Nursing Note: Assumed care of patient at this time. No nurse to nurse report received.
[2022-12-14] MEDS: POTASSIUM CHLORIDE 20 MEQ/100 ML BAG 50 MEQ IVPB (13:15)
[2022-12-14] MEDS: Normal Saline 1,000 ML 125 ML IV (13:15)
--- NOTE | 2022-12-14 13:29 | NUR.NOTE ---
Nursing Note: After speaking with [facility] RN, parts data writer was informed patient had attempted urine sample but had a bowel movement and sample was contaminated.
[2022-12-14 14:39] LABS: BE (Venous) 0 mmol/L (-2-3); HCO3 (Venous) 24 mmol/L (23-28); O2 Sat (Venous) 88 %; TCO2 (Venous) 20 mmol/L (24-29); pCO2 (Venous) 30 mmHg (41-51); pO2 (Venous) 51 mmHg
[2022-12-14 14:51] LABS: Lab Add On Test DONE
[2022-12-14 15:07] LABS: Magnesium 2.3 mg/dL (1.8-2.4)
--- NOTE | 2022-12-14 15:16 | NUR.NOTE ---
Nursing Note: As Juan Carlos from respitory therpy was speaking with the patient , she went non verable, and lips where quivering.
--- NOTE | 2022-12-14 15:26 | NUR.NOTE ---
Nursing Note: Report to COLOR FINISHER; pt going to room 219.
[2022-12-14 15:35] LABS: Procalcitonin < 0.1 ng/mL
--- NOTE | 2022-12-14 15:35 | NUR.NOTE ---
Nursing Note: Right before transport patient had another episode staring off with lips quivering. Able to follow commands when asked to blink eyes. Event lasted less than 1 minute. Ativan pulled by health underwriter but patient was alert and oriented x4 upon RN return to room so medication was held. EMBOSSING TOOL SETTER notified about this event upon transport up to the unit. Care transferred at 1535 to ICU.
--- NOTE | 2022-12-14 15:53 | HPE_ITS ---
Date of service: 12/14/22 Time of Service: 15:53 Assessment and Plan Assessment and plan (1) Seizure-like activity: Status: Acute Assessment and plan: In setting of stopping lamotrigine and lorazepam as outpatient. Resume lamotrigine. Await EEG. MRI brain is planned for tomorrow. Has prn IV lorazepam written. Await neurology recommendations. (2) Adenocarcinoma of right lung: Status: Chronic Assessment and plan: Back pain is not related to this - back did not light up on PET CT. Palliative care is consulted; however, the result of the last PET CT was essentially negative. (3) Bipolar 1 disorder: Status: Chronic Assessment and plan: The patient appears decompensated. She is noncompliant with her therapy. Lamotrigine is being resumed. Mental health is consulted and I suspect that she will require an inpatient psychiatric stabilization at the time of discharge. We can also attempt to get in touch with her psychiatrist. (4) Suicidal ideation: Status: Acute Assessment and plan: As above The patient was planning to pursue Act 39, but I think this is related to her undertreated depression. Will need a mental health evaluation. (5) Dehydration: Status: Acute Assessment and plan: Hydrate IV. (6) Leucocytosis: Status: Acute Assessment and plan: In setting of seizure like activity, dehydration. Procalcitonin negative. OBtain UA. I am not starting abx at this time. (7) Hypokalemia: Status: Acute Assessment and plan: Replete and recheck in am (8) Atypical chest pain: Status: Acute Assessment and plan: Trend troponins, obtain EKG, cardiac monitoring (9) DVT prophylaxis: Status: Acute Assessment and plan: SCDs Avoid chemical DVT ppx until MRI brain is obtained to ensure there is no brain lesion. (10) Discharge planning issues: Status: Acute Assessment and plan: Full code Await palliative care consult. Admit to the ICU. Discussed with Dr Guerra. Total Critical Care Time 45 minutes. History of Present Illness History of Present Illness Chief Complaint: 911 called by [employer] rative: Ms Robert is a 62 year old female with PMHx of metastatic adenocarcinoma of the lung s/p resection and who is supposed to be on treatment with osimertinib, last PET scan negative, Bipolar d/o on lamictal, trazodone, cymbalta, prn lorazepam, chronic back pain (without corresponding signal on PET scan), fibromyalgia on methadone, who lives alone off grid in a house without electricity, sanitation, or running water, who was brought to [facility] ED today by ambulance after the [employer] had called 911. The patient had contacted [email or web address] today because she had forgotten but then had suddenly remembered that she had ability to have heat at home and she wanted to be warm and comfortable in preparation to at home on afternoon. The patient had been talking to the family about dying with dignity and had been referred to home hospice, who had been unable to meet with her as outpatient, to have this looked at. The patient stopped taking her medications sometime in the last 1-2 weeks - when, exactly, is not clear. Neither the patient nor the son were able to provide that history. The patient states her PO intake had been poor. She blames it on her teeth and also difficulty with walking - she has been generally weak and she has numbness in her feet. She also states that there is a person who provides her with something to drink, but today he hadn't. She stopped eating and drinking about two days ago. She denies pain anywhere but her back, denies headache, dizziness, CP, nausea, abdominal pain. While in the ER, she had an episode of staring into space which was followed by tongue biting and clonic activity in her RUE. She was loaded with Keppra. The patient has had several of these episodes in the ICU as well, 3 of them witnessed by me, where the patient looks to the right, unable to speak/answer questions, which was followed by twitching of the left side of her face and stuttering when she did come back to it before she could speak fluently again. I did not observe UE tonic clonic activity. She also reported pain in her R chest due to natural bone decay. Review of Systems All systems reviewed & are unremarkable except as noted in HPI and below PFSH All Active Problems (Updated 12/14/22 @ 17:22 by Marissa Lam MD) Discharge planning issues (Acute) DVT prophylaxis (Acute) Atypical chest pain (Acute) Hypokalemia (Acute) Leucocytosis (Acute) Dehydration (Acute) Suicidal ideation (Acute) Bipolar 1 disorder (Chronic) Numbness and tingling of both legs (Acute) Seizure-like activity (Acute) Anxiety (Chronic) Depression (Chronic) Globus sensation (Acute) Adenocarcinoma of right lung (Chronic) Posttraumatic stress disorder (Acute) Anxiety and depression (Acute) History of tobacco abuse (Acute) Chronic pain syndrome (Chronic) Stage 4 malignant neoplasm of lung (Acute) Basal cell carcinoma (BCC) of skin of face (Acute) New persistent daily headache (Acute) Dysuria (Acute) Localized swelling of both lower legs (Acute) Occipital headache (Acute) H/O urinary frequency (Acute) Medical History Abnormal findings on diagnostic imaging of abdomen Adenocarcinoma, metastatic Anxiety disorder Chronic pain Constipation Creatinine elevation Fibromyalgia Headache High risk medication use History of depression Hot flashes Insect bite Insomnia Leg edema Low blood pressure Medication monitoring encounter Nausea Night sweats Non-small cell lung cancer Skin lesion of face Smoker Vaginal atrophy Vitamin B12 deficiency anemia, unspecified Surgical History H/O elbow surgery H/O splenectomy H/O total hysterectomy History of tonsillectomy Status post lobectomy of lung Social History Smoking/Tobacco Use Status: Current-Occasional Tobacco Type: cigarettes Smoking risk assessment performed?: Yes Alcohol Intake: never Drug use: Daily Substance use type: crack/cocaine Housing: house Do you feel safe at home: Yes Do you feel safe in your relationship?: Yes Meds Allergies and Home Medications Allergies Allergy/AdvReac Type Severity Reaction Status Date / Time clonazepam Allergy Intermediate Verified 12/14/22 11:31 fentanyl [From Duragesic] Allergy Intermediate Verified 12/14/22 11:31 gabapentin [From Neurontin] Allergy Intermediate Verified 12/14/22 11:31 mirtazapine Allergy Intermediate Verified 12/14/22 11:31 nicotine [From Nicoderm CQ] Allergy Intermediate Verified 12/14/22 11:31 varenicline [From Chantix] Allergy Intermediate Verified 12/14/22 11:31 Benzodiazepines Allergy Unknown Verified 12/14/22 11:31 steroids Allergy Mild Uncoded 12/14/22 11:31 enviormental Allergy Unknown Uncoded 12/14/22 11:31 Home Medications Medication Instructions Recorded Confirmed Type docusate calcium 240 mg capsule 240 mg PO BID 01/28/22 11/20/22 History lactulose 10 gram/15 mL (15 mL) 15 ml PO .COMPLEX 01/28/22 06/16/22 History oral solution lamotrigine 150 mg tablet 300 mg PO DAILY 01/28/22 11/20/22 History (Lamictal) methadone 5 mg tablet 5 mg PO TID 01/28/22 06/16/22 History naloxone 4 mg/actuation nasal 4 mg intranasal DIRECTED PRN 01/28/22 11/20/22 History spray (Narcan) naproxen sodium 550 mg tablet 550 mg PO BID PRN 01/28/22 11/20/22 History omeprazole 40 mg capsule,delayed 40 mg PO DAILY 01/28/22 11/20/22 History release trazodone 50 mg tablet 200 mg PO QHS PRN 01/28/22 11/20/22 History ondansetron 4 mg disintegrating 4 mg PO Q8H 02/12/22 12/14/22 History tablet osimertinib 80 mg tablet (Tagrisso) 40 mg PO DAILY 02/25/22 11/20/22 History erenumab-aooe 140 mg/mL 140 mg subcut QMONTH #1 mL 05/06/22 06/16/22 Rx subcutaneous auto-injector (Aimovig Autoinjector) hydroxyzine HCl 25 mg tablet 25 mg PO Q6H PRN PRN headaches #60 07/05/22 Rx tabs duloxetine 60 mg capsule,delayed 120 mg PO DAILY 10/18/22 11/20/22 History release lidocaine 4 % topical patch 1 patch topical DAILY PRN 10/18/22 11/20/22 History lorazepam 0.5 mg tablet (Ativan) 2.5 mg PO TID PRN 10/18/22 11/20/22 History morphine 30 mg capsule,extended 30 mg PO Q12H 10/18/22 History release pellets mirabegron 25 mg tablet,extended 25 mg PO DAILY #90 tabs 10/28/22 10/28/22 Rx release 24 hr (Myrbetriq) aripiprazole 10 mg tablet 15 mg PO DAILY 11/20/22 11/20/22 History mirabegron 50 mg tablet,extended 50 mg PO DAILY 11/20/22 11/20/22 History release 24 hr (Myrbetriq) oxycodone 15 mg tablet,crush 15 mg PO Q12H PRN PRN 11/20/22 11/20/22 History resistant,extended release 12 hr (OxyContin) Exam Narrative Exam Narrative: General: middle-aged cachectic female who is having somewhat tangential speech, though she does answer every question, mildly dyspneic, on RA, being set up for an EEG, A&Ox3, forgetful Neurological: A&Ox3, forgetful, no focal deficits, having episodes of staring into space followed by facial twitching Psychiatric: Expresses a strong desire to , being comfortable with , flat/sad affect, somewhat tangential speech Skin: Visible skin dry, intact HEENT: Atraumatic, normocephalic, EOMI, dry MM, no submandibular or cervical lymphadenopathy, goiter or JVD Cardiovascular: RRR, no m/r/g Lungs: CTAB anteriorly Gastrointestinal: soft, nontender, nondistended Genitourinary: deferred Extremities: no edema BLEs, moving all 4 extremities, 5/5 strength B Results Imaging Additional studies: CT head w/o contrast: No acute intracranial process. EEG: currently in process MRI brain: to be done tomorrow am EKG pending Labs 12/14/22 11:55 12/14/22 11:55 Labs: Laboratory Results - last 24 hr 12/14/22 12/14/22 12/14/22 11:55 11:55 11:55 WBC 14.65 H RBC 5.45 H Hgb 17.8 H Hct 50.7 H MCV 93 MCH 32.7 MCHC 35.1 RDW 12.5 Plt Count 405 H MPV 8.8 Immature Gran % 0.3 Neutrophils % 67.8 Lymphocytes % 22.9 Monocytes % 8.4 Eosinophils % 0.1 Basophils % 0.5 Nucleated RBC % 0.0 Absolute Neutrophils 9.93 H Absolute Lymphocytes 3.35 Absolute Monocytes 1.23 H Absolute Eosinophils 0.01 Absolute Basophils 0.07 VBG pH VBG pCO2 VBG pO2 VBG HCO3 VBG Total CO2 VBG O2 Saturation VBG Base Excess Sodium 136 Potassium 2.9 L Chloride 95 L Carbon Dioxide 25.8 Anion Gap 15.2 H BUN 23 H Creatinine 1.4 H Est GFR (CKD-EPI 2020) 42.54 Glucose 120 H Calcium 10.1 Magnesium Total Bilirubin 1.2 H AST 39 H ALT 31 Alkaline Phosphatase 132 H Total Protein 9.6 H Albumin 4.7 Procalcitonin TSH 1.87 Salicylates 5.0 Acetaminophen < 2 Add-On Test Request 12/14/22 12/14/22 12/14/22 11:55 11:55 11:55 WBC RBC Hgb Hct MCV MCH MCHC RDW Plt Count MPV Immature Gran % Neutrophils % Lymphocytes % Monocytes % Eosinophils % Basophils % Nucleated RBC % Absolute Neutrophils Absolute Lymphocytes Absolute Monocytes Absolute Eosinophils Absolute Basophils VBG pH VBG pCO2 VBG pO2 VBG HCO3 VBG Total CO2 VBG O2 Saturation VBG Base Excess Sodium Potassium Chloride Carbon Dioxide Anion Gap BUN Creatinine Est GFR (CKD-EPI 2020) Glucose Calcium Magnesium 2.3 Total Bilirubin AST ALT Alkaline Phosphatase Total Protein Albumin Procalcitonin < 0.1 TSH Salicylates Acetaminophen Add-On Test Request DONE 12/14/22 14:34 WBC RBC Hgb Hct MCV MCH MCHC RDW Plt Count MPV Immature Gran % Neutrophils % Lymphocytes % Monocytes % Eosinophils % Basophils % Nucleated RBC % Absolute Neutrophils Absolute Lymphocytes Absolute Monocytes Absolute Eosinophils Absolute Basophils VBG pH 7.50 H VBG pCO2 30 L VBG pO2 51 VBG HCO3 24 VBG Total CO2 20 L VBG O2 Saturation 88 VBG Base Excess 0 Sodium Potassium Chloride Carbon Dioxide Anion Gap BUN Creatinine Est GFR (CKD-EPI 2020) Glucose Calcium Magnesium Total Bilirubin AST ALT Alkaline Phosphatase Total Protein Albumin Procalcitonin TSH Salicylates Acetaminophen Add-On Test Request Last Vital Signs Temp 36.5 C 12/14/22 11:06 Pulse 75 12/14/22 15:01 Resp 20 12/14/22 15:11 BP 118/62 12/14/22 15:01 Pulse Ox 97 12/14/22 15:11 Time Spent Time spent with Patient: 55-74 minutes Time was spent: preparing to see the patient(eg.review tests), obtaining and/or reviewing separately otained hiistory, ordering medications,tests, procedures, referring, communicating with other health med care manager, indepentently interpreting results, counseling the patient and care coordination
--- NOTE | 2022-12-14 16:19 | NCONE_ITS ---
Date of service: 12/14/22 Time of Service: 16:19 Assessment and Plan Assessment and plan (1) Nonspecific paroxysmal spell: Status: Acute Assessment and plan: Ms. Robert presents with mental health crisis and suicidal ideation with plan, witnessed to have periods of unresponsiveness with arm and facial tremors in the setting of medication cessation including lamtorigine and lorazepam and thus concerning for withdrawal seizures. However, event captured on EEG and was not epileptic in nature. Thus, events sound like they may be behavioral and related to poor mood control at present. She has been loaded with LTG 300mg now and will continue 300mg daily which will hopefully treat mood and prevent any possible withdrawal seizures. Continue mental health care as per primary team. Please call with any further questions or concerns. History of Present Illness Narrative: Handedness: right. HPI: Ms. Robert is a 62 year-old metastatic adenocarcinoma of the lung s/p resection and who is supposed to be on treatment with osimertinib, last PET scan negative,? Bipolar and complicated mood disorder, chronic back pain and fibromyalgia on methadone and morphine, and migraine headaches. She lives alone off grid in a house without running water, but notes that she now has electricity. Ms. Robert presented to the ER today with increased depression and anxiety with plans to end her life on 12/17/22 and that her cat will with her. She has a fantasy that her son will be at her bedside while she dies and that her Daughter in law will be behind him with her hand on his shoulder while she dies, giving him the support he will need when she passes. She reported that she has stop ped all of her medications 3 days ago (including lamotrigine 300mg daily along with lorazepam 2.5mg which she confirms she was taking TID, but had asked ehr PCP to increase but wouldn't because PCP was reportedly worried Kira would off herself with it) and has stopped eating as well. While in the ER, she had periods of unresponsiveness with ?left face and ?R arm twittering lasting a minute or so . After she will be stuttering and then returns to normal. She reports no prior history of seizures. She has a brain MRI in Jan 2022 without evidence of metastatic disease. She was given 1000mg levetiracetam in the ER. She reports meeting with palliative care/hospice through [facility] and was told that she needed to go straight to hospice and that she is expecting any day to get the call for with [facility]. States the cat may need to be put down before because the cat isn't sure if it wants to . She reports being told by nursing at [facility] that she can no longer get treatment for her lung cancer because she is on palliative care specifically. Also notes that she was told her lung cancer was going to kill her in 3-5 years and since it has been 4 years, she knows that she is dying. Notes that the lung cancer is fully set in. In review of [facility] notes, she called [facility] on 12/06/22 letting them know that she would like to be under palliative care due to increasing back pain and inability to live by herself off the grid any longer. She told them she wanted to stop all of her medications except osimertinib. Her most recent oncology visit was on 10/25/[address] España at [facility] - transferring from [facility] location. She was originally diagnosed with adenocarcinoma in 2018 involving the RUL/genevieve involvement s/p RUL lobectomy and chemotherapy. In 2020, she was found to have bilateral subcentimeter nodules upon [facility] biopsy confirmed recurrent adenocarcinoma. She has been on osimertinib since February 2022. She underwent MRI c-spine, t-spine, and l-spine imaging here on 09/09/22 which showed 2 small lesions in T11 and one small lesion in L1 vs L2 concerning for metastatic disease. However, most recent PET scan on 10/15/22 showed no tumor recurrence or active metastatic disease. So the spine findings previously are not thought to be metastatic after all. Work-up: -CTH w/o (12/14/22): no acute findings. I reviewed these images personally and this is my personal interpretation. -EEG (12/14/22): No epileptiform or focal findings. Spell captured of staring with unresponsiveness without associated EEG changes. Review of Systems All systems reviewed & are unremarkable except as noted in HPI and below PFSH All Active Problems (Updated 12/14/22 @ 20:38 by Gabby Rushing MD) Nonspecific paroxysmal spell (Acute) Discharge planning issues (Acute) DVT prophylaxis (Acute) Atypical chest pain (Acute) Hypokalemia (Acute) Leucocytosis (Acute) Dehydration (Acute) Suicidal ideation (Acute) Bipolar 1 disorder (Chronic) Numbness and tingling of both legs (Acute) Seizure-like activity (Acute) Anxiety (Chronic) Depression (Chronic) Globus sensation (Acute) Adenocarcinoma of right lung (Chronic) Posttraumatic stress disorder (Acute) Anxiety and depression (Acute) History of tobacco abuse (Acute) Chronic pain syndrome (Chronic) Stage 4 malignant neoplasm of lung (Acute) Basal cell carcinoma (BCC) of skin of face (Acute) New persistent daily headache (Acute) Dysuria (Acute) Localized swelling of both lower legs (Acute) Occipital headache (Acute) H/O urinary frequency (Acute) Medical History Abnormal findings on diagnostic imaging of abdomen Adenocarcinoma, metastatic Anxiety disorder Chronic pain Constipation Creatinine elevation Fibromyalgia Headache High risk medication use History of depression Hot flashes Insect bite Insomnia Leg edema Low blood pressure Medication monitoring encounter Nausea Night sweats Non-small cell lung cancer Skin lesion of face Smoker Vaginal atrophy Vitamin B12 deficiency anemia, unspecified Surgical History H/O elbow surgery H/O splenectomy H/O total hysterectomy History of tonsillectomy Status post lobectomy of lung Social History Smoking/Tobacco Use Status: Current-Occasional Tobacco Type: cigarettes Smoking risk assessment performed?: Yes Alcohol Intake: never Drug use: Daily Substance use type: crack/cocaine Housing: house Do you feel safe at home: Yes Do you feel safe in your relationship?: Yes Visit Medication and Allergies Active Medications Generic Name Dose Route Start Last Admin Trade Name Freq PRN Reason Stop Dose Admin Acetaminophen 0 mg 12/14/22 14:27 Acetaminophen 325 Mg Tab PO Q4H PRN PRN Al Hydrox/Mg Hydrox/Simethicone 30 ml 12/14/22 14:27 Mylanta Suspension 30 Ml Cup PO Q2H PRN PRN Albuterol Sulfate 2.5 mg 12/14/22 14:22 Albuterol 2.5 Mg/3 Ml Inh Soln Vial UPD Q2H PRN PRN Dimethicone/Zinc Oxide 0 gm 12/14/22 14:22 [place] Protect Cream 142 Gm Tube TP PRN PRN Docusate Sodium 100 mg 12/14/22 14:27 Docusate Sodium 100 Mg Cap PO TID PRN PRN Sodium Chloride 500 mls @ 0 mls/hr 12/14/22 12:16 Saline 500ml Bag IV PRN PRN As Directed Potassium Chloride/Sodium Chloride 1,000 mls @ 125 mls/hr 12/14/22 16:00 Kcl 40 Meq/Ns IV INFUSION NATE IV Miscellaneous Supplies 1 each 12/14/22 12:30 Iv Access IV DIRECTED NATE Levetiracetam 1,000 mg 12/14/22 20:00 Levetiracetam 250 Mg Tab PO BID NATE Lorazepam 1 mg 12/14/22 14:29 Lorazepam 2 Mg/Ml Vial IVP Q2H PRN PRN Magnesium Hydroxide 30 ml 12/14/22 14:27 Milk Of Magnesia 30 Ml Cup PO DAILY PRN PRN Sodium Chloride 0 ml 12/14/22 12:16 Normal Saline Flush 10 Ml Syr IVP PRN PRN Allergies clonazepam Allergy (Intermediate, Verified 12/14/22 11:31) fentanyl [From Duragesic] Allergy (Intermediate, Verified 12/14/22 11:31) gabapentin [From Neurontin] Allergy (Intermediate, Verified 12/14/22 11:31) mirtazapine Allergy (Intermediate, Verified 12/14/22 11:31) nicotine [From Nicoderm CQ] Allergy (Intermediate, Verified 12/14/22 11:31) varenicline [From Chantix] Allergy (Intermediate, Verified 12/14/22 11:31) Benzodiazepines Allergy (Unknown, Verified 12/14/22 11:31) steroids Allergy (Mild, Uncoded 12/14/22 11:31) enviormental Allergy (Unknown, Uncoded 12/14/22 11:31) Exam Narrative Exam Narrative: Physical Exam: Constitutional: Patient appears older than stated age, thin, mild distress Neck: Supple, no meningismus CV: RRR, S1, S2, no murmur Resp: CTAB Abd: Soft, nontender, nondistended Extrem: no clubbing, edema. Neuro: MS/Language/Speech: Alert, oriented, clear language (fluency and comprehension), no dysarthria CN: PERRL, EOMI, visual oliveira full, trigeminal sensation intact, no facial asymmetry, hearing intact, palate elevates symmetrically, tongue protrudes midline, SCM and trap strength intact - she has a bit of a lip tremor upper bilaterally, L>R when talking Motor: Normal bulk and tone. FMM intact, no pronator drift. 5/5 strength in bilateral upper extremities and 4/5 in bilateral lower extremities. Sensation: Intact to light touch throughout Reflexes: hyporeflexic throughout, downgoing toes Coordination: Finger to nose performed without dysmetria Gait: not seen Results Last Vital Signs Temp 97.7 F 12/14/22 11:06 Pulse 75 12/14/22 15:01 Resp 20 12/14/22 15:11 BP 118/62 12/14/22 15:01 Pulse Ox 97 12/14/22 15:11 Labs 12/14/22 11:55 12/14/22 11:55 Labs: Laboratory Results - last 24 hr 12/14/22 12/14/22 12/14/22 11:55 11:55 11:55 WBC 14.65 H RBC 5.45 H Hgb 17.8 H Hct 50.7 H MCV 93 MCH 32.7 MCHC 35.1 RDW 12.5 Plt Count 405 H MPV 8.8 Immature Gran % 0.3 Neutrophils % 67.8 Lymphocytes % 22.9 Monocytes % 8.4 Eosinophils % 0.1 Basophils % 0.5 Nucleated RBC % 0.0 Absolute Neutrophils 9.93 H Absolute Lymphocytes 3.35 Absolute Monocytes 1.23 H Absolute Eosinophils 0.01 Absolute Basophils 0.07 VBG pH VBG pCO2 VBG pO2 VBG HCO3 VBG Total CO2 VBG O2 Saturation VBG Base Excess Sodium 136 Potassium 2.9 L Chloride 95 L Carbon Dioxide 25.8 Anion Gap 15.2 H BUN 23 H Creatinine 1.4 H Est GFR (CKD-EPI 2020) 42.54 Glucose 120 H Calcium 10.1 Magnesium Total Bilirubin 1.2 H AST 39 H ALT 31 Alkaline Phosphatase 132 H Total Protein 9.6 H Albumin 4.7 Procalcitonin TSH 1.87 Salicylates 5.0 Acetaminophen < 2 Add-On Test Request 12/14/22 12/14/22 12/14/22 11:55 11:55 11:55 WBC RBC Hgb Hct MCV MCH MCHC RDW Plt Count MPV Immature Gran % Neutrophils % Lymphocytes % Monocytes % Eosinophils % Basophils % Nucleated RBC % Absolute Neutrophils Absolute Lymphocytes Absolute Monocytes Absolute Eosinophils Absolute Basophils VBG pH VBG pCO2 VBG pO2 VBG HCO3 VBG Total CO2 VBG O2 Saturation VBG Base Excess Sodium Potassium Chloride Carbon Dioxide Anion Gap BUN Creatinine Est GFR (CKD-EPI 2020) Glucose Calcium Magnesium 2.3 Total Bilirubin AST ALT Alkaline Phosphatase Total Protein Albumin Procalcitonin < 0.1 TSH Salicylates Acetaminophen Add-On Test Request DONE 12/14/22 14:34 WBC RBC Hgb Hct MCV MCH MCHC RDW Plt Count MPV Immature Gran % Neutrophils % Lymphocytes % Monocytes % Eosinophils % Basophils % Nucleated RBC % Absolute Neutrophils Absolute Lymphocytes Absolute Monocytes Absolute Eosinophils Absolute Basophils VBG pH 7.50 H VBG pCO2 30 L VBG pO2 51 VBG HCO3 24 VBG Total CO2 20 L VBG O2 Saturation 88 VBG Base Excess 0 Sodium Potassium Chloride Carbon Dioxide Anion Gap BUN Creatinine Est GFR (CKD-EPI 2020) Glucose Calcium Magnesium Total Bilirubin AST ALT Alkaline Phosphatase Total Protein Albumin Procalcitonin TSH Salicylates Acetaminophen Add-On Test Request
[2022-12-14] MEDS: POTASSIUM CHLORIDE/0.9% NACL 1,000 ML 125 MEQ IV (16:34)
--- NOTE | 2022-12-14 16:45 | RT.EKG_ITS ---
APPROVED REPORT Exam: Resting ECG Reason for Exam: chest pain Patient Location: I HR:73 bpm ECG Measurements Heart Rate 73 AXIS MT 149 P 95 QRSd 97 QRS 82 QT 404 T 60 QTc 446 Conclusion Sinus rhythm...normal P axis, V-rate 50- 99 Left atrial enlargement...P, P'>60mS, <-0.15mV V1 Left ventricular hypertrophy...multiple LVH criteria
--- NOTE | 2022-12-14 17:24 | NUR.NOTE ---
Pt Son calls. States pt has been saying I only have a month to live to her son and other friends and family. Son states he and pt had scheduled appointment to get a POA notarized , pt was aware of plan, Pt doesnt want to in hospital Son states no family can take her in at this time. Warren (son) Yesica [phone] , Channing states contact at hospice is Ali @ [phone] Note:
[2022-12-14] MEDS: lamoTRIgine 100 MG TAB 300 MG PO (17:35)
--- NOTE | 2022-12-14 17:59 | PDOC.EEG ---
Neurology EEG EEG: [facility] Department of Neurology INPATIENT EEG REPORT Date of Recordin12/14/22 Interpreting Physician: Dr. Gabby Rushing Reason for study: Ms. Robert is a 62 year-old woman admitted with SI but also periods of speech arrest and facial and arm shaking concerning for seizures. She reportedly stopped her home medications including lamotrigine 300mg daily and lorazapam 2.5mg TID 3 days ago. She was given 1000mg leveitracetam earlier in the ER. Current Medications: Current Medications Acetaminophen (Acetaminophen 325 Mg Tab) 0 mg PO Q4H PRN PRN Al Hydrox/Mg Hydrox/Simethicone (Mylanta Suspension 30 Ml Cup) 30 ml PO Q2H PRN PRN Albuterol Sulfate (Albuterol 2.5 Mg/3 Ml Inh Soln Vial) 2.5 mg UPD Q2H PRN PRN Dimethicone/Zinc Oxide ([place] Protect Cream 142 Gm Tube) 0 gm TP PRN PRN Docusate Sodium (Docusate Sodium 100 Mg Cap) 100 mg PO TID PRN PRN Sodium Chloride (Saline 500ml Bag) 500 mls @ 0 mls/hr IV PRN PRN Potassium Chloride/Sodium Chloride (Kcl 40 Meq/Ns) 1,000 mls @ 125 mls/hr IV INFUSION NATE Last Admin: 12/14/22 16:34 Dose: 125 mls/hr IV Miscellaneous Supplies (Iv Access) 1 each IV DIRECTED NATE Lamotrigine (Lamotrigine 100 Mg Tab) 300 mg PO DAILY NATE Lidocaine (Lidocaine 5% Patch) 1 patch TP Q24H NATE Lorazepam (Lorazepam 2 Mg/Ml Vial) 1 mg IVP Q2H PRN PRN Lorazepam (Lorazepam 0.5 Mg Tab) 0.5 mg PO TID PRN PRN Magnesium Hydroxide (Milk Of Magnesia 30 Ml Cup) 30 ml PO DAILY PRN PRN Miscellaneous (Lidocaine Patch Removal) 1 each TP DAILY@0600 NATE Sodium Chloride (Normal Saline Flush 10 Ml Syr) 0 ml IVP PRN PRN METHODS: A 21 channel digitized electroencephalogram was performed in the [facility] Med/Surg Floor or ICU. The 10/20 international system of electrode placement was used and bipolar and referential electrode montages were recorded. In addition to EEG the patient was monitored for EKG and lateral/vertical eye movements. Activation procedures of photic stimulation and hyperventilation were performed if applicable. Video was used during activation procedures and during events where applicable. The duration of the recording was 30 minutes. DESCRIPTION OF EEG: The patient was noted to be awake and drowsy during the recording. During maximal wakefulness a 9-Hz posterior background rhythm was present which was well-modulated, symmetrical, reactive to eye opening, and of moderate voltage. With eye opening the background activity changed to a low voltage mixture of alpha, beta, and occasional theta range frequencies. Faster frequencies were present in the bilateral anterior head regions. There was a normal anterior-posterior voltage gradient. During drowsiness, there was attenuation of the posterior dominant background rhythm and vertex waves. No stage II sleep was recorded. During the study, she had about 90 seconds of unresponsiveness during which time there were no EEG abnormalities. She was also singing and stuttering at times during the EEG without abnormalities. Activating Procedures: Photic stimulation was performed which produced a symmetrical posterior driving response at various flash frequencies before it was ended early at patient request. Hyperventilation was performed with moderate effort and produced no physiological slowing of the background. EKG: EKG revealed normal sinus rhythm. INTERPRETATION: This EEG is normal during the awake and drowsy states as well as during abbreviated photic stimulation and hyperventilation. A typical event of staring with unresponsiveness was captured without associated EEG abnormalities. PRIOR EEG: none CLINICAL CORRELATION: No focal regions of cerebral dysfunction or epileptiform activity was present. The event captured above is consistent with a non-epileptic event. Epilepsy remains a clinical diagnosis and a normal EEG does not rule out epilepsy. Clinical correlation is advised. Gabby Rushing MD
[2022-12-14 18:19] LABS: Troponin I < 50 ng/L (<or=60)
[2022-12-14] MEDS: Acetaminophen 325 MG TAB PO (18:23)
[2022-12-14] MEDS: Lidocaine 5% Patch 1 PATCH TP (18:24)
[2022-12-14 18:57] LABS: C Diff PCR Negative (Negative)
[2022-12-14 21:35] LABS: Troponin I < 50 ng/L (<or=60)
[2022-12-14 23:18] LABS: Bilirubin Moderate (Negative); Blood Moderate (Negative); Clarity Clear (Clear); Glucose 100 mg/dL (Negative); Ketones 15 mg/dL (Negative); Leukocyte Esterase Negative (Negative); Nitrite Negative (Negative); Specific Gravity >= 1.030 (1.005-1.025); Urobilinogen 0.2 mg/dL (Up to 0.2); pH 5.5 (5-8)
[2022-12-14 23:29] LABS: Bacteria Moderate HPF (Negative); C & S Indicated? Yes; Casts 0-2 Hyaline LPF (Negative); Crystals Negative HPF (Negative); Epithelial Cells Rare HPF (Negative); Mucus Moderate (Negative); WBC Negative HPF (0-5)
[2022-12-15] VITALS (28 sets, daily range): BP systolic 123–146; BP diastolic 69–83; PULSE 68–91; RESP 15–32; TEMP 36.6–37.1; O2SAT 94–100
[2022-12-15] MEDS: POTASSIUM CHLORIDE/0.9% NACL 1,000 ML 125 MEQ IV (00:14)
[2022-12-15] MEDS: Ondansetron 4 MG TAB PO (00:36)
--- NOTE | 2022-12-15 03:22 | NUR.NOTE ---
-pt given ativan 1 mg IV for releif of anxiety with reliefif
[2022-12-15] MEDS: Lidocaine Patch Removal 1 EACH TP (06:45)
[2022-12-15 07:10] LABS: Abs Immature Grans 0.04 10^3/uL (0.0-0.06); Absolute Basophil Count 0.07 10^3/uL (0.0-0.2); Absolute Eosinophil Count 0.08 10^3/uL (0.0-0.7); Absolute Lymphocyte Count 4.22 10^3/uL (1.2-3.4); Absolute Monocyte Count 1.38 10^3/uL (0.1-0.8); Absolute Neutrophil Count 7.25 10^3/uL (1.2-6.7); Basophils % 0.5; Eosinophils % 0.6; HCT 44.7 % (36.0-46.0); HGB 15.5 g/dL (11.2-15.7); Immature Grans % 0.3; Lymphocytes % 32.4; MCH 33.2 pg (27.0-33.0); MCHC 34.7 % (32.0-36.0); MCV 96 fL (80-95); MPV 9.4 fL (8.0-11.0); Monocytes % 10.6; Neutrophils % 55.6; Platelet Count 360 10^3/uL (130-400); RBC 4.67 10^6/uL (3.93-5.22); RDW 13.2 % (11.7-14.6); RDW-SD 46.6 fL; WBC 13.04 10^3/uL (4.4-10.8)
[2022-12-15 07:31] LABS: *AMPHETAMINES SCREEN URINE Negative (Negative); *BARBITURATES SCREEN URINE Negative (Negative); *BENZODIAZEPINES SCREEN URINE Negative (Negative); Cannabinoids THC Positive (Negative); Cocaine Screen,Urine Negative (Negative); METHADONE URINE SCREEN Negative (Negative); OPIATES URINE SCREEN Negative (Negative)
[2022-12-15 07:41] LABS: Tricyclic Antidepressants Negative (Negative)
[2022-12-15 07:45] LABS: Anion Gap 9.4 mmol/L (3-11); BUN 25 mg/dL (7-18); CO2 22.6 mmol/L (21.0-32.0); Calcium 8.8 mg/dL (8.5-10.1); Chloride 109 mmol/L (98-107); Glucose 99 mg/dL (74-106); Magnesium 2.3 mg/dL (1.8-2.4); PHOSPHORUS 2.5 mg/dL (2.6-4.7); Potassium 4.6 mmol/L (3.5-5.1); Sodium 141 mmol/L (136-145)
[2022-12-15 07:58] LABS: Vitamin B12 1139 pg/mL (193-986)
--- NOTE | 2022-12-15 08:34 | PGE_ITS ---
Date of Service Date of service: 12/15/22 Time of Service: 08:36 Assessment and Plan Assessment and plan (1) Seizure-like activity: Status: Acute Assessment and plan: No evidence of epileptiform discharged on the EEG. In setting of stopping lamotrigine and lorazepam as outpatient, felt to likely be psychogenic. Continue lamotrigine. MRI brain is still happening this am to ensure there is no organic parts delivery driver for the pseudoseizures/mood. Has prn IV lorazepam written. I will reach out to her psychiatric prescriber for advice on how to resume her medications. (2) Adenocarcinoma of right lung: Status: Chronic Assessment and plan: Back pain is not related to this - back did not light up on PET CT. Palliative care is consulted; however, the result of the last PET CT was essentially negative. (3) Bipolar 1 disorder: Status: Chronic Assessment and plan: The patient appears decompensated. She is noncompliant with her therapy. Lamotrigine resumed yesterday. Mental health consulted. Reaching out to her psychiatrist today. (4) Suicidal ideation: Status: Acute Assessment and plan: As above The patient was planning to pursue Act 39, but I think this is related to her undertreated depression. Will need a mental health evaluation. (5) Dehydration: Status: Resolved Assessment and plan: D/c IVF. Encourage PO hydration. (6) Leucocytosis: Status: Acute Assessment and plan: Has nausea and diarrhea. Does not have running water at home. WIll obtain stool studies. Procalcitonin was negative. Has a new cough, per nursing - obtain a CXR. (7) Hypokalemia: Status: Resolved Assessment and plan: Recheck in am (8) Atypical chest pain: Status: Resolved Assessment and plan: Trops/EKGs negative for ACS. (9) DVT prophylaxis: Status: Acute Assessment and plan: SCDs Avoid chemical DVT ppx until MRI brain is obtained to ensure there is no brain lesion. (10) Discharge planning issues: Status: Acute Assessment and plan: Full code Await palliative care consult. Transfer out of the ICU. Subjective Subjective Interval history since last seen: Ms Robert states: miraculously, I am out of pain! She slept last night. She did get nauseated, required zofran, and also had liquid stools. She agrees to a stool sample. Denies dizziness, CP, states she is SOB (I am getting SOB slowly but quickly). Denies n/v now. Promises she will drink plenty of water and coffee. Exam Narrative Exam Narrative: General: middle-aged cachectic female, appears to be more upbeat, making somewhat contradictory statements HEENT: EOMI, MMM Cardiovascular: RRR, no m/r/g Lungs: slight rales at B bases Gastrointestinal: soft, nontender, nondistended Extremities: no edema BLEs, 2+ pedal pulses B Objective Last Vital Signs Temp 36.7 C 12/15/22 07:43 Pulse 80 12/15/22 07:43 Resp 22 12/15/22 07:43 BP 137/77 12/15/22 07:43 Pulse Ox 100 12/15/22 07:43 Laboratory Results - last 24 hr 12/14/22 12/14/22 12/14/22 11:55 11:55 11:55 WBC 14.65 H RBC 5.45 H Hgb 17.8 H Hct 50.7 H MCV 93 MCH 32.7 MCHC 35.1 RDW 12.5 Plt Count 405 H MPV 8.8 Immature Gran % 0.3 Neutrophils % 67.8 Lymphocytes % 22.9 Monocytes % 8.4 Eosinophils % 0.1 Basophils % 0.5 Nucleated RBC % 0.0 Absolute Neutrophils 9.93 H Absolute Lymphocytes 3.35 Absolute Monocytes 1.23 H Absolute Eosinophils 0.01 Absolute Basophils 0.07 VBG pH VBG pCO2 VBG pO2 VBG HCO3 VBG Total CO2 VBG O2 Saturation VBG Base Excess Sodium 136 Potassium 2.9 L Chloride 95 L Carbon Dioxide 25.8 Anion Gap 15.2 H BUN 23 H Creatinine 1.4 H Est GFR (CKD-EPI 2020) 42.54 Glucose 120 H Calcium 10.1 Phosphorus Magnesium Total Bilirubin 1.2 H AST 39 H ALT 31 Alkaline Phosphatase 132 H Troponin I Total Protein 9.6 H Albumin 4.7 Vitamin B12 Procalcitonin TSH 1.87 Urine Color Urine Clarity Urine pH Ur Specific Walton Urine Protein Urine Ketones Urine Blood Urine Nitrite Urine Bilirubin Urine Urobilinogen Ur Leukocyte Esterase Urine RBC Urine WBC Ur Epithelial Cells Urine Crystals Urine Bacteria Urine Casts Urine Mucus Ur Culture Indicated? Urine Glucose Stl C.difficile Tox PCR Salicylates 5.0 Urine Opiates Screen Urine Methadone Screen Acetaminophen < 2 Ur Barbiturates Screen Ur Tricyclics Screen Ur Amphetamines Screen U Benzodiazepines Scrn Urine Cocaine Screen Ur THC Screen Add-On Test Request 12/14/22 12/14/22 12/14/22 11:55 11:55 11:55 WBC RBC Hgb Hct MCV MCH MCHC RDW Plt Count MPV Immature Gran % Neutrophils % Lymphocytes % Monocytes % Eosinophils % Basophils % Nucleated RBC % Absolute Neutrophils Absolute Lymphocytes Absolute Monocytes Absolute Eosinophils Absolute Basophils VBG pH VBG pCO2 VBG pO2 VBG HCO3 VBG Total CO2 VBG O2 Saturation VBG Base Excess Sodium Potassium Chloride Carbon Dioxide Anion Gap BUN Creatinine Est GFR (CKD-EPI 2020) Glucose Calcium Phosphorus Magnesium 2.3 Total Bilirubin AST ALT Alkaline Phosphatase Troponin I Total Protein Albumin Vitamin B12 Procalcitonin < 0.1 TSH Urine Color Urine Clarity Urine pH Ur Specific Walton Urine Protein Urine Ketones Urine Blood Urine Nitrite Urine Bilirubin Urine Urobilinogen Ur Leukocyte Esterase Urine RBC Urine WBC Ur Epithelial Cells Urine Crystals Urine Bacteria Urine Casts Urine Mucus Ur Culture Indicated? Urine Glucose Stl C.difficile Tox PCR Salicylates Urine Opiates Screen Urine Methadone Screen Acetaminophen Ur Barbiturates Screen Ur Tricyclics Screen Ur Amphetamines Screen U Benzodiazepines Scrn Urine Cocaine Screen Ur THC Screen Add-On Test Request DONE 12/14/22 12/14/22 12/14/22 14:34 17:45 18:05 WBC RBC Hgb Hct MCV MCH MCHC RDW Plt Count MPV Immature Gran % Neutrophils % Lymphocytes % Monocytes % Eosinophils % Basophils % Nucleated RBC % Absolute Neutrophils Absolute Lymphocytes Absolute Monocytes Absolute Eosinophils Absolute Basophils VBG pH 7.50 H VBG pCO2 30 L VBG pO2 51 VBG HCO3 24 VBG Total CO2 20 L VBG O2 Saturation 88 VBG Base Excess 0 Sodium Potassium Chloride Carbon Dioxide Anion Gap BUN Creatinine Est GFR (CKD-EPI 2020) Glucose Calcium Phosphorus Magnesium Total Bilirubin AST ALT Alkaline Phosphatase Troponin I < 50 Total Protein Albumin Vitamin B12 Procalcitonin TSH Urine Color Urine Clarity Urine pH Ur Specific Walton Urine Protein Urine Ketones Urine Blood Urine Nitrite Urine Bilirubin Urine Urobilinogen Ur Leukocyte Esterase Urine RBC Urine WBC Ur Epithelial Cells Urine Crystals Urine Bacteria Urine Casts Urine Mucus Ur Culture Indicated? Urine Glucose Stl C.difficile Tox PCR Negative Salicylates Urine Opiates Screen Urine Methadone Screen Acetaminophen Ur Barbiturates Screen Ur Tricyclics Screen Ur Amphetamines Screen U Benzodiazepines Scrn Urine Cocaine Screen Ur THC Screen Add-On Test Request 12/14/22 12/14/22 12/15/22 21:00 22:20 06:20 WBC RBC Hgb Hct MCV MCH MCHC RDW Plt Count MPV Immature Gran % Neutrophils % Lymphocytes % Monocytes % Eosinophils % Basophils % Nucleated RBC % Absolute Neutrophils Absolute Lymphocytes Absolute Monocytes Absolute Eosinophils Absolute Basophils VBG pH VBG pCO2 VBG pO2 VBG HCO3 VBG Total CO2 VBG O2 Saturation VBG Base Excess Sodium 141 Potassium 4.6 D Chloride 109 H Carbon Dioxide 22.6 Anion Gap 9.4 BUN 25 H Creatinine 1.0 Est GFR (CKD-EPI 2020) 63.70 Glucose 99 Calcium 8.8 Phosphorus 2.5 L Magnesium 2.3 Total Bilirubin AST ALT Alkaline Phosphatase Troponin I < 50 Total Protein Albumin Vitamin B12 Procalcitonin TSH Urine Color Yellow Urine Clarity Clear Urine pH 5.5 Ur Specific Walton >= 1.030 H Urine Protein 100 H Urine Ketones 15 H Urine Blood Moderate H Urine Nitrite Negative Urine Bilirubin Moderate H Urine Urobilinogen 0.2 Ur Leukocyte Esterase Negative Urine RBC 3-5 H Urine WBC Negative Ur Epithelial Cells Rare Urine Crystals Negative Urine Bacteria Moderate Urine Casts 0-2 Hyaline Urine Mucus Moderate Ur Culture Indicated? Yes Urine Glucose 100 H Stl C.difficile Tox PCR Salicylates Urine Opiates Screen Urine Methadone Screen Acetaminophen Ur Barbiturates Screen Ur Tricyclics Screen Ur Amphetamines Screen U Benzodiazepines Scrn Urine Cocaine Screen Ur THC Screen Add-On Test Request 12/15/22 12/15/22 12/15/22 06:20 06:20 06:35 WBC 13.04 H RBC 4.67 Hgb 15.5 D Hct 44.7 MCV 96 H MCH 33.2 H MCHC 34.7 RDW 13.2 Plt Count 360 MPV 9.4 Immature Gran % 0.3 Neutrophils % 55.6 Lymphocytes % 32.4 Monocytes % 10.6 Eosinophils % 0.6 Basophils % 0.5 Nucleated RBC % 0.0 Absolute Neutrophils 7.25 H Absolute Lymphocytes 4.22 H Absolute Monocytes 1.38 H Absolute Eosinophils 0.08 Absolute Basophils 0.07 VBG pH VBG pCO2 VBG pO2 VBG HCO3 VBG Total CO2 VBG O2 Saturation VBG Base Excess Sodium Potassium Chloride Carbon Dioxide Anion Gap BUN Creatinine Est GFR (CKD-EPI 2020) Glucose Calcium Phosphorus Magnesium Total Bilirubin AST ALT Alkaline Phosphatase Troponin I Total Protein Albumin Vitamin B12 1139 H Procalcitonin TSH Urine Color Urine Clarity Urine pH Ur Specific Walton Urine Protein Urine Ketones Urine Blood Urine Nitrite Urine Bilirubin Urine Urobilinogen Ur Leukocyte Esterase Urine RBC Urine WBC Ur Epithelial Cells Urine Crystals Urine Bacteria Urine Casts Urine Mucus Ur Culture Indicated? Urine Glucose Stl C.difficile Tox PCR Salicylates Urine Opiates Screen Negative Urine Methadone Screen Negative Acetaminophen Ur Barbiturates Screen Negative Ur Tricyclics Screen Negative Ur Amphetamines Screen Negative U Benzodiazepines Scrn Negative Urine Cocaine Screen Negative Ur THC Screen Positive A Add-On Test Request Time Spent with Patient Time Spent with Patient: 35-49 minutes Time was spent: preparing to see the patient(eg.review tests), obtaining and/or reviewing separately otained hiistory, ordering medications,tests, procedures, referring, communicating with other health career information specialist, indepentently interpreting results, counseling the patient and care coordination
[2022-12-15] MEDS: LORazepam 0.5 MG TAB PO ×2 (08:46→20:19)
[2022-12-15] MEDS: lamoTRIgine 100 MG TAB 300 MG PO (08:47)
[2022-12-15] MEDS: Acetaminophen 325 MG TAB PO ×2 (08:47→20:19)
--- NOTE | 2022-12-15 08:57 | INITIAL_ITS ---
Date of service: 12/15/22 Time of Service: 08:57 Care Management Initial Assmt Initial Assessment REASON FOR HOSPITALIZATION:: adenocarcinoma of right lung PREVIOUS FUNCTIONAL STATUS/SOCIAL/FAMILY SUPPORTS:: Kira lives alone in [place], [place] with her 4 cats. She has one son, Warren, who lives with his in [place], [place]. Kira does not currently receive any services at home, although she stated that she is going to be followed by Palliative Care. CURRENT FUNCTIONAL STATUS:: CM met with Kira in her room in ICU. She was polite and agreeable to conversation. Kira was very talkative and rambled a bit about various subjects. It was difficult at times to keep her focused on the topic of discussion or to answer a question directly. Kira did talk about her home and the fact that she does not have running water. Her son supplies her with jugs of water. She did state that she has electricity, a phone and propane for heat. She has 4 cats which she assured CM her son would care for. Kira is quite clear that her plan is to return home to her trailer and care for herself. In the conversation she talked about her dying cat, stating that she hoped that they could peacefully at the same time. She does not want her cat to alone. Kira's comments suggested that she believes her is imminent. Although she does have metastatic adenocarcinoma of the lung and is receiving treatment for it, her recent PET scan was essentially negative, per provider. Kira did not state that she has any intention of doing anything to cause her own or that it is her wish to . She did make such statements earlier in the day to Dr. Nguyen during a Palliative Care consultation. ADVANCE DIRECTIVES:: none on file Has patient been provided with info about the portal/API?: Yes Did the patient sign up for the portal?: No CODE STATUS:: Full Code INSURANCE COVERAGE / FINANCIAL ISSUES:: Medicare Medicaid PRIMARY CARE PHYSICIAN:: Carolyne Werner POTENTIAL DISCHARGE NEEDS:: follow up with community providers PATIENT/FAMILY EDUCATION NEEDS:: Review of discharge instructions, limitations, follow up plan, discuss Ask Me Three TRANSPORTATION:: via private vehicle with family PLAN:: Kira has stated that she wishes to discharge home, alone. This would not be a safe discharge plan as Kira has demonstrated an inability to care for herself. She has stopped taking her medications and had not had anything to drink for a couple of days when found. Kira will likely be screened by [facility] tomorrow who may recommend inpatient psychiatric treatment. Dr. Nguyen, who saw her in palliative consultation today, stated that she does not believe Kira has decision making capacity, specifically surrounding Act 39. CM will continue to support Kira and assess for discharge planning needs. PFSH All Active Problems (Updated 12/15/22 @ 08:52 by Marissa Lam MD) Nonspecific paroxysmal spell (Acute) Discharge planning issues (Acute) DVT prophylaxis (Acute) Leucocytosis (Acute) Suicidal ideation (Acute) Bipolar 1 disorder (Chronic) Numbness and tingling of both legs (Acute) Seizure-like activity (Acute) Anxiety (Chronic) Depression (Chronic) Globus sensation (Acute) Adenocarcinoma of right lung (Chronic) Posttraumatic stress disorder (Acute) Anxiety and depression (Acute) History of tobacco abuse (Acute) Chronic pain syndrome (Chronic) Stage 4 malignant neoplasm of lung (Acute) Basal cell carcinoma (BCC) of skin of face (Acute) New persistent daily headache (Acute) Dysuria (Acute) Localized swelling of both lower legs (Acute) Occipital headache (Acute) H/O urinary frequency (Acute) Medical History Abnormal findings on diagnostic imaging of abdomen Adenocarcinoma, metastatic Anxiety disorder Chronic pain Constipation Creatinine elevation Fibromyalgia Headache High risk medication use History of depression Hot flashes Insect bite Insomnia Leg edema Low blood pressure Medication monitoring encounter Nausea Night sweats Non-small cell lung cancer Skin lesion of face Smoker Vaginal atrophy Vitamin B12 deficiency anemia, unspecified Surgical History H/O elbow surgery H/O splenectomy H/O total hysterectomy History of tonsillectomy Status post lobectomy of lung Social History Smoking/Tobacco Use Status: Current-Occasional Tobacco Type: cigarettes Smoking risk assessment performed?: Yes Alcohol Intake: never Drug use: Daily Substance use type: crack/cocaine Housing: house Do you feel safe at home: Yes Do you feel safe in your relationship?: Yes
--- NOTE | 2022-12-15 09:10 | DI.RAD_ITS ---
Exam(s) XR PORTABLE CHEST AP EXAM: XR PORTABLE CHEST AP CLINICAL HISTORY: cough. TECHNIQUE: 2D digital imaging was performed. COMPARISON: No exams were available for comparison FINDINGS: Single AP portable view. Heart size is upper normal. The mediastinum is not widened. Lungs are clear. No infiltrates nor obvious pleural effusions. IMPRESSION: No acute pulmonary findings on this single AP portable view of the chest. DATA REPOSITORY: RADIATION DOSE DELIVERED:
[2022-12-15 09:16] LABS: Source Nasal/Nares
[2022-12-15 09:43] LABS: Lab Add On Test DONE
[2022-12-15 09:49] LABS: COVID-19 PCR Negative (Negative)
--- NOTE | 2022-12-15 10:24 | IN_ITS ---
Date of service: 12/15/22 Time of Service: 10:24 PT Notes Visit Reasons: New onset seizures Physical Therapy Inpatient Initial Evaluation Date: 12/15/2022 Referring Doctor: Marissa Lam MD PT Orders: PT CONSULT: Limited ability Precautions: Fall. Standard. Activity as tolerated. Requires CADRE at this time. Patient Profile/Admitting Diagnosis: Kira is a 62-year-old patient admitted in the ICU for management of seizure- like activity, adenocarcinoma R Lung, bipolar 1 disorder, siucidal ideations, dehydration, leukocytosis, hypokalemia, and atypical chest pain. PMHX: All Active Problems?(Updated 12/14/22 @ 17:22 by Marissa Lam MD) Discharge planning issues (Acute) DVT prophylaxis (Acute) Atypical chest pain (Acute) Hypokalemia (Acute) Leucocytosis (Acute) Dehydration (Acute) Suicidal ideation (Acute) Bipolar 1 disorder (Chronic) Numbness and tingling of both legs (Acute) Seizure-like activity (Acute) Anxiety (Chronic) Depression (Chronic) Globus sensation (Acute) Adenocarcinoma of right lung (Chronic) Posttraumatic stress disorder (Acute) Anxiety and depression (Acute) History of tobacco abuse (Acute) Chronic pain syndrome (Chronic) Stage 4 malignant neoplasm of lung (Acute) Basal cell carcinoma (BCC) of skin of face (Acute) New persistent daily headache (Acute) Dysuria (Acute) Localized swelling of both lower legs (Acute) Occipital headache (Acute) H/O urinary frequency (Acute) Medical History? Abnormal findings on diagnostic imaging of abdomen Adenocarcinoma, metastatic Anxiety disorder Chronic pain Constipation Creatinine elevation Fibromyalgia Headache High risk medication use History of depression Hot flashes Insect bite Insomnia Leg edema Low blood pressure Medication monitoring encounter Nausea Night sweats Non-small cell lung cancer Skin lesion of face Smoker Vaginal atrophy Vitamin B12 deficiency anemia, unspecified Surgical History? H/O elbow surgery H/O splenectomy H/O total hysterectomy History of tonsillectomy Status post lobectomy of lung Social History/Home Situation: Per nurse [place] and CM notes, patient has lived off-grid. Patient is independent with all aspects of ADLs prior to admission. Equipment Owned/DME: None Subjective: Verbalizations more than 75% tangential, needs frequent redirection, able to accurately respond but then succeeding statements are way-off topic. Did say yes to walking in the hallway. Dr. Nguyen came in at start of evaluation. Patient okay with PT coming back to allow for critical conversation about status of care/life directives with patient. Objective: General Observation: Supine in bed, head covered by thin sheet, was trying to sleep. Okay with PT. Mental Status: Alert and oriented as to person and place. Able maintain eye contact but responses not entirely accurate. Verbalization tangential most of the time. Pain: Denies Vital Signs: Telemetry monitoring dsicharged as of this morning ROM: Right Upper Extremity: Shoulder Flexion WFL. Shoulder abduction WFL. Elbow flexion WFL. Wrist flexion WFL. Functional opening and closing of hand WFL. Left Upper Extremity: Shoulder Flexion WFL. Shoulder abduction WFL. Elbow flexion WFL. Wrist flexion WFL. Functional opening and closing of hand WFL. Right Lower Extremity: Hip flexion WFL. Hip abduction WFL. Knee flexion WFL. Ankle dorsiflexion WFL. Ankle plantarflexion WFL. Left Lower Extremity: Hip flexion WFL. Hip abduction WFL. Knee flexion WFL. Ankle dorsiflexion WFL. Ankle plantarflexion WFL. Strength: Right Upper Extremity: Shoulder flexors 4/5. Shoulder abductors 4/5. Elbow flexors 5/5. Elbow extensors 5/5. General Manager strong. Left Upper Extremity: Shoulder flexors 4/5. Shoulder abductors 4/5. Elbow flexors 5/5. Elbow extensors 5/5. General Manager strong. Right Lower Extremity: Hip flexors 4/5. Hip abductors 4/5. Knee flexors 5/5. Knee extensors 5/5. Ankle dorsiflexors 4/5. Ankle plantarflexors 4/5. Left Lower Extremity: Hip flexors 4/5. Hip abductors 4/5. Knee flexors 5/5. Knee extensors 5/5. Ankle dorsiflexors 4/5. Ankle plantarflexors 4/5. Bed Mobility/Transfers: Rolling supervision Supine to sit supervision Sit to supine supervision Sit to stand supervision Stand to sit supervision Bed to bedside commode supervision Bedside commode to bed supervision Bed to reclining chair supervision Reclining chair to bed supervision Gait: 500 feet with hand-held assist only. Gait pattern unremarkable. No LOB. Minimal shortness of breath that resolved with rest. Stairs: Ascended and descend 6 x 4-inch steps and 4 x 6-inch steps without holding onto either rails. Minimal shortness of breath that resolved with rest. Balance: Static Sitting: Normal Dynamic Sitting: Normal Static Standing: Good Dynamic Standing: Good Special Tests: Mobility Limitations Standardized Measure [facility] AM-PAC 6 clicks Basic Mobility Inpatient Short Form: Raw Score: 24 CMS Score: 100% deficit Informed Consent/Education: Patient was instructed in purpose of PT consult and plan of care. Agreeable to proceed with established PT POC to achieve personal goals. Assessment: Patient only requires supervision assist just for safety but will benefit from PT to be seen 1x/day for balance progression to reduce fall risk. May walk with nursing staff at least 2x/day without AD. Psychiatric history main determinant for patient's goal of care/care trajectory. Patient presents with clinical signs and symptoms consistent with current/admitting diagnoses that have resulted to mobility limitations, gait instability, generalized weakness, and overall ADL decline as demonstrated by the following impairment level findings: 1. Impaired standing balance Impairments are contributing to the following functional limitations: 1. Increased fall risk Patient is assessed as a 49935 moderate complexity based on the following: History: 62-year-old female with past medical history as indicated above Examination: As above Presentation: Evolving Decision Makin moderate complexity Goals: Goals X1 week 1. Good static and dynamic standing balance/tolerance Plan of Care/Treatment Plan: 1x/day, 7 days/week x 1 week. Plan of care has been reviewed with the GRADING MACHINE OPERATOR providing the service under Physical Therapy direction. Initiate Physical Therapy intervention for balance progression. DISCHARGE RECOMMENDATIONS: [] Home with no services [] [] Home with services [specify] [] Home with outpatient PT [] [] SNF for continued rehabilitation [] [] Production Maintenance Mechanic Care [] [] SNF versus LTC based on ability to participate and progress [] [X] D/C non-PT dependent TREATMENT CODE/TIME: 30560 x 20 minutes (1 unit), 32350 x 15 minutes (1 unit) beginning at 9:55 and 10:39 AM. Thank you for the opportunity to participate in the care of this patient. Laya Baker PT, DPT, CLT [facility], [place]
[2022-12-15 11:27] LABS: Lyme Ab w Rflx to Lyme Confirm Negative (Negative)
--- NOTE | 2022-12-15 13:36 | PCNE_ITS ---
Date of service: 12/15/22 Time of Service: 11:00 History of Present Illness History of Present Illness Chief Complaint: requesting MAID Narrative: From Dr Lam's H and P Ms Robert is a 62 year old female with PMHx of metastatic adenocarcinoma of the lung s/p resection and who is supposed to be on treatment with osimertinib, last PET scan negative,? Bipolar d/o on lamictal, trazodone, cymbalta, prn lorazepam, chronic back pain (without corresponding signal on PET scan), fibromyalgia on methadone, who lives alone off grid in a house without electricity, sanitation, or running water, who was brought to [facility] ED today by ambulance after the Ready had called 911. The patient had contacted [employer] today because she had forgotten but then had suddenly remembered that she had ability to have heat at home and she wanted to be warm and comfortable in preparation to at home on afternoon. The patient had been talking to the family about dying with dignity and had been referred to home hospice, who had kendy barbosa unable to meet with her as outpatient, to have this looked at. The patient stopped taking her medications sometime in the last 1-2 weeks - when, exactly, is not clear. Neither the patient nor the son were able to provide that history. The patient states her PO intake had been poor. She blames it on her teeth and also difficulty with walking - she has been generally weak and she has numbness in her feet. She also states that there is a person who provides her with something to drink, but today he hadn't. She stopped eating and drinking about two days ago. She denies pain anywhere but her back, denies headache, dizziness, CP, nausea, abdominal pain. While in the ER, she had an episode of staring into space which was followed by tongue biting and clonic activity in her RUE. She was loaded with Keppra. The patient has had several of these episodes in the ICU as well, 3 of them witnessed by me, where the patient looks to the right, unable to speak/answer questions, which was followed by twitching of the left side of her face and stuttering when she did come back to it before she could speak fluently again. I did not observe UE tonic clonic activity. She also reported pain in her R chest due to natural bone decay. ? Interim hx: Kira was unable to tell me how she got to the hospital. She did know that she was in [facility]. She knew she was sick but not exactly sure what was causing her problems. She said she has fibromyalgia and scoliosis. When I asked her if there was other problems that she had she did go off on a tangent. When I asked her specifically about cancer she said I had stage IV. I asked her about her living situation and all she could tell me was that she told the people she wanted some left in the tank. She was unable to tell me who the people were and what was going to be left in the tank. She was definite that she was going to tomorrow in the afternoon. I explained that I was a palliative doctor and that I was actually supposed to see her today at home. She did not know what a palliative doctor was. I also talked about medical aid in dying and she then remembered something about this that you had to take a potion and 2 hours later you would be . She could not tell me anything else about this. Because she does not have a turbine blade assembler and she refuses SNF admission, hospice was unable to admit her. She said that her son Warren and [id number] Beatrice would help her. Kira then went into a [facility] about how she wanted to , she wanted to be quick. She Wanted Her cat Pippy to be brought to her as she was dying so that PIP he could be with her. Afterwards she wanted to pee to be brought to a place in [place] where she would be cremated. She wanted her ashes and her cats ashes to be mixed together and then to be placed on a plate with rocks on it. She also said that she was going to go to the cheap cremotorium but could not tell me how her body would get there. She knew the cream at [place] and was off of route to and by giving her a list of premature I am she was able to say [place] premature him she states that once she dies she is going to meet up with her grandfather Bran and grandmother Jovan. They will help her make the transition from life to . She states that she has neck and rib pain from her fibromyalgia and rheumatoid arthritis as well as her scoliosis She states that she is able to sleep at night because stuff in her head gets injected when it is time for her to sleep. She knows that nursing wants a urine She states that this time she is receiving care. She talked about Jaciel crystals and the possibility that she may vomit. She has a brother but he does not want to be there as she dies. She does have a sister who does want to be there. She talked about different items and hanging them in the window to help them to regenerate. I asked her again what her problem was and why she was here. She could not answer it. I also asked her why she wanted to and her reply was she just wanted to do this afternoon. Assessment and Plan Assessment and plan (1) Nonspecific paroxysmal spell: Status: Acute (2) Bipolar 1 disorder: Status: Chronic (3) Adenocarcinoma of right lung: Status: Chronic (4) Chronic pain syndrome: Status: Chronic Assessment and plan: EEG did not confirm seizures. Neurology appointment felt that this was more behavioral or withdrawal of medications. She has been loaded with proper medications. Hospitalist team feels that she may need to go for a psych eval after this acute hospitalization. I agree. She had definite fixation on dying and the process; who she wanted with her how it was going to proceed. I did explain to her that medical aid in dying was for people who understand what they are dying from, and have capacity to make that decision. Initially I wavered about her capacity but after contemplation I do not believe she has capacity to make a decision about medical aid in dying. She could not tell me what she was dying from and recent PET scan did not indicate that she had a 6-month or less prognosis. Additionally hospice is not willing to work with her unless she has a caregiver or is willing to consider SNF placement if she worsens. She was unwilling to do either of these. I did explain to her that I will not consider medical aid in dying unless the person is already on hospice. I am willing to meet with Kira in the future. She would have to be significantly more coherent than she is today. Also she would need to know what she is dying from, have less than a 6-month prognosis, be on hospice, and have capacity to understand that she could stop the process at any time. She could not do this today. Thank you very much for involving me in her care. I am happy to come back and see Kira at any time. Review of Systems Narrative: She states she has pain in her neck ribs back. PFSH All Active Problems (Updated 12/15/22 @ 08:52 by Marissa Lam MD) Nonspecific paroxysmal spell (Acute) Discharge planning issues (Acute) DVT prophylaxis (Acute) Leucocytosis (Acute) Suicidal ideation (Acute) Bipolar 1 disorder (Chronic) Numbness and tingling of both legs (Acute) Seizure-like activity (Acute) Anxiety (Chronic) Depression (Chronic) Globus sensation (Acute) Adenocarcinoma of right lung (Chronic) Posttraumatic stress disorder (Acute) Anxiety and depression (Acute) History of tobacco abuse (Acute) Chronic pain syndrome (Chronic) Stage 4 malignant neoplasm of lung (Acute) Basal cell carcinoma (BCC) of skin of face (Acute) New persistent daily headache (Acute) Dysuria (Acute) Localized swelling of both lower legs (Acute) Occipital headache (Acute) H/O urinary frequency (Acute) Medical History Abnormal findings on diagnostic imaging of abdomen Adenocarcinoma, metastatic Anxiety disorder Chronic pain Constipation Creatinine elevation Fibromyalgia Headache High risk medication use History of depression Hot flashes Insect bite Insomnia Leg edema Low blood pressure Medication monitoring encounter Nausea Night sweats Non-small cell lung cancer Skin lesion of face Smoker Vaginal atrophy Vitamin B12 deficiency anemia, unspecified Surgical History H/O elbow surgery H/O splenectomy H/O total hysterectomy History of tonsillectomy Status post lobectomy of lung Social History Smoking/Tobacco Use Status: Current-Occasional Tobacco Type: cigarettes Smoking risk assessment performed?: Yes Alcohol Intake: never Drug use: Daily Substance use type: crack/cocaine Housing: house Do you feel safe at home: Yes Do you feel safe in your relationship?: Yes Exam Narrative Exam Narrative: Kira is a 62-year-old woman with a history of bipolar now off her medic ations. She does have stage IV lung cancer but recent PET scan did not show disease. She is not taking her oral meds. She is fixated and speaks about and the dying process. Her speech is very tangential. Many times I had to listen for her several minutes to understand what she was trying to say. She was generally disheveled. Several teeth are missing. Her heart was tachycardic. Lungs she is quite thin and is hard to auscultate but there was air movement. In the middle of our conversation she said she had to get up and sit on the commode. She did this and spent the last half of our time together sitting on the commode although I did not hear any urination or bowel movement. Results Last Vital Signs Temp 98.1 F 12/15/22 07:43 Pulse 76 12/15/22 08:00 Resp 20 12/15/22 10:00 BP 135/69 12/15/22 08:00 Pulse Ox 99 12/15/22 10:00 EEG INTERPRETATION: This EEG is normal during the awake and drowsy states as well as during abbreviated photic stimulation and hyperventilation. A typical event of staring with unresponsiveness was captured without associated EEG abnormalities. PRIOR EEG: none CLINICAL CORRELATION: No focal regions of cerebral dysfunction or epileptiform activity was present.? The event captured above is consistent with a non-epileptic event.? Epilepsy remains a clinical diagnosis and a normal EEG does not rule out epilepsy.? Clinical correlation is advised. Labs 12/15/22 06:20 12/15/22 06:20 Labs: Laboratory Results - last 24 hr 12/14/22 12/14/22 12/14/22 11:55 11:55 11:55 WBC RBC Hgb Hct MCV MCH MCHC RDW Plt Count MPV Immature Gran % Neutrophils % Lymphocytes % Monocytes % Eosinophils % Basophils % Nucleated RBC % Absolute Neutrophils Absolute Lymphocytes Absolute Monocytes Absolute Eosinophils Absolute Basophils VBG pH VBG pCO2 VBG pO2 VBG HCO3 VBG Total CO2 VBG O2 Saturation VBG Base Excess Sodium Potassium Chloride Carbon Dioxide Anion Gap BUN Creatinine Est GFR (CKD-EPI 2020) Glucose Calcium Phosphorus Magnesium 2.3 Troponin I Vitamin B12 Procalcitonin < 0.1 Urine Color Urine Clarity Urine pH Ur Specific [place] Urine Protein Urine Ketones Urine Blood Urine Nitrite Urine Bilirubin Urine Urobilinogen Ur Leukocyte Esterase Urine RBC Urine WBC Ur Epithelial Cells Urine Crystals Urine Bacteria Urine Casts Urine Mucus Ur Culture Indicated? Urine Glucose Stl C.difficile Tox PCR Urine Opiates Screen Urine Methadone Screen Ur Barbiturates Screen Ur Tricyclics Screen Ur Amphetamines Screen U Benzodiazepines Scrn Urine Cocaine Screen Ur THC Screen COVID-19 Source SARS-CoV-2 (PCR) Add-On Test Request DONE 12/14/22 12/14/22 12/14/22 14:34 17:45 17:45 WBC RBC Hgb Hct MCV MCH MCHC RDW Plt Count MPV Immature Gran % Neutrophils % Lymphocytes % Monocytes % Eosinophils % Basophils % Nucleated RBC % Absolute Neutrophils Absolute Lymphocytes Absolute Monocytes Absolute Eosinophils Absolute Basophils VBG pH 7.50 H VBG pCO2 30 L VBG pO2 51 VBG HCO3 24 VBG Total CO2 20 L VBG O2 Saturation 88 VBG Base Excess 0 Sodium Potassium Chloride Carbon Dioxide Anion Gap BUN Creatinine Est GFR (CKD-EPI 2020) Glucose Calcium Phosphorus Magnesium Troponin I < 50 Vitamin B12 Procalcitonin Urine Color Urine Clarity Urine pH Ur Specific [place] Urine Protein Urine Ketones Urine Blood Urine Nitrite Urine Bilirubin Urine Urobilinogen Ur Leukocyte Esterase Urine RBC Urine WBC Ur Epithelial Cells Urine Crystals Urine Bacteria Urine Casts Urine Mucus Ur Culture Indicated? Urine Glucose Stl C.difficile Tox PCR Urine Opiates Screen Urine Methadone Screen Ur Barbiturates Screen Ur Tricyclics Screen Ur Amphetamines Screen U Benzodiazepines Scrn Urine Cocaine Screen Ur THC Screen COVID-19 Source SARS-CoV-2 (PCR) Add-On Test Request DONE 12/14/22 12/14/22 12/14/22 18:05 21:00 22:20 WBC RBC Hgb Hct MCV MCH MCHC RDW Plt Count MPV Immature Gran % Neutrophils % Lymphocytes % Monocytes % Eosinophils % Basophils % Nucleated RBC % Absolute Neutrophils Absolute Lymphocytes Absolute Monocytes Absolute Eosinophils Absolute Basophils VBG pH VBG pCO2 VBG pO2 VBG HCO3 VBG Total CO2 VBG O2 Saturation VBG Base Excess Sodium Potassium Chloride Carbon Dioxide Anion Gap BUN Creatinine Est GFR (CKD-EPI 2020) Glucose Calcium Phosphorus Magnesium Troponin I < 50 Vitamin B12 Procalcitonin Urine Color Yellow Urine Clarity Clear Urine pH 5.5 Ur Specific [place] >= 1.030 H Urine Protein 100 H Urine Ketones 15 H Urine Blood Moderate H Urine Nitrite Negative Urine Bilirubin Moderate H Urine Urobilinogen 0.2 Ur Leukocyte Esterase Negative Urine RBC 3-5 H Urine WBC Negative Ur Epithelial Cells Rare Urine Crystals Negative Urine Bacteria Moderate Urine Casts 0-2 Hyaline Urine Mucus Moderate Ur Culture Indicated? Yes Urine Glucose 100 H Stl C.difficile Tox PCR Negative Urine Opiates Screen Urine Methadone Screen Ur Barbiturates Screen Ur Tricyclics Screen Ur Amphetamines Screen U Benzodiazepines Scrn Urine Cocaine Screen Ur THC Screen COVID-19 Source SARS-CoV-2 (PCR) Add-On Test Request 12/15/22 12/15/22 12/15/22 06:20 06:20 06:20 WBC 13.04 H RBC 4.67 Hgb 15.5 D Hct 44.7 MCV 96 H MCH 33.2 H MCHC 34.7 RDW 13.2 Plt Count 360 MPV 9.4 Immature Gran % 0.3 Neutrophils % 55.6 Lymphocytes % 32.4 Monocytes % 10.6 Eosinophils % 0.6 Basophils % 0.5 Nucleated RBC % 0.0 Absolute Neutrophils 7.25 H Absolute Lymphocytes 4.22 H Absolute Monocytes 1.38 H Absolute Eosinophils 0.08 Absolute Basophils 0.07 VBG pH VBG pCO2 VBG pO2 VBG HCO3 VBG Total CO2 VBG O2 Saturation VBG Base Excess Sodium 141 Potassium 4.6 D Chloride 109 H Carbon Dioxide 22.6 Anion Gap 9.4 BUN 25 H Creatinine 1.0 Est GFR (CKD-EPI 2020) 63.70 Glucose 99 Calcium 8.8 Phosphorus 2.5 L Magnesium 2.3 Troponin I Vitamin B12 1139 H Procalcitonin Urine Color Urine Clarity Urine pH Ur Specific [place] Urine Protein Urine Ketones Urine Blood Urine Nitrite Urine Bilirubin Urine Urobilinogen Ur Leukocyte Esterase Urine RBC Urine WBC Ur Epithelial Cells Urine Crystals Urine Bacteria Urine Casts Urine Mucus Ur Culture Indicated? Urine Glucose Stl C.difficile Tox PCR Urine Opiates Screen Urine Methadone Screen Ur Barbiturates Screen Ur Tricyclics Screen Ur Amphetamines Screen U Benzodiazepines Scrn Urine Cocaine Screen Ur THC Screen COVID-19 Source SARS-CoV-2 (PCR) Add-On Test Request 12/15/22 12/15/22 06:35 09:03 WBC RBC Hgb Hct MCV MCH MCHC RDW Plt Count MPV Immature Gran % Neutrophils % Lymphocytes % Monocytes % Eosinophils % Basophils % Nucleated RBC % Absolute Neutrophils Absolute Lymphocytes Absolute Monocytes Absolute Eosinophils Absolute Basophils VBG pH VBG pCO2 VBG pO2 VBG HCO3 VBG Total CO2 VBG O2 Saturation VBG Base Excess Sodium Potassium Chloride Carbon Dioxide Anion Gap BUN Creatinine Est GFR (CKD-EPI 2020) Glucose Calcium Phosphorus Magnesium Troponin I Vitamin B12 Procalcitonin Urine Color Urine Clarity Urine pH Ur Specific [place] Urine Protein Urine Ketones Urine Blood Urine Nitrite Urine Bilirubin Urine Urobilinogen Ur Leukocyte Esterase Urine RBC Urine WBC Ur Epithelial Cells Urine Crystals Urine Bacteria Urine Casts Urine Mucus Ur Culture Indicated? Urine Glucose Stl C.difficile Tox PCR Urine Opiates Screen Negative Urine Methadone Screen Negative Ur Barbiturates Screen Negative Ur Tricyclics Screen Negative Ur Amphetamines Screen Negative U Benzodiazepines Scrn Negative Urine Cocaine Screen Negative Ur THC Screen Positive A COVID-19 Source Nasal/Nares SARS-CoV-2 (PCR) Negative Add-On Test Request Imaging Additional studies: Head CT INDINGS: Ventricles and Extra axial spaces: Normal in size and morphology for the patient's age. Hemorrhage: None. Cerebral parenchyma: No evidence of acute infarct or mass. Midline shift: None. Brainstem/Cerebellum: Normal. Calvarium: Normal. Visualized Paranasal sinuses/Mastoids: Clear. Soft Tissues: Unremarkable. IMPRESSION: No acute intracranial process. MRI ordered but not yet done
[2022-12-15] MEDS: Gadoterate meglumine 20 ML VIAL IVP (15:36)
--- NOTE | 2022-12-15 16:00 | DI.MRI_ITS ---
Exam(s) MR BRAIN WO/W EXAM: MR BRAIN WO/W CLINICAL HISTORY: new onset seizures TECHNIQUE: Multiplanar multisequence MRI of the brain was performed. Both noninfused and contrast i nfused sequences were performed. IV Contrast injected was 9 cc Dotarem. COMPARISON: MR MR BRAIN WO/W from 01/20/[address] HEAD WO from 12/14/2022 FINDINGS: CEREBRAL PARENCHYMA: No evidence of intracranial hemorrhage, mass effect nor shift of midline structu re. No extraaxial fluid collections. Ventricles are not enlarged nor shifted. There is no significant focal signal abnormality in the cerebellar hemispheres nor within the mckenzie, m idbrain, and thalami. There is no abnormal signal abnormality in the periventricular white matter. DWI: No areas of restricted diffusion to suggest acute ischemic event. SWI: No microhemorrhages evident. There are no ring enhancing lesions in the brain. There is no abnormal meningeal enhancement. PITUITARY GLAND: No mass nor parasellar abnormality. No obvious abnormality in the cavernous sinuses. FLOW VOIDS: The expected flow void are noted. No evidence of obvious aneurysm nor obvious vascular ma lformation. PARANASAL SINUSES: The visualized paranasal sinuses appear unremarkable. However, there is fluid in t he right mastoid air cells, similar to CT scan yesterday. ORBITS: No obvious abnormal findings. IMPRESSION: 1. No significant intracranial findings on this MRI scan of the brain. 2. No abnormal enhancing intracranial findings. There are no ring enhancing lesions in the brain and there is no abnormal meningeal enhancement. 3. There is fluid in the right-sided mastoid air cells. Left mastoid air cells are clear. Other pa ranasal sinuses are clear. DATA REPOSITORY:
[2022-12-15] MEDS: Lidocaine 5% Patch 1 PATCH TP (18:20)
[2022-12-15] MEDS: Normal Saline Flush 10 ML SYR IVP (18:20)
[2022-12-15] MEDS: Ondansetron O.D.T. 4 MG TABEF PO (20:43)
[2022-12-16] VITALS (9 sets, daily range): BP systolic 114–134; BP diastolic 75–80; PULSE 66–76; RESP 18–20; TEMP 36.6–37; O2SAT 93–100
[2022-12-16] MEDS: Lidocaine Patch Removal 1 EACH TP (05:18)
[2022-12-16 06:58] LABS: Abs Immature Grans 0.05 10^3/uL (0.0-0.06); Absolute Eosinophil Count 0.27 10^3/uL (0.0-0.7); Absolute Lymphocyte Count 3.78 10^3/uL (1.2-3.4); Absolute Monocyte Count 1.41 10^3/uL (0.1-0.8); Basophils % 0.6; Eosinophils % 1.9; HGB 14.8 g/dL (11.2-15.7); Immature Grans % 0.4; Lymphocytes % 26.5; MCH 32.7 pg (27.0-33.0); MCHC 35.2 % (32.0-36.0); MCV 93 fL (80-95); MPV 8.9 fL (8.0-11.0); Monocytes % 9.9; Neutrophils % 60.7; Platelet Count 349 10^3/uL (130-400); RBC 4.52 10^6/uL (3.93-5.22); RDW 12.8 % (11.7-14.6); RDW-SD 44.2 fL; WBC 14.28 10^3/uL (4.4-10.8)
[2022-12-16 07:12] LABS: Anion Gap 8.8 mmol/L (3-11); BUN 13 mg/dL (7-18); CO2 23.2 mmol/L (21.0-32.0); CREATININE 0.9 mg/dL (0.55-1.02); Calcium 8.8 mg/dL (8.5-10.1); Chloride 101 mmol/L (98-107); Estimated GFR 72.28 (mL/min/1.73m2); Glucose 105 mg/dL (74-106); Magnesium 2.1 mg/dL (1.8-2.4); Potassium 4.1 mmol/L (3.5-5.1); Sodium 133 mmol/L (136-145)
[2022-12-16 07:22] LABS: Absolute Basophil Count 0.09 10^3/uL (0.0-0.2); Absolute Neutrophil Count 8.67 10^3/uL (1.2-6.7)
[2022-12-16] MEDS: lamoTRIgine 100 MG TAB 300 MG PO (07:51)
--- NOTE | 2022-12-16 08:06 | PDOC.CMPRO ---
Date of service: 12/16/22 Time of Service: 08:07 Care Management Progress Note Progress Note Text Progress Note Text: S/O:Kira was screened by [facility] crisis screener today. While her speech was tangential and Kira needed frequent redirection, the screener determined that she does not meet criteria for involuntary treatment. Kira does not wish to go for voluntary inpatient treatment but is agreeable to outpatient services, including case management, therapy and psychiatry. The referral has been sent to [facility]. Kira knows that she has cancer and wishes to but does not have any plan to act on that. Per Claudine, the [facility] screener, Kira rated herself a 0 on the SI scale and has no plan. She may still benefit from SNF placement as she is very weak. CM met with Kira and her son and [id number] today and Kira agreed to go to a SNF for short term rehab. Referrals will be sent to [facility] and [facility] and rehab. A: Kira is a 62 year old woman admitted on 12/14/22 with seizures P:Kira has agreed to go to a SNF for short term rehab. She will be re-evaluated by PT this afternoon and referrals will be sent to [facility] and [facility]. CM will continue to support Kira and support discharge planningconcerns.
[2022-12-16 08:23] LABS: Lab Add On Test DONE
[2022-12-16 08:35] LABS: C-Reactive Protein 0.05 mg/dL (0.0-0.3)
[2022-12-16] MEDS: Ondansetron 4 MG/2 ML VIAL IVP ×2 (10:04→15:50)
[2022-12-16] MEDS: Normal Saline Flush 10 ML SYR IVP (10:05)
--- NOTE | 2022-12-16 12:37 | PDOC.MHCN_ITS ---
Date of service: 12/16/22 Time of Service: 12:37 PHQ-9 Over the last 2 weeks, how often have you been bothered by any of the following problems? 1. Little interest or pleasure in doing things: several days 2. Feeling down, depressed, or hopeless: nearly every day 3. Trouble falling or staying asleep, or sleeping too much: nearly every day 4. Feeling tired or having little energy: nearly every day 5. Poor appetite or overeating: nearly every day 6. Feeling bad about yourself - or that you are a failure or have let yourself and your family down: nearly every day 7. Trouble concentrating on things, such as reading the newspaper or watching television: nearly every day 8. Moving or speaking so slowly that other people could have noticed? - Or the opposite - being so fidgety or restless that you have been moving around a lot more than usual: nearly every day 9. Thoughts that you would be better off or of hurting yourself in some way: nearly every day Total score: 25 If you checked off any problems, how difficult have these problems made it for you to do your work, take care of things at home, or get along with other people?: extremely difficult PHQ-9 Results: Positive Source: Developed by Drs. John Cedeno, Rebekah Aviles, Myke Esteves and colleagues, with an educational guillermina from [employer]. Suicide Severity Rate CSSRS Have you wished you were or wished you could go to sleep and not wake up?: Yes Have you actually had any thoughts of killing yourself?: Yes CSSRS2 Have you been thinking about how you might do this?: Yes Have you had these thoughts and had some intention of acting on them?: Yes Have you started to work out or worked out the details of how to kill yourself? Do you intend to carry out this plan?: Yes CSSRS3 Have you ever done anything, started to do anything or prepared to do anything to end your life?: No Screening Score Total Score: 4 Screening: Positive Mental Health Emergency Note Release HS release signed:: Yes Reason for Visit The client arrived on 12.14.22 via [facility] due to not eating for several days and had stopped her medications 3 weeks ago for her cancer and bi-polar diagnosis. Due to medical issues the client was admitted medically and is medically cleared today. This assessment is completed face to face. In the last 2 weeks has the pt presented for ES prior to today?: Unknown Client Information Client is: New Well Housed: Yes Non Suicidal Self Injury Current: No History: No Safety Risk/Harm to Self or Others Current Ideation to Harm Self or Others: No Risk: Does risk to harm exist?: No Duty to warn indicated: No Asssessment/Mental Status Appearance: Poor hygiene (The client became sick just before this clinician arrived. ) Attitude: Cooperative and Friendly Behavior: Unremarkable Speech: Soft and Other (Slower than normal pace and longer than normal breaks in ideas.) Affect: Flat Mood: Depressed and Anxious Thought process: Goal directed Hallucinations: No and No evidence ( No evidence witnessed today however, the client stated that she does have some and is diagnosed with Schizoaffective personality and Bipolar.) Delusions: yes, (The client beieves that Pallitive Care is coming to see her later and n 15 day's from then she will take part in Act 39 (Physician assisted suicide). ) Bizarre Attention: Wandering Perception: Not impaired Orientation: Fully orientated Memory: Impaired in: Remote Insight: Good Judgement: Fair Neurovegetative Symptoms Sleep: Decrease Appetitie: Decrease Interests: Decrease Energy: Decrease Libido: Not applicable Substance Use: Do you use nicotine?: Yes Have you used substances in the last 7 days?: No Additional Issues: Assaultive/Threatening Behavior: No Medical Concerns: No Client engaged in active self harm w/weapon: No Threatening to run away: No Child reported abuse/neglect: No Voluntarily presenting for services: Yes Domestic violence is a concern: No Extreme Psychosis or extreme behavior is present: Yes Impression The client is a 62 year old, single, female who lives independently in a cabin that has no running water in [facility]. She initially came to the ED via ambulance per her report because she had become agitated with a woman when trying to get propane and that person called 911. Per EMS report while on scene she made statements of suicide and had not eaten in several days so was brought in to [facility]. She was hospitalized due to experiencing seizures and this needed to be monitored more closely. The client stated I want to end my pain and be put to . This clinician asked the client to give the date (she looked to the board) and read it. This clinician then asked if she knew the day and she said so this clinician explored further if this was the day she was going to go home and with her cat to which she responded with a plan of what she perceives to be happening. The client stated that she is meeting with hospice this afternoon and that she will discuss her wishes. She then said she has to wait 15 days and then a trained professional will come and administer the medication to end her life. She said she will discuss this with her son and the professional today. She said this is to happen mid December. She goes on to explain how she wants her son to allow the professionals to handle her body after and how she wants her son and [id number] to handle her cat's burial when it passes. The client identified her son and [id number]-hl-[id number] and a friend as her natural supports. She identified her PCP Carolyne as her professional support. The client listed her strengths as identifying rocks and a history of hammering and horseback riding. She denied a history of legal issues or other medical issues. She denied a history of psychiatric hospitalizations which her son confirmed. She admitted to stopping her medication regimen because I don't need them. It is important to note that the client's answers to her CSSRS although positive she relates to her thought that she is dying and that she denied any intent to kill herself. She self-reported her risk level a 0/10. She noted that this is why her PCP also stopped her Ativan and Trazadone because at the time she wanted to overdose. The client presented lying in her bed and has splatter of vomit on her. She sits up and appears to be a fragile lady who presents with tangential thoughts. She often is heard answering questions inaccurately, telling a story that has no relation and then will lower her head and say I forgot mid-sentence/thought. She reported a improved appetite since being at [facility]. She reports improved sleep since being at [facility]. She reported a decrease in interest and energy. Additionally she reported she experiences hallucinations (not observed directly during the assessment). All of these symptoms are congruent with a depressive disorder and or bipolar disorder with psychotic features. Based on a record review of her past chart with [facility] this clinician will go with a Major Depressive disorder with psychotic features. Resources Reosurces reviewed and given:: 988 and [facility] Plan/Disposition Recommended Disposition: [facility] Services [facility] Services: Therapy, Psychiatric Evaluation and Other (Case management). Plan: The client is cleared from a MH standpoint. ES will outreach tomorrow to check in on her as well as, next week. Person reported agreement to plan: Yes Reports/communication Outcome discussed with: ED/Personnel
[2022-12-16] MEDS: LORazepam 0.5 MG TAB PO ×2 (13:00→20:14)
[2022-12-16] MEDS: Acetaminophen 325 MG TAB PO ×2 (13:00→20:15)
[2022-12-16] MEDS: Pantoprazole 40 MG TABCR PO (13:34)
[2022-12-16] MEDS: Amoxicillin 875/Clav. 125 TAB PO ×2 (13:35→19:04)
--- NOTE | 2022-12-16 14:23 | CHAPLAIN ---
Kria was tucked in under her sheets when I visited. I couldn't see her, but when I called her name she uncovered herself. She asked for another warm blanket, so I got that for her. She told me someone is taking care of her cats for her. This seemed to be important information for her to share. She said she's in touch with her son and daughter in law. Kira shared some personal history, telling me about being born in [place] and growing up in the [place]. Her father's family had a saw mill where they made pallets and dowels. Kira talked about having the sawdust blown into bags to use for the cats. I let Kira know that reconnaissance crewmember is available 06/12.
--- NOTE | 2022-12-16 14:42 | PT.INTREAT ---
Date of service: 12/16/22 Time of Service: 14:14 PT Notes Visit Reasons: New onset seizures Inpatient Physical Therapy Treatment Note [facility] Date: 12/16/22 PRECAUTIONS: Fall, standard, activity as tolerated. Not longer requiring 1:1 sitter. SUBJECTIVE: Patient reports feeling nauseous, cold. Sidelying in bed, agreeable to therapy. OBJECTIVE: PAIN: none reported. BED MOBILITY/TRANSFERS Rolling L/R: standby Supine-sit: standby Sit-supine: standby Sit-stand: standby] Stand-sit: standby Bed-Chair: standby Chair-bed: standby GAIT Assistive Device: none Weight bearing: full Assist: standby Distance: 325 feet Deviation: Patient insists on wrapping herself in a blanket. Short, shuffling steps. No notable loss of balance, however she does bump into an item on the left side. Reports she is unhurt. Reports extreme fatigue, weakness at 300 feet; denies dizziness or lightheadedness. VITALS: Closely monitored by nursing staff. ASSESSMENT: patient appears to tolerate therapy well, still very weak and easily fatigued. I have concerns about her returning to live off grid; she would benefit from further strengthening. PLAN: Continue global strengthening per plan of care until patient is medically cleared for discharge. TREATMENT CODE/TIME: [id number] ther ex 8 minutes beginning at 14:14
[2022-12-16] MEDS: Mylanta Suspension 30 ML CUP PO (18:05)
--- NOTE | 2022-12-16 18:34 | PGE_ITS ---
Date of Service Date of service: 12/16/22 Time of Service: 18:34 Assessment and Plan Assessment and plan (1) Seizure-like activity: Status: Acute Assessment and plan: No evidence of epileptiform discharged on the EEG. Events are considered psychogenic. Continue lamotrigine. MRI brain negative. I have been unable to get in touch with her psychiatric provider. (2) Adenocarcinoma of right lung: Status: Chronic Assessment and plan: Back pain is not related to this - back did not light up on PET CT. The result of the last PET CT was essentially negative. The patient met with palliative care and is not a candidate for hospice or Act 39. (3) Bipolar 1 disorder: Status: Chronic Assessment and plan: The patient appears decompensated. She is noncompliant with her therapy. Lamotrigine resumed. I will also resume duloxetine. Mental health has cleared the patient. She is being referred to [facility] as outpatient. I have not been able to get in touch with her mental health prescriber. (4) Suicidal ideation: Status: Ruled-out Assessment and plan: Evaluated by mental health and not considered suicidal. Rather, she has a fixation on dying. (5) Dehydration: Status: Resolved Assessment and plan: Encourage PO hydration. (6) Leucocytosis: Status: Acute Assessment and plan: Diarrhea resolved. C. diff negative; remainder of stool studies is pending. Evidence of sinusitis - started on augmentin. Procalcitonin was negative. (7) Hypokalemia: Status: Resolved Assessment and plan: Recheck in am (8) Atypical chest pain: Status: Resolved Assessment and plan: Trops/EKGs negative for ACS. (9) DVT prophylaxis: Status: Acute Assessment and plan: Start Sc heparin (10) Discharge planning issues: Status: Acute Assessment and plan: Full code Will go to SNF on discharge. Will need outpatient mental health follow up. Subjective Subjective Interval history since last seen: Ms Robert is simultaneously hungry and nauseated. She did vomit this morning. Her diarrhea has stopped. Denies dizziness, CP, SOB, abdominal pain. Mental health cleared her from their stand point, and the patient does not want to go to a psychiatric facility voluntarily. Mental health does not feel she is suicidal. I discussed with mental health that I felt that the patient's desire to was a fixed delusion. The patient is being referred to [facility]. [facility] states she is not their client already, but her prescriber, Beatrice Yoder, is assigned to [facility]. I have not been able to get in touch with her. Exam Narrative Exam Narrative: General: middle-aged cachectic female, A&Ox3, is digging with a spoon in her tray and guarding it while complaining about being nauseated HEENT: EOMI, MMM Cardiovascular: RRR, no m/r/g Lungs: CTAB Gastrointestinal: soft, nontender, nondistended Extremities: no edema BLEs, 2+ pedal pulses B Objective Last Vital Signs Temp 36.9 C 12/16/22 16:00 Pulse 73 12/16/22 16:00 Resp 20 12/16/22 16:00 BP 134/80 12/16/22 16:00 Pulse Ox 100 12/16/22 16:00 Laboratory Results - last 24 hr 12/16/22 12/16/22 12/16/22 06:40 06:40 06:40 WBC 14.28 H RBC 4.52 Hgb 14.8 Hct 42.0 MCV 93 MCH 32.7 MCHC 35.2 RDW 12.8 Plt Count 349 MPV 8.9 Immature Gran % 0.4 Neutrophils % 60.7 Lymphocytes % 26.5 Monocytes % 9.9 Eosinophils % 1.9 Basophils % 0.6 Nucleated RBC % 0.0 Absolute Neutrophils 8.67 H Absolute Lymphocytes 3.78 H Absolute Monocytes 1.41 H Absolute Eosinophils 0.27 Absolute Basophils 0.09 Sodium 133 L Potassium 4.1 Chloride 101 Carbon Dioxide 23.2 Anion Gap 8.8 BUN 13 Creatinine 0.9 Est GFR (CKD-EPI 2020) 72.28 Glucose 105 Calcium 8.8 Magnesium 2.1 C-Reactive Protein Stl C.difficile Tox PCR Add-On Test Request DONE 12/16/22 12/16/22 06:40 08:06 WBC RBC Hgb Hct MCV MCH MCHC RDW Plt Count MPV Immature Gran % Neutrophils % Lymphocytes % Monocytes % Eosinophils % Basophils % Nucleated RBC % Absolute Neutrophils Absolute Lymphocytes Absolute Monocytes Absolute Eosinophils Absolute Basophils Sodium Potassium Chloride Carbon Dioxide Anion Gap BUN Creatinine Est GFR (CKD-EPI 2020) Glucose Calcium Magnesium C-Reactive Protein 0.05 Stl C.difficile Tox PCR TNP Add-On Test Request Objective Narrative Objective Narrative: MRI brain w/w/o contrast: 1. No significant intracranial findings on this MRI scan of the brain. 2. No abnormal enhancing intracranial findings.? There are no ring enhancing lesions in the brain and there is no abnormal meningeal enhancement. 3.? There is fluid in the right-sided mastoid air cells.? Left mastoid air cells are clear.? Other paranasal sinuses are clear. Time Spent with Patient Time Spent with Patient: 25-34 minutes Time was spent: preparing to see the patient(eg.review tests), obtaining and/or reviewing separately otained hiistory, ordering medications,tests, procedures, referring, communicating with other health behavioral health care manager, indepentently interpreting results, counseling the patient and care coordination
[2022-12-16] MEDS: Omeprazole 20 MG CAPCR PO (19:04)
[2022-12-16] MEDS: Lidocaine 5% Patch 1 PATCH TP (19:04)
[2022-12-16] MEDS: Heparin 5,000 UNITS/ML VIAL 5000 UNITS SC (20:14)
[2022-12-16 23:13] LABS: Campylobacter PCR Negative (Negative); Salmonella PCR Negative (Negative); Shiga Toxin PCR Negative (Negative); Shigella/Enteroinvasive Ecoli Negative (Negative)
[2022-12-17] VITALS (14 sets, daily range): BP systolic 109–143; BP diastolic 63–123; PULSE 77–94; RESP 18–21; TEMP 36.4–37; O2SAT 93–100
[2022-12-17] MEDS: traZODone 100 MG TAB PO ×2 (01:00→21:41)
[2022-12-17] MEDS: Acetaminophen 325 MG TAB PO (06:13)
[2022-12-17 06:42] LABS: Abs Immature Grans 0.03 10^3/uL (0.0-0.06); Absolute Eosinophil Count 0.29 10^3/uL (0.0-0.7); Absolute Lymphocyte Count 4.77 10^3/uL (1.2-3.4); Absolute Monocyte Count 1.19 10^3/uL (0.1-0.8); Basophils % 0.9; Eosinophils % 2.6; HCT 43.7 % (36.0-46.0); HGB 15.1 g/dL (11.2-15.7); Immature Grans % 0.3; Lymphocytes % 42.2; MCH 32.5 pg (27.0-33.0); MCHC 34.6 % (32.0-36.0); MCV 94 fL (80-95); MPV 9.1 fL (8.0-11.0); Monocytes % 10.5; Neutrophils % 43.5; Platelet Count 361 10^3/uL (130-400); RBC 4.64 10^6/uL (3.93-5.22); RDW 12.8 % (11.7-14.6); RDW-SD 43.8 fL; WBC 11.31 10^3/uL (4.4-10.8)
[2022-12-17 06:45] LABS: Absolute Neutrophil Count 4.92 10^3/uL (1.2-6.7)
[2022-12-17] MEDS: Pantoprazole 40 MG TABCR PO (07:50)
[2022-12-17] MEDS: Omeprazole 20 MG CAPCR PO (07:50)
--- NOTE | 2022-12-17 08:15 | NUR.NOTE ---
Patient set up with breakfast tray. Patient cuts of her toast by hand into little pieces.Nursing Note:
[2022-12-17] MEDS: DULoxetine 30 MG CAP PO (08:23)
[2022-12-17] MEDS: lamoTRIgine 100 MG TAB 300 MG PO (08:23)
--- NOTE | 2022-12-17 08:27 | CMPROGNOTE_ITS ---
Date of service: 12/17/22 Time of Service: 08:27 Care Management Progress Note Progress Note Text Progress Note Text: S/O:Kiar was sitting up in bed visiting with her son and [id number] when CM met with her. Kira had been willing to go to rehab but did not have a skilled need. She will likely discharge home tomorrow with new home health services for medication management (RN), [employer] and OT. TODD also sent a referral to [facility] for Options counseling and Meals on Wheels. Her son Warren stated that he was disappointed that Kira would not be able to go to rehab and he is afraid that she will stop taking her medications again. CM reminded solomon stewart that home health services will be ordered to help with medications, and that she has agreed to receive mental health services through [facility]. A: Kira is a 62 year old woman admitted on 12/14/22 with seizures P:Kira had agreed to go to a SNF for short term rehab, however she did not meet criteria. She will likely be discharged home tomorrow with new home health services for nursing, OT and [employer] . CM also sent a referral to [facility] for case management and Meals on Wheels. Kira will follow up with her community providers and plan of care and her son Warren will transport her via private vehicle.. CM will continue to support Kira and support discharge planning concerns.
[2022-12-17] MEDS: Amoxicillin 875/Clav. 125 TAB PO (08:38)
[2022-12-17] MEDS: Heparin 5,000 UNITS/ML VIAL 5000 UNITS SC (08:39)
--- NOTE | 2022-12-17 09:48 | PGE_ITS ---
Date of Service Date of service: 12/17/22 Time of Service: 09:48 Assessment and Plan Assessment and plan (1) Seizure-like activity: Status: Acute Assessment and plan: negative EEG obtained during one of her spells, seizures are considered psychogenic; continue her currrent dose of lamotrigine; Dr. Rushing's input appreciated. (2) Adenocarcinoma of right lung: Status: Chronic Assessment and plan: Back pain is not related to this - back did not light up on PET CT. The result of the last PET CT was essentially negative. The patient met with palliative care and is not a candidate for hospice or Act 39. will focus on P.T. and non-narcotic analgesics (3) Bipolar 1 disorder: Status: Chronic Assessment and plan: patient seems fixated on her dying even though she has no evidence of progression of her cancer. She has been noncompliant in taking her home meds but since admission she has been compliant. Lamotrigine and duloxetine has been resumed. (4) Suicidal ideation: Status: Ruled-out Assessment and plan: Evaluated by mental health and not considered suicidal. Rather, she has a fixation on dying. (5) Leucocytosis: Status: Acute Assessment and plan: Diarrhea resolved. C. diff negative; remainder of stool studies is pending. some fluid seen in left mastoid process (seen on CT and MRI of brain) but clinically has no signs/symptoms of mastoiditis, and no ear pain. As patient had diarrhea on admission and still has nausea, I am discontinuing her Augmentin. (6) Hypokalemia: Status: Resolved Assessment and plan: resolved. will stop rechecking unless she has recurrent diarrhea or vomiting. (7) DVT prophylaxis: Status: Acute Assessment and plan: patient is on low dose heparin. she has some bruising of her legs but these appear to be old bruises. I will check her prothrombin and activated PTT (8) Discharge planning issues: Status: Acute Assessment and plan: Full code Will go to SNF on discharge. patient is willing to go to SNF when bed becomes available Will need outpatient mental health follow up. Subjective Subjective Interval history since last seen: Patient is agreeable to going to SNF for short term but remains fixated on that she is going to undergo assisted suicide and on her birthday in January in her own home. When I specifically asked her about whether or not she plans to take her own life she denies that she will do this on her own but insists that she will have provider assisted suicide. She still has some nausea but no vomiting and no abdominal pains. She has poor dentition and therefore I have changed her diet to soft bite sized w/ thin liquids. I have asked for nutritional consult. Exam Narrative Exam Narrative: Patient is alert, she seems to be oriented and initially her conversations seemed appropriate w/ appropriate answers to my questions, however when she brought up her fixation on dying, she became very teary eyed. When I explained to her that her lung cancer has not spread according to her latest PET/CT (10/15/22) although her MRI of her spine suggested foci involving T11 and L2. HEENT: poor dentition, missing multiple teeth Lungs: clear Heart: RRR Abdomen: soft, scaphoid, nontender Legs: no edema but some bruising of her tibia; these appear to be old bruises, already turning green/yellow Objective Last Vital Signs Temp 36.8 C 12/17/22 08:13 Pulse 84 12/17/22 08:13 Resp 18 12/17/22 08:13 BP 139/81 12/17/22 08:13 Pulse Ox 98 12/17/22 08:13 Laboratory Results - last 24 hr 12/16/22 12/17/22 10:10 06:02 WBC 11.31 H RBC 4.64 Hgb 15.1 Hct 43.7 MCV 94 MCH 32.5 MCHC 34.6 RDW 12.8 Plt Count 361 MPV 9.1 Immature Gran % 0.3 Neutrophils % 43.5 Lymphocytes % 42.2 Monocytes % 10.5 Eosinophils % 2.6 Basophils % 0.9 Nucleated RBC % 0.0 Absolute Neutrophils 4.92 Absolute Lymphocytes 4.77 H Absolute Monocytes 1.19 H Absolute Eosinophils 0.29 Absolute Basophils 0.10 Stool Campylobacter PCR Negative Stool Salmonella PCR Negative Stool Shigella PCR Negative Shiga Toxin (PCR) Negative Time Spent with Patient Time Spent with Patient: 35-49 minutes Time was spent: preparing to see the patient(eg.review tests), ordering medications,tests, procedures, referring, communicating with other health wild animal caretaker, indepentently interpreting results and care coordination
[2022-12-17] MEDS: Ondansetron 4 MG/2 ML VIAL IVP (09:57)
[2022-12-17] MEDS: Normal Saline Flush 10 ML SYR IVP (09:58)
--- NOTE | 2022-12-17 10:00 | NUR.NOTE ---
Patient given 4mg of Ondansetron IVP for nauseaNursing Note:
[2022-12-17] MEDS: Nicotine 21 MG/24 HR PATCH TD (10:21)
[2022-12-17 10:54] LABS: Anaplasma phagocytophilum Negative (Negative); B. miyamotoi PCR Negative (Negative); Babesia divergens/MO-1 Negative (Negative); Babesia duncani Negative (Negative); Babesia microti Negative (Negative); Ehrlichia chaffeensis Negative (Negative); Ehrlichia ewingii/canis Negative (Negative); Ehrlichia muris eauclairensis Negative (Negative)
[2022-12-17 11:35] LABS: INR 0.9 (0.9-1.1); PTT Activated 27.9 sec (21.5-31.9); Prothrombin Time 9.3 sec (9.3-11.0)
[2022-12-17 12:43] LABS: Lamotrigine 1.3 mcg/mL (3.0-15.0)
--- NOTE | 2022-12-17 13:45 | NUR.NOTE ---
Son and [id number] are in room visiting with patient. RN speaks to home health care case manager who says patient will be discharged tomorrow.Nursing Note:
--- NOTE | 2022-12-17 14:11 | NUR.NOTE ---
Patient completes her shower.Nursing Note:
[2022-12-17] MEDS: LORazepam 0.5 MG TAB PO (14:54)
--- NOTE | 2022-12-17 14:59 | NUR.NOTE ---
Patient is restless. RN gives patient 0.5mg of Ativan for same.Nursing Note:
--- NOTE | 2022-12-17 16:11 | PT.INTREAT ---
Date of service: 12/17/22 Time of Service: 15:49 PT Notes Visit Reasons: New onset seizures Inpatient Physical Therapy Treatment Note [facility] Date: 12/17/22 PRECAUTIONS: Fall, standard, activity as tolerated. SUBJECTIVE: Patient is making her bed when this therapist arrives. Agreeable to therapy. Seems more energetic today, bordering on agitated. Frequently loses train of thought mid sentence and states I forgot. Yesterday complained of being cold, today no complaints of cold, says she is happy she is being fed well here. Complains of increased nausea towards end of treatment. OBJECTIVE: PAIN: None reported BED MOBILITY/TRANSFERS Rolling L/R: independent Supine-sit: independent Sit-supine: independent Sit-stand: independent Stand-sit: independent Bed-Chair: independent Chair-bed: independent GAIT Assistive Device: none Weight bearing: full Assist: hand hold Distance: 1500 feet Deviation: Rapid smith. Good step height, good step length, seemed to be in a hurry. VITALS: monitored by nursing staff THEREX: Brisk ambulation to improve cardiovascular function. ASSESSMENT: Patient is independent for mobility. I have concerns about her cognition and ability to manage at home, as she had trouble today completing any of her thoughts out loud, ending almost every sentence partway through with I forgot. PLAN: Continue therapeutic intervention per plan of care until patient is medically cleared for discharge. Would benefit from assistance at home to ensure safety, food security etc. TREATMENT CODE/TIME: 88433 Ther Ex 11 minutes beginning at 15:49
--- NOTE | 2022-12-17 16:29 | NUR.NOTE ---
Patient begins to eat a bananna, and eats a cup of chocolate puddiing.Nursing Note:
--- NOTE | 2022-12-17 17:08 | NUR.NOTE ---
Patient is set up with her dinner tray of tortellini, chicken soup and potatoes. Patient reallky enjoys said food and feeds herself.Nursing Note:
[2022-12-17] MEDS: Lidocaine 5% Patch 1 PATCH TP (17:40)
--- NOTE | 2022-12-17 18:27 | NUR.NOTE ---
Patient sleeping comfortably.Nursing Note:
[2022-12-17] MEDS: Protein Nutritional Supplement 16 GM 1 OUNCE PACKET PO (21:41)
[2022-12-17] MEDS: Trimethobenzamide 200 MG/2 ML VIAL IM (21:41)
[2022-12-18] VITALS (8 sets, daily range): BP systolic 120–128; BP diastolic 69–76; PULSE 81–94; RESP 17–19; TEMP 36.5–37; O2SAT 97–99
[2022-12-18] MEDS: Acetaminophen 325 MG TAB PO (02:09)
--- NOTE | 2022-12-18 07:27 | NUR.NOTE ---
RN receives call from patient's son, who informs RN that he will need time today to clearn patient's home before he comes to hospital to collect his mother. Patient is expected to be discharged today with extensive servies.Nursing Note:
[2022-12-18] MEDS: Protein Nutritional Supplement 16 GM 1 OUNCE PACKET PO (07:41)
[2022-12-18] MEDS: Nicotine 21 MG/24 HR PATCH TD (07:41)
[2022-12-18] MEDS: lamoTRIgine 100 MG TAB 300 MG PO (07:42)
[2022-12-18] MEDS: Pantoprazole 40 MG TABCR PO (07:43)
[2022-12-18] MEDS: DULoxetine 30 MG CAP PO (07:43)
[2022-12-18] MEDS: Omeprazole 20 MG CAPCR PO (07:43)
[2022-12-18] MEDS: Heparin 5,000 UNITS/ML VIAL 5000 UNITS SC (07:53)
--- NOTE | 2022-12-18 07:55 | NUR.NOTE ---
Patient still hanging on to her desire for physician assisted suicide but in the same breath quite convincingly commits to living a more healthy lifestyle and eating better. Patient is upbeat and looking forward to going home today.Nursing Note:
--- NOTE | 2022-12-18 08:02 | NUR.NOTE ---
Patient is set up with breakfast tray. Patient begins feeding herself. No nausea noted.Nursing Note:
--- NOTE | 2022-12-18 10:33 | PT.INTREAT ---
PT Notes Visit Reasons: New onset seizures Date: 12/18/22 PRECAUTIONS: Fall, standard, activity as tolerated. Not longer requiring 1:1 sitter. SUBJECTIVE: Pt reports feeling well today, no complaints OBJECTIVE: PAIN: none reported. ? BED MOBILITY/TRANSFERS? Rolling L/R: supervision Supine-sit: supervision? Sit-supine: supervision? Sit-stand: supervision? Stand-sit: supervision? Bed-Chair: supervision? Chair-bed: supervision ? GAIT? Assistive Device: none? Weight bearing: full Assist: 1hand held per pt request ? Distance:? 400 feet? Deviation: intermittent increase with speed cue for slower gait and emphasis on hip and knee flexion to improve step clearance.? VITALS:? Closely monitored by nursing staff. ? ASSESSMENT:? Pt reports feeling ready for DC, expects to get out of the hospital by this afternoon. PLAN: Continue global strengthening per plan of care until patient is medically cleared for discharge. TREATMENT CODE/TIME: 09573 gait training 8 minutes 10:05- 10:13am
--- NOTE | 2022-12-18 11:58 | NUR.NOTE ---
Patient's appetite is quite good. Patient is set up with her lunch and begins feeding herself potatoes and meatloaf. Patient says for the first time, she is feeling fine and plans on hanging around for a number of years.Nursing Note:
--- NOTE | 2022-12-18 12:00 | NUR.NOTE ---
Patient says she believes she is healthy and does not want to deed her property to her son any longer since it is just not time for that any longer.Nursing Note:
--- NOTE | 2022-12-18 12:47 | PDOC.HHF2F ---
Home Health Referral Home Health Orders Clinical synopsis of why skilled professionals are needed: patient presented to hospital w/ pseudoseizures and exacerbation of her bipolar disorder and w/ suicidal ideation. She stabilized once she was put back on her home meds. Home health nursing is needed for evaluate medication compliance and understanding of her meds and to performe safety check. Medical diagnosis necessitation home health referral: bipolar disorder, pseudoseizures, chronic pain syndrome, adenocarcinoma of the lung Registered Nurse: Check all that apply Instruct on new or changed medication(s)/assess compliance: Ordered Occupational Therapist: Evaluate and treat for patient unable to perform ADL/IADL/self-care: Ordered (assess home safety, recommend any home modifications to improve patient's safety) Online Marketing Analyst: Assist with community resources: Ordered Assist with termite helper care planning: Ordered Home Bound Status Patient has a condition such that leaving home is medically contraindicated (Describe): patient mental condition is such that makes travel outside her home unaccompanied by an adult unsafe Describe why leaving home would require a considerable and taxing effort: Confusion Encounter Date and Reason: I certify that a FTF encounter for this patient was performed on December 18, 2022 and that such encounter was related to the primary reason the patient requires home health services. The encounter was conducted in the following manner: By me as the certifying physician, REPORTING CONSULTANT, PA or By an inpatient physician, REPORTING CONSULTANT or PA during an inpatient stay who communicated findings to me, Certification And Authentication I certify that I composed the above information based on my clinical judgment relating to this patient's medical condition and, if applicable, clinical findings communicated to me by the NPP or inpatient physician who performed the FTF encounter. Name of Provider that will be monitoring home health services: Carolyne Werner
--- NOTE | 2022-12-18 12:50 | W.PM.DS.N ---
Date of service: 12/18/22 Time of Service: 12:50 DS: Diagnosis Discharge Diagnosis (1) Seizure-like activity: Status: Resolved (2) Adenocarcinoma of right lung: Status: Chronic (3) Bipolar 1 disorder: Status: Chronic (4) Suicidal ideation: Status: Ruled-out (5) Leucocytosis: Status: Resolved (6) Hypokalemia: Status: Resolved (7) DVT prophylaxis: Status: Deleted (8) Discharge planning issues: Status: Deleted Discharge Plan Disposition Patient Disposition: Home W/Home Health Services Condition: Good Discharge Details Reason For Visit: New onset seizures Admit Date/Time: 12/14/22 14:25 Admit Provider: Marissa Lam Attending Provider: Marissa Lam Primary Care Provider: Carolyne Werner Hospital Course Hospital Course: There is a 62-year-old female with past medical history of metastatic adenocarcinoma lung status post resection who was supposed to be on treatment on osimertinib with her last PET scan being negative earlier this spring. She also has bipolar disorder for which she is treated with Lamictal trazodone Cymbalta and lorazepam. She has chronic fibromyalgia for which she supposed be on methadone. Spare the emergency department by ambulance after [facility] called 911. Patient had contacted [employer] because she went to be sure she had plate hanging oil so she can be warm and comfortable in preparation to at home. Patient's been fixated with physician assisted suicide. On emergency department she was witnessed to have staring spells and tongue biting and clonic activity in her right upper extremity for which she was believed to have had a seizure. She was loaded with Keppra. Patient also has several similar episodes in the ICU 3 of them witnessed by Dr. Lam in which the patient was able to look right at Dr. Lam but was unable to speak or answer questions and then this was followed by left-sided twitching of her face and stuttering. However she had a similar episode while undergoing EEG monitoring and she was seen by Dr. Gabby Rushing from neurology services. No focal regions of cerebral dysfunction or epileptiform activity were seen during this monitoring. No witnessed event was felt to be a nonepileptic event. While normal EEG cannot rule out epilepsy it was felt at least the spells that the patient presented with were not epileptic in nature. Patient was restarted on her Lamictal and her duloxetine. For her chronic back pain she was put on lidocaine patches. For chronic nausea she was given Zofran. Patient did well and had no further seizure activity. [facility] saw the patient for mental health consult felt that she was not at high risk of suicidal behavior. Even though the patient continues to have fixation that she will have a physician assisted suicide performed by TAVR birthday which is the end of January. Patient was evaluated by physical therapy in the no need for inpatient physical therapy treatment. Patient was discharged home in stable medical condition. It is recommended that she follow-up with [facility] for her mental health care. She should follow-up with her primary care provider regarding her medical issues. Any further neurologic questions can be directed towards Dr. Rushing. Home Meds and New Rx's Prescriptions: New duloxetine 30 mg Capsule,Delayed Release(Dr/Ec) 30 mg PO DAILY Qty: 14 0RF Continued omeprazole 40 mg capsule,delayed release(DR/EC) 40 mg PO DAILY Patient Comments: pt states she is no longer taking this medication 12/14/22 Tagrisso 80 mg tablet 40 mg PO DAILY Patient Comments: pt states she is no longer taking this medication 12/14/22 lamotrigine [Lamictal] 150 mg tablet 300 mg PO DAILY Qty: 30 0RF lidocaine 4 % adhesive patch,medicated 1 patch topical DAILY PRNQty: 30 0RF Rx Instructions: apply to lower back daily, remove after 12h Changed lorazepam [Ativan] 0.5 mg tablet 1 mg PO TID PRNQty: 0 0RF Patient Comments: pt states she is no longer taking this medication 12/14/22 ondansetron 4 mg tablet,disintegrating 4 mg PO Q8H PRN PRNQty: 0 0RF Discontinued naloxone [Narcan] 4 mg/actuation spray,non-aerosol 4 mg intranasal DIRECTED PRN Patient Comments: pt states she is no longer taking this medication 12/14/22 Rx Instructions: spray 1 dose into ONE nostril; alternate nostrils w each dose until help arrives docusate calcium 240 mg capsule 240 mg PO BID Patient Comments: pt states she is no longer taking this medication 12/14/22 methadone 5 mg tablet 5 mg PO TID Patient Comments: pt states she is no longer taking this medication 12/14/22 lactulose 10 gram/15 mL (15 mL) solution 15 ml PO .COMPLEX Patient Comments: pt states she is no longer taking this medication 12/14/22 Rx Instructions: Take 1-2 tsp QAM to prevent constipation. trazodone 50 mg tablet 200 mg PO QHS PRN Patient Comments: pt states she is no longer taking this medication 12/14/22 naproxen sodium 550 mg tablet 550 mg PO BID PRN Patient Comments: pt states she is no longer taking this medication 12/14/22 duloxetine 60 mg capsule,delayed release(DR/EC) 120 mg PO DAILY Patient Comments: pt states she is no longer taking this medication 12/14/22 morphine 30 mg capsule,extend.release pellets 30 mg PO Q12H Patient Comments: pt states she is no longer taking this medication 12/14/22 Myrbetriq 25 mg tablet extended release 24 hr 25 mg PO DAILY Qty: 90 0RF Patient Comments: pt states she is no longer taking this medication 12/14/22 Aimovig Autoinjector 140 mg/mL auto-injector 140 mg subcut QMONTH Qty: 1 3RF Patient Comments: pt states she is no longer taking this medication 12/14/22 hydroxyzine HCl 25 mg tablet 25 mg PO Q6H PRN PRN (Reason: headaches) Qty: 60 3RF Patient Comments: pt states she is no longer taking this medication 12/14/22 aripiprazole 10 mg tablet 15 mg PO DAILY Patient Comments: TAKE ONE TABLET BY MOUTH EVERY DAY; pt states she is no longer taking this medication 12/14/22 Myrbetriq 50 mg tablet extended release 24 hr 50 mg PO DAILY Patient Comments: TAKE 1 TABLET BY MOUTH ONCE DAILY; pt states she is no longer taking this medication 12/14/22 oxycodone [OxyContin] 15 mg tablet,oral only,ext.rel.12 hr 15 mg PO Q12H PRN PRN Patient Comments: TAKE ONE TABLET BY MOUTH EVERY 12 HOURS; pt states she is no longer taking this medication 12/14/22 Discharge Instructions Instructions: Bipolar Disorder (DC), Help Prevent Suicide (DC) Additional Instructions: You were admitted for possible seizures. You had a consultation w/ a neurologist and had an EEG which did not demonstrate epileptic convulsions. You had a brain MRI which did not show any tumors, nor any aneurysms and no evidence for multiple sclerosis. You had recent PET/CT done which did not show any activity of your lung cancer. Because of your ideation of having physician assisted suicide, we consulted [facility] services. They do not feel that you are suicidal. You have expressed to me that you do not intend to commit suicide but continue to express a desire for a physician assisted termination. We do not feel that you have a diagnosis which qualifies for physician assisted suicide as your lung cancer is currently inactive. I recommend that you follow up / [facility] for further mental health help to assist you with treament of your bipolar disorder. Please follow up w/ Carolyne Werner, your PCP in the next week. I have written a limited supply refill for your lamictal and for your duloxetine. You should also follow up w/ your oncologist to discuss your lung cancer condition specifically addressing your prognosis and any further treatment that is recommended. Referrals: Carolyne Werner [Primary Care Provider] - (call the office on Tuesday to set follow up in the next week) Activity:: Activity as Tolerated Equipment/Supplies:: No Equipment Needed Diet:: Normal Diet Discharge Orders Discharge Orders: Discharge Order (Routine); Ordered 12/18/22 Ordered By: Lj Herrera Discharge Data Discharge Date/Time-TO BE ENTERED AT DEPARTURE: 12/18/22 16:00 Discharge Comment: Patient is thankful for the care. DS: Summary Time Spent with Patient providing and/or coordinating discharge services: Greater than 30 minutes Status at Discharge Functional status at discharge: independent ambulation Overall status at discharge: patient is back to baseline Mental Status: mental status grossly normal Speech and Movement: speech and movement normal Mood: congruent mood Affect: normal affect Exam Narrative Exam Narrative: Kira is alert, oriented to person/place/time/circumstances She answers me appropriately, she is looking forward to her son bring her home from the hospital She is still fixated on the idea that she will have physician assisted suicide performed in time for her family to spread her ashes on her birthday in January but she explicitly denies intentions of taking her own life. She seems calm and matter of fact, not tremulous and not diaphoretic Lungs: clear Heart: RRR Abdomen: soft, scaphoid and nontender Extremities: no edema or cyanosis; she has some old bruises over both tibia Psych Mental Status: mental status grossly normal Speech and Movement: speech and movement normal Mood: congruent mood Affect: normal affect DS: Data Vitals/I&O Vitals and I&O: Vital Signs Temperature 36.5 C 12/18/22 11:57 Temperature Source Temporal Artery Scan 12/18/22 11:57 Pulse 94 H 12/18/22 11:57 Pulse Rhythm Regular 12/18/22 08:45 Pulse 83 12/15/22 10:00 Respiratory Rate 18 12/18/22 11:57 Respiratory Effort Normal 12/18/22 08:45 Respiratory Depth Normal 12/18/22 08:45 Respiratory Pattern Normal 12/18/22 08:45 Blood Pressure 128/75 12/18/22 11:57 Blood Pressure Mean 84 12/18/22 11:53 Blood Pressure Position Right Lateral 12/15/22 07:43 Pulse Oximetry 98 12/18/22 11:57 Oxygen Delivery Method Room Air 12/18/22 11:57 Oxygen Flow Rate 0 12/18/22 11:57 Pain Level 0 12/18/22 11:57 Intake & Output 12/17/22 12/18/22 12/18/22 23:59 11:59 23:59 Intake Total 337 / 557 300 / 300 Output Total 450 / 1100 540 / 640 100 / 640 Balance -113 / -543 -240 / -340 -100 / -340 Weight 45.6 kg Intake: Oral 337 / 557 300 / 300 Output: Urine 450 / 1100 540 / 640 100 / 640 Other: Urine Color Straw Yellow Yellow Urine Appearance Clear Clear Clear Urine Odor None None None Stool Size Small Moderate Small Stool Characteristics Soft Soft Soft Formed Formed Formed Voiding Methods Bedside Commode Bedside Commode Bedside Commode Data Completed and Pending Labs on day of discharge: Labs from last 24 hours 12/16/22 12/14/22 12/14/22 08:06 17:45 11:55 Stool Description Not Applicable Stool Ova & Parasites SEE BELOW Lamotrigine 1.3 L B. divergens/MO-1 PCR Negative Babesia duncani (PCR) Negative Babesia microti DNA PCR Negative Cryptosporidium/Giardia SEE BELOW E.chaffeensis DNA (PCR) Negative E.ewingii/canis DNA PCR Negative E.muris eauclairensis (PCR) Negative A. phagocytophilum (PCR) Negative Blood B. miyamotoi (PCR) Negative PFSH All Active Problems (Updated 12/19/22 @ 00:11 by CALI LINO) Bipolar 1 disorder (Chronic) Numbness and tingling of both legs (Acute) Anxiety (Chronic) Depression (Chronic) Globus sensation (Acute) Adenocarcinoma of right lung (Chronic) Posttraumatic stress disorder (Acute) Anxiety and depression (Acute) History of tobacco abuse (Acute) Chronic pain syndrome (Chronic) Stage 4 malignant neoplasm of lung (Acute) Basal cell carcinoma (BCC) of skin of face (Acute) New persistent daily headache (Acute) Dysuria (Acute) Localized swelling of both lower legs (Acute) Occipital headache (Acute) H/O urinary frequency (Acute) Medical History Abnormal findings on diagnostic imaging of abdomen Adenocarcinoma, metastatic Anxiety disorder Chronic pain Constipation Creatinine elevation Fibromyalgia Headache High risk medication use History of depression Hot flashes Insect bite Insomnia Leg edema Low blood pressure Medication monitoring encounter Nausea Night sweats Non-small cell lung cancer Skin lesion of face Smoker Vaginal atrophy Vitamin B12 deficiency anemia, unspecified Surgical History H/O elbow surgery H/O splenectomy H/O total hysterectomy History of tonsillectomy Status post lobectomy of lung Social History Smoking/Tobacco Use Status: Current-Occasional Tobacco Type: cigarettes Smoking risk assessment performed?: Yes Alcohol Intake: never Drug use: Daily Substance use type: crack/cocaine Housing: house Do you feel safe at home: Yes Do you feel safe in your relationship?: Yes Time Spent with Patient Time Spent with Patient: <45 minutes Time was spent: preparing to see the patient(eg.review tests), ordering medications,tests, procedures, referring, communicating with other health health care coordinator, indepentently interpreting results, counseling the patient and care coordination
--- NOTE | 2022-12-18 14:59 | NUR.NOTE ---
Patient dresses herself and is waiting for her son to arrive to take her home.Nursing Note:
--- NOTE | 2022-12-18 15:03 | PDOC.CMDIS ---
Date of service: 12/18/22 Time of Service: 15:03 LACE Index Scoring Tool Questions: Length of Stay (in days): 4 - 6 Was the patient admitted via the E.D.?: Yes Comorbidities: Any Tumor E.D. Visits: 1 Answers: Total Score: 10 Risk of Readmission: High Risk Care Management Discharge Plan Reason for Hospitalization: adenocarcinoma of right lung Discharge Plan: Kira will discharge home with new home health services for RN and [employer] as well as a new referral to [facility] for case management and [facility] on Whe[facility]. Kira will follow up with her community providers and plan of care and transport via private vehicle with her son Warren. Patient/Family Education Needs: Review discharge instructions, discuss Ask Me Three. Services Needed at Discharge: Home Delivered Meals and Home Health Care Services
== END 2022-12-18 16:00 | disposition home health service (06) | DRG 101 ==
LOC: ER 14:28 → ICU 16:00
PROVIDERS: Internal Medicine; Admitting Provider Internal Medicine; Emergency Provider Student in an Organized Health Care Education/Training Program; PCP Nurse Practitioner Family; Visit Provider Internal Medicine
DX: R56.9 Unspecified convulsions (principal); C34.91 Malignant neoplasm of unspecified part of right bronchus or lung; R45.851 Suicidal ideations; R64 Cachexia; Z68.1 Body mass index [BMI] 19.9 or less, adult; F31.9 Bipolar disorder, unspecified; E86.0 Dehydration; D72.829 Elevated white blood cell count, unspecified; R07.89 Other chest pain; E87.6 Hypokalemia; G89.4 Chronic pain syndrome; F41.9 Anxiety disorder, unspecified; Z79.899 Other long term (current) drug therapy; F25.9 Schizoaffective disorder, unspecified; F43.10 Post-traumatic stress disorder, unspecified; Z91.148 Patient's other noncompliance with medication regimen for other reason; Z79.891 Long term (current) use of opiate analgesic; R60.0 Localized edema; R51.9 Headache, unspecified; R26.2 Difficulty in walking, not elsewhere classified; I95.9 Hypotension, unspecified; D51.9 Vitamin B12 deficiency anemia, unspecified; Z90.2 Acquired absence of lung [part of]; F17.210 Nicotine dependence, cigarettes, uncomplicated; F14.90 Cocaine use, unspecified, uncomplicated
CPT/HCPCS: 36415; 70553; 80048; 80053; 80175; 80307; 82805; 84145; 87329; 87493; 87505; 87635; 87798; 95816; 96365; 96368; 96375; 97110; 97116; 97162; 97530; 99223; 99285; 70450; 71045; 80329; 81003; 81015; 82607; 83735; 84100; 84443; 84484; 85025; 85610; 85730; 86140; 86618; 87086; 87177; 93005; 93010; 99232; 99239; 99291; J1644; J1953; J2060; J2405; J3480; J3490; J8597

== ENCOUNTER 2023-01-26 14:48 | Outpatient (REF) | payer MEDICARE, MEDICAID, SELFPAY ==
[2023-01-26 15:26] LABS: Abs Immature Grans 0.05 10^3/uL (0.0-0.06); Absolute Eosinophil Count 1.29 10^3/uL (0.0-0.7); Absolute Lymphocyte Count 3.82 10^3/uL (1.2-3.4); Absolute Monocyte Count 1.18 10^3/uL (0.1-0.8); Basophils % 0.9; Eosinophils % 11.6; HGB 14.5 g/dL (11.2-15.7); Immature Grans % 0.4; Lymphocytes % 34.3; MCH 33.9 pg (27.0-33.0); MCHC 33.7 % (32.0-36.0); MCV 101 fL (80-95); MPV 10.3 fL (8.0-11.0); Monocytes % 10.6; Neutrophils % 42.2; Platelet Count 419 10^3/uL (130-400); RBC 4.28 10^6/uL (3.93-5.22); RDW 16.1 % (11.7-14.6); WBC 11.13 10^3/uL (4.4-10.8)
[2023-01-26 15:56] LABS: ALT 22 U/L (14-59); AST 24 U/L (15-37); Albumin 3.9 g/dL (3.4-5.0); Alkaline Phosphatase 112 U/L (46-116); Anion Gap 6.9 mmol/L (3-11); BUN 20 mg/dL (7-18); Bilirubin, Total 0.4 mg/dL (0.2-1.0); CO2 29.1 mmol/L (21.0-32.0); CREATININE 1.1 mg/dL (0.55-1.02); Calcium 9.3 mg/dL (8.5-10.1); Chloride 100 mmol/L (98-107); Estimated GFR 56.81 (mL/min/1.73m2); Glucose 86 mg/dL (74-106); Potassium 4.3 mmol/L (3.5-5.1); Sodium 136 mmol/L (136-145); Total Protein 8.2 g/dL (6.4-8.2)
== END 2023-01-26 14:49 | disposition home or self-care (01) ==
LOC: LBN 14:48
PROVIDERS: PCP Nurse Practitioner Family; Visit Provider Internal Medicine
DX: C78.01 Secondary malignant neoplasm of right lung (principal); C78.02 Secondary malignant neoplasm of left lung
CPT/HCPCS: 80053; 85025

== ENCOUNTER → 2023-02-22 14:51 | Outpatient (BNVA) | payer MEDICARE, MEDICAID, SELFPAY | PROVIDERS: PCP Nurse Practitioner Family; Visit Provider Nurse Practitioner Gerontology | DX: R39.89 Other symptoms and signs involving the genitourinary system (principal) | CPT/HCPCS: 51798; 99213 ==

== ENCOUNTER → 2023-03-08 01:16 | Outpatient (CLI) | payer MEDICARE, MEDICAID, SELFPAY ==
--- NOTE | 2023-03-08 | DI.CT_ITS ---
Exam(s) CT CHEST/ABD/PEL W EXAM: CT CHEST/ABD/PEL W CLINICAL HISTORY: LUNG CANCER C34.91 RESTAGING. TECHNIQUE: Imaging Protocol: Axial computed tomography images with coronal and sagittal reformatted images were created and reviewed CONTRAST MATERIAL: Intravenous: Omnipaque 350 Contrast volume:100 ml Oral: Yes. Oral contrast was also administered for bowel opacification. COMPARISON: CR LUMBAR SPINE COMPLETE from 07/19/[address] CHEST LUNG CANCER SCREEN from 04/24/[address] ABDOMEN PELVIS W from 01/25/[address] ABD AORTA CTA W RUNOFF from 11/20/2022 CR XR PORTABLE CHEST AP from 12/15/2022 FINDINGS: CHEST: LUNGS: The spiculated lesion in the right upper lobe seen on CT scan of April 2018 has not recurred. The re are no findings at this level on the present study. There is a E subpleural nodule in the lateral basal segment of the right lower lobe measuring 5 x 4 m m. Another subpleural noncalcified nodule in the right middle lobe measuring 5 x 4 mm. These exhibi t minimal if any significant change from prior abdominal CT scans. Higher in the right lung there ar e no significant nodules. In the opposite-left lung there is a subpleural noncalcified well-defined round nodule measuring 4 x 4 mm in the left lower lobe. This is higher up than the images of prior a bdominal CT scans and therefore cannot be compared. Lower down in the left lower lobe there is a sma ll benign calcified granuloma adjacent to the major fissure. There is also noncalcified 4 x 4 mm lef t lower lobe nodule which is unchanged. In the lateral basal segment of the left lower lobe there ar e benign-appearing subpleural markings which are unchanged from recent abdominal CT scans by not evid ent on the [address] scan.. There are no pleural effusions. MEDIASTINUM: There is no hilar nor mediastinal adenopathy. No axillary adenopathy. No supraclavicula r adenopathy. Visualized thyroid unremarkable. CARDIAC: Heart size is normal. There is no pericardial effusion.Caliber of the thoracic aorta is wit hin normal limits. OSSEOUS: No acute appearing fractures. There is a lucent bone lesion in the inferior aspect of L2 wh ich measures 1.2 x 0.9 cm, and a similar but smaller appearing lucent bone lesion in the inferior asp ect of L1, both unchanged from prior CT scan of January 2022 and therefore probably benign. No new bone lesions identified. ABDOMEN: There is no ascites. Interposition of bowel noted between the right hepatic lobe and anterior abdomi nal wall, this being the a Paddock flexure of the colon. No bowel obstruction at this level nor else where. LIVER: There are no new significant focal hepatic lesions. Mild dilatation of intrahepatic ducts is unchanged. CBD diameter is upper normal. GALLBLADDER/BILIARY: No obvious gallbladder pathology. PANCREAS: No evidence of pancreatic mass nor dilatation of the pancreatic duct. 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 ADRENALS: Thickened left adrenal gland appears unchanged. Slightly thickened right adrenal gland als o appears unchanged. KIDNEYS: No calculi nor hydronephrosis. No solid renal masses. Small sub cm benign cortical cysts are again noted. These do not require further imaging workup. ABDOMINAL AORTA: Abdominal aorta is not enlarged. LYMPH NODES: There is no retroperitoneal nor paraaortic adenopathy. ABDOMINAL WALL: No evidence of significant anterior abdominal wall nor inguinal hernia. GI: There is no evidence of bowel obstruction.Oral contrast has reached the transverse colon level. PELVIS: LYMPH NODES: There is no intrapelvic nor inguinal adenopathy. GI: No evidence of appendicitis.No evidence of sigmoid diverticulitis. URINARY BLADDER: No calculi nor masses evident REPRODUCTIVE: Uterus surgically absent. No abnormal adnexal masses. No free fluid in the pelvis. OSSEOUS: No fractures nor new significant osseous lesions in the pelvic bones. IMPRESSION: 1. There has been no recurrence of the spiculated mass in the right upper lobe which was evident on CT scan of April 2018. There are small bilateral pulmonary nodules evident which appear mostly stable compared to prior scan s. However, 1 of these which is in the lateral basal segment of the right lower lobe measures perhap s minimally. Larger than on the January 2022 study and larger than on the 2018 study. This may be significant despite quite slow growth. 2. There is no intrathoracic adenopathy. No pleural effusions. 3. No evidence of new metastatic disease in the abdomen and pelvis. Thickening of both adrenal gland s is unchanged from previous CT scans. No new masses, lymphadenopathy, mesenteric masses, nor ascite s. 4. Mild dilatation of intrahepatic ducts again noted. CBD diameter is normal. No obvious gallbladde r pathology. 5. Lucencies within L1 and L2 vertebral bodies are unchanged from prior CT scan of January 2022 an d therefore most probably benign. RADIATION DOSE DELIVERED: Total DLP DATA REPOSITORY: All CT scans at this facility are submitted to the National Radiology Data Registry (NRDR) Dose Index Registry (DIR) with the [employer] (ACR). RADIATION OPTIMIZATION: All CT scans at this facility use at least one of these dose optimization te chniques: automated exposure control; mA and/or kV adjustment per patient size (includes targeted exa ms where dose is matched to clinical indication); or iterative reconstruction.
[2023-03-08] MEDS: Breeza Beverage 473 ML BTL 900 ML PO (08:06)
[2023-03-08 08:19] LABS: Abs Immature Grans 0.02 10^3/uL (0.0-0.06); Absolute Basophil Count 0.12 10^3/uL (0.0-0.2); Absolute Eosinophil Count 0.51 10^3/uL (0.0-0.7); Absolute Lymphocyte Count 2.78 10^3/uL (1.2-3.4); Absolute Monocyte Count 0.91 10^3/uL (0.1-0.8); Absolute Neutrophil Count 5.88 10^3/uL (1.2-6.7); Basophils % 1.2; HCT 41.6 % (36.0-46.0); HGB 14.1 g/dL (11.2-15.7); Immature Grans % 0.2; Lymphocytes % 27.2; MCH 33.9 pg (27.0-33.0); MCHC 33.9 % (32.0-36.0); MCV 100 fL (80-95); Monocytes % 8.9; Neutrophils % 57.5; Platelet Count 352 10^3/uL (130-400); RBC 4.16 10^6/uL (3.93-5.22); RDW 13.2 % (11.7-14.6); RDW-SD 49.2 fL; WBC 10.22 10^3/uL (4.4-10.8)
[2023-03-08 08:25] LABS: ALT 26 U/L (14-59); AST 20 U/L (15-37); Albumin 3.8 g/dL (3.4-5.0); Alkaline Phosphatase 103 U/L (46-116); Anion Gap 6.7 mmol/L (3-11); BUN 16 mg/dL (7-18); Bilirubin, Total 0.4 mg/dL (0.2-1.0); CO2 30.3 mmol/L (21.0-32.0); Calcium 9.3 mg/dL (8.5-10.1); Chloride 100 mmol/L (98-107); Glucose 108 mg/dL (74-106); Potassium 3.6 mmol/L (3.5-5.1); Sodium 137 mmol/L (136-145); Total Protein 8.6 g/dL (6.4-8.2)
[2023-03-08] MEDS: Omnipaque 350 MG/ML 500 ML BTL-Imaging package IJ (09:52)
[2023-03-08] MEDS: Normal Saline - Diluent 50 ML VIAL IJ (09:52)
== END ==
PROVIDERS: PCP Nurse Practitioner Family; Visit Provider Internal Medicine
DX: C78.01 Secondary malignant neoplasm of right lung (principal)
CPT/HCPCS: 74177; 80053; 71260; 85025

== ENCOUNTER → 2023-03-14 02:28 | Outpatient (CLI) | payer MEDICARE, MEDICAID, SELFPAY ==
--- NOTE | 2023-03-14 | DI.MRI_ITS ---
Exam(s) MR BRAIN WO/W EXAM: MR BRAIN WO/W CLINICAL HISTORY: RESTAGING METS LUNG CANCER, HX SEIZURES. TECHNIQUE: Multiplanar multisequence MRI of the brain was performed. CONTRAST MATERIAL: IV Contrast: 10 ML of Dotarem contrast administered. COMPARISON: MR MR BRAIN WO/W from 12/15/2022 FINDINGS: VENTRICLES AND EXTRA AXIAL SPACES: Normal in size and morphology for the patient's age. HEMORRHAGE: None. CEREBRAL PARENCHYMA: No focus of restricted diffusion to suggest acute infarct. No space-occupying le lay identified. No underlying white matter changes. MIDLINE SHIFT: None. BRAINSTEM/CEREBELLUM: Normal. CALVARIUM: Normal. ENHANCEMENT: No suspicious enhancement identified. VISUALIZED PARANASAL SINUSES/MASTOIDS: Of fluid again noted right inferior mastoid. OTHER FINDINGS: None. IMPRESSION: No evidence of metastatic disease or other acute abnormality. DATA REPOSITORY:
[2023-03-14] MEDS: Normal Saline Flush 10 ML SYR IVP (09:01)
[2023-03-14] MEDS: Gadoterate meglumine 20 ML SYRINGE 10 ML IVP (09:03)
== END ==
PROVIDERS: PCP Nurse Practitioner Family; Visit Provider Internal Medicine
DX: C34.91 Malignant neoplasm of unspecified part of right bronchus or lung (principal)
CPT/HCPCS: 70553

== ENCOUNTER → 2023-05-30 03:49 | Outpatient (CLI) | payer MEDICARE, MEDICAID, SELFPAY ==
--- NOTE | 2023-05-30 | DI.US_ITS ---
APPROVED REPORT EXAM: Comprehensive 2D, Doppler, and color-flow Echocardiogram Patient Location: Out-Patient Distance Learning Administrator: Warren Cheng RDCS (AE) Indications: localized edema Conclusion 1. Normal chamber sizes 2. Normal LV systolic function without wall motion abnormality, EF 60-65% 3. Anatomically normal valves. No significant regurgitation or stenosis. 4. No intracardiac shunt. 5. No pericardial effusion. Wall motion Left Ventricle The left ventricle is normal size. The left ventricular systolic function is normal. The left ventric ular ejection fraction is within the normal range. There is normal left ventricular wall thickness. T here is normal LV segmental wall motion. There is no ventricular septal defect visualized. LVEF is 57 -60%. Right Ventricle The right ventricle is normal size. The right ventricular systolic function is normal. Atria The left atrium size is normal. The right atrium size is normal. The interatrial septum is intact wit h no evidence for an atrial septal defect. Aortic Valve The aortic valve is normal in structure. Aortic valve is trileaflet. There is no aortic valvular sten osis. Mitral Valve Mitral valve leaflets are mildly thickened. No evidence of mitral valve stenosis. Mild mitral regurgi tation. Tricuspid Valve The tricuspid valve is normal in structure. There is no tricuspid valve stenosis. Unable to assess PA pressure. Trace to mild tricuspid regurgitation. Pulmonic Valve The pulmonary valve is normal in structure. There is no pulmonic valvular stenosis. Mild pulmonic reg urgitation. Great Vessels The aortic root is normal in size. The ascending aorta is normal in size. Aortic arch is normal in ca liber. IVC is normal in size and collapses >50% with inspiration. Pericardium There is no pericardial effusion. 2D Dimensions IVSD d PLAX 0.72 cm F: 0.6-1.0 Ao Root d 2.80 cm F: 2.7 - 3.3 LVPW d PLAX 0.72 cm F: 0.6 - 1.0 Ao Asc Diam d 2.88 cm F: 2.3 - 3.1 LVID d PLAX 3.92 cm F: 3.8 - 5.2 LVDs 2.69 cm F: 2.2 - 3.5 LV EF Teichholz 59.8 % FS 31.32 % LV EDV (Teich) 66.5 mL LV ESV (Teich) 26.7 mL Stroke Vol Index (Teich) 25.18 M-Mode TAPSE 2.16 cm (M/F) >1.7 Auto EF LV EDV A4C 81.8 mL LV EDV A2C 100.4 mL LV EDV BP 90.1 mL LV ESV A4C 35.4 mL LV ESV A2C 39.9 mL LV ESV BP 38.6 mL LVEF(%) A4C 56.7 % LVEF(%) A2C 60.3 % LVEF(%) BP 57.2 % LV SV A4C 46.3 ml LV SV A2C 60.5 ml LV SV BP 51.5 ml LV CO A4C 3.5 L/min LV CO A2C 4.5 L/min LV CO BP 4.0 L/min HR A4C 76.59 BPM HR A2C 74.39 BPM LV EDV Index (BP) LA Volume LA Length A4C 3.3 cm LA Length A2C 4.3 cm LA Area A4C s 6.96 cm2 LA Area A2C s 9.04 cm2 LA Vol A4C A-L 12.37 mL LA Vol A2C A-L 16.02 mL LA Vol Biplane A-L 16.1 mL LA Vol/BSA A4C A-L LA Vol/BSA A2C A-L LA Vol/BSA BP A-L 10.2 mL/m2 LA Vol A4C MOD 11.3 mL LA Vol A2C MOD 14.0 mL LA Vol BP MOD 14.3 mL RA Volume RA Area A4C 8.1 cm2 RA ESV A4C (A-L) 19.3mL RA Vol/BSA A4C A-L RA Length A4C 2.9 cm RA ESV A4C (MOD) 16.1mL LV Diastology MV E' medial 0.095 (>0.07 m/s) MV E Vmax 0.57 (0.4-1.3 m/s) MV E/E' MED 5.96 (<14) MV A Vmax 0.80 (0.4-1.3 m/s) MV E' lateral 0.120 (>0.1 m/s) E/A Ratio 0.7 MV E/E' LAT 4.76 (<14) MV E' Average 0.108 m/s MV E/E'(average) 5.29 Aortic Valve AoV Vmax 1.09 m/s LVOT Vmax 1.03 m/s AoV Peak Grad 4.8 mmHg LVOT Peak Grad 4.3 mmHg AoV Area (Vmax) 2.85 cm2 LVOT VTI 0.208 m AoV VTI 0.212 m LVOT Mean Grad 2.2 mmHg AoV Mean Noel. 0.71 m/s LVOT SV 62.80 mL AoV Mean Grad 2.3 mmHg LVOT Diam s 1.95 cm AoV Area (VTI) 2.96 cm2 Velocity Ratio 0.94 Mitral Valve MV DT 306 (160-240 msec) Pulmonary Valve PV Vmax 0.79 (0.5-1.5 m/s) RVOT Vmax 0.47 m/s PV Peak Grad 2.5 mmHg RVOT Peak Gr. 0.9 mmHg PV Mean Noel 0.60 m/s RVOT VTI 0.093 m PV Mean Grad 1.6 mmHg RVOT Mean Gr. 0.5 mmHg
== END ==
PROVIDERS: PCP Nurse Practitioner Family; Visit Provider Nurse Practitioner Family
DX: R60.0 Localized edema (principal)
CPT/HCPCS: 93306

== ENCOUNTER → 2023-06-17 01:08 | Outpatient (CLI) | payer MEDICARE, MEDICAID, SELFPAY ==
[2023-06-17] MEDS: Barium Sulfate 2% W/V-Creamy Vanilla Smoothie 450 ML BTL 900 ML PO (11:01)
[2023-06-17 11:23] LABS: Abs Immature Grans 0.01 10^3/uL (0.0-0.06); Absolute Basophil Count 0.12 10^3/uL (0.0-0.2); Absolute Eosinophil Count 0.45 10^3/uL (0.0-0.7); Absolute Lymphocyte Count 3.93 10^3/uL (1.2-3.4); Absolute Monocyte Count 1.04 10^3/uL (0.1-0.8); Absolute Neutrophil Count 6.26 10^3/uL (1.2-6.7); Eosinophils % 3.8; HCT 48.9 % (36.0-46.0); HGB 16.7 g/dL (11.2-15.7); Immature Grans % 0.1; Lymphocytes % 33.3; MCH 33.1 pg (27.0-33.0); MCHC 34.2 % (32.0-36.0); MCV 97 fL (80-95); MPV 8.7 fL (8.0-11.0); Monocytes % 8.8; Platelet Count 420 10^3/uL (130-400); RBC 5.04 10^6/uL (3.93-5.22); RDW 13.5 % (11.7-14.6); RDW-SD 49.1 fL; WBC 11.81 10^3/uL (4.4-10.8)
[2023-06-17 11:42] LABS: ALT 29 U/L (14-59); AST 26 U/L (15-37); Albumin 4.6 g/dL (3.4-5.0); Alkaline Phosphatase 115 U/L (46-116); Anion Gap 5.9 mmol/L (3-11); BUN 15 mg/dL (7-18); Bilirubin, Total 0.5 mg/dL (0.2-1.0); CO2 32.1 mmol/L (21.0-32.0); CREATININE 1.1 mg/dL (0.55-1.02); Calcium 10.3 mg/dL (8.5-10.1); Chloride 99 mmol/L (98-107); Estimated GFR 56.46 (mL/min/1.73m2); Glucose 102 mg/dL (74-106); Potassium 4.2 mmol/L (3.5-5.1); Sodium 137 mmol/L (136-145); Total Protein 10.1 g/dL (6.4-8.2)
[2023-06-17] MEDS: Normal Saline - Diluent 50 ML VIAL IJ (13:22)
[2023-06-17] MEDS: Omnipaque 350 MG/ML 100 ML BTL IJ (13:22)
--- NOTE | 2023-06-17 13:23 | DI.CT_ITS ---
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 Pulmonary parenchyma: Centrilobular emphysematous changes are present in the lungs. Calcified granul juwan are present. Stable postsurgical changes in the right lung. Stable pulmonary nodules. No new p ulmonary nodules are present. No focal consolidating infiltrates are seen. Visualized thyroid gland: Unremarkable. Mediastinum and Sherri: Stable lymph nodes in the mediastinum. The esophagus is unremarkable. Pleura: No effusion or pneumothorax. Heart: The heart is not dilated. No coronary artery calcifications are seen. No pericardial effusion. Pulmonary arteries: No pulmonary emboli are identified. Aorta: Thoracic aorta non-dilated. No evidence of dissection. Lymph nodes: Within normal limits. Soft tissues: Unremarkable. Bones:Within normal limits for the patient's age. No aggressive osseous lesions. ABDOMEN: Liver: Normal density. No measurable mass. Portal, Superior Mesenteric, and Splenic Veins: Unremarkable. Gallbladder and Biliary Tract: No evidence of nephrolithiasis. There is stable mild intra and extrah epatic biliary ductal dilatation. Pancreas: Normal density, no abnormal calcifications or inflammatory process. Spleen: The spleen is absent. Adrenals: There is stable nodularity of the adrenal glands bilaterally, left greater than right. Kidneys: Normal size, contour and axis. There does appear to be a tiny 2 mm nonobstructing stone in t he lower pole of the right kidney. Stable tiny renal cysts. No follow-up is recommended. Abdominal Aorta: Abdominal portion non-dilated. Atherosclerosis. Bowel: There is a large amount of stool in the colon consistent with constipation. There is no evide nce of bowel obstruction or bowel wall thickening. No evidence of appendicitis. Peritoneal Cavity: No ascites, collection or mesenteric inflammatory response. No free air. Lymph Nodes: Within normal limits. Bones: Within normal limits for the patient's age. The lucencies in the L1 and L2 vertebral bodies a ppears stable. No aggressive osseous lesions are identified. Soft Tissues: Unremarkable. PELVIS: Bladder: The urinary bladder is incompletely distended limiting evaluation. Reproductive Organs: Status post hysterectomy. Lymph Nodes: Within normal limits. Bones: Within normal limits. IMPRESSION: 1. Stable appearance of the adrenal glands and L1 and L2 vertebral bodies. 2. No findings suggest new abdominal or pelvic metastatic disease. 3. Stable pulmonary nodules. No evidence of recurrence. 4. Postsurgical changes in the right hemithorax. 5. Centrilobular emphysema. RADIATION DOSE DELIVERED: 1,005.37mGy.cm Total DLP DATA REPOSITORY: All CT scans at this facility are submitted to the National Radiology Data Registry (NRDR) Dose Index Registry (DIR) with the [employer] (ACR). RADIATION OPTIMIZATION: All CT scans at this facility use at least one of these dose optimization te chniques: automated exposure control; mA and/or kV adjustment per patient size (includes targeted exa ms where dose is matched to clinical indication); or iterative reconstruction.
== END ==
PROVIDERS: PCP Nurse Practitioner Family; Visit Provider Internal Medicine
DX: C34.91 Malignant neoplasm of unspecified part of right bronchus or lung (principal); Z98.890 Other specified postprocedural states
CPT/HCPCS: 74177; 80053; 71260; 85025; J3490

== ENCOUNTER → 2023-07-06 00:11 | Outpatient (CLI) | payer MEDICARE, MEDICAID, SELFPAY ==
--- NOTE | 2023-07-06 | DI.NM_ITS ---
Exam(s) NM BONE SCAN WHOLE BODY GRP EXAM: NM BONE SCAN WHOLE BODY GRP CLINICAL HISTORY: RT LUNG CA,C34.91,MUTATIONEGFR GENE,C34.90,ASSESS TREATMENT RESPONSE,RESTAG. TECHNIQUE: Injected Dose: 25 mCi Tc-99m MDP Delayed Images: 2-3 hours. COMPARISON: CT CT CHEST/ABD/PEL W from 06/17/2023 FINDINGS: Scoliosis noted convex left in the lower thoracic-lumbar spine. There is focal radiopharmaceutical uptake seen in the left side of the lower lumbosacral spine, this consistent with advanced facet arthropathy seen at this level on CT scan performed 06/17/2023. There is no abnormal uptake in the skeleton to suggest osseous metastatic disease There is a focus of increased uptake seen in the anterior aspect of the right 4th and 5th rib which i s at the costochondral junction. IMPRESSION: Benign-appearing findings as above. No evidence of osseous metastatic disease. DATA REPOSITORY:
== END ==
PROVIDERS: PCP Nurse Practitioner Family; Visit Provider Internal Medicine
DX: C34.91 Malignant neoplasm of unspecified part of right bronchus or lung (principal)
CPT/HCPCS: 78306

== ENCOUNTER → 2023-09-26 13:22 | Outpatient (BNVA) | payer MEDICARE, MEDICAID, SELFPAY | PROVIDERS: PCP Nurse Practitioner Family; Referring Provider Nurse Practitioner Family; Visit Provider Nurse Practitioner Gerontology | DX: R35.0 Frequency of micturition (principal); Z87.898 Personal history of other specified conditions | CPT/HCPCS: 51798; 99213 ==

== ENCOUNTER 2024-02-14 01:47 | Outpatient (CLI) | payer MEDICARE, MEDICAID, SELFPAY ==
--- NOTE | 2024-02-14 | DI.CT_ITS ---
Exam(s) CT CHEST/ABD/PEL W EXAM: CT CHEST/ABD/PEL W CLINICAL HISTORY: RT LUNG CANCER C34.91 RESATGING. TECHNIQUE: Imaging Protocol: Axial computed tomography images with coronal and sagittal reformatted images were created and reviewed CONTRAST MATERIAL: Intravenous: Omnipaque 350 Contrast volume:100 ml Oral: yes / COMPARISON: CT CT CHEST/ABD/PEL W from 06/17/2023 FINDINGS: CHEST: Tracheobronchial tree: Patent. Pulmonary parenchyma: No consolidation or dominant measurable mass. Suture material at lateral right upper lobe. Stable right upper lobe volume loss. Stable 5 millimeter nodule at right lateral costo phrenic angle. Stable 4 millimeter nodule left lower lobe. Other tiny nodules at the posterior righ t lower lobe appear unchanged. Stable 4 millimeter nodule periphery of the right middle lobe. Emphy sematous changes at the upper lobes. Pleura: No effusion or pneumothorax. Mediastinum: Within normal limits. Aorta: Thoracic portion non-dilated. Pulmonary arteries: No visible emboli. Heart: No pericardial effusion. Bones: Scoliosis and degenerative changes. No lytic or blastic lesions.No compression fractures. Soft tissues: Unremarkable. ABDOMEN and PELVIS: Liver: Normal density. No measurable mass. Gallbladder and biliary tract: No evidence of stones or wall thickening. No biliary dilatation. Pancreas: Normal density, no abnormal calcifications or inflammatory process. Spleen: Normal. Kidneys: Normal size, contour and axis. No radiodense stones. No obstructive uropathy. No suspicious masses seen. Adrenal glands: Stable bilateral prominence of the adrenal glands. Aorta: Abdominal portion non-dilated. Lymph nodes: Within normal limits. Soft tissues: Unremarkable. Bladder: Nearly empty. Bowel: No obstruction or bowel wall thickening. Normal to increased quantity of stool. Peritoneal cavity: No ascites. No focal collection. No mesenteric inflammatory response. No free ai r. Bones: Scoliosis and degenerative changes. Stable small lucencies in the L1 and L2 vertebral bodies. Reproductive organs: Status post hysterectomy. IMPRESSION: Stable postsurgical changes of the right upper lobe. Stable small bilateral pulmonary nodules. No new findings. No evidence of metastatic disease in the abdomen or pelvis. RADIATION DOSE DELIVERED: 250.87mGy.cm Total DLP DATA REPOSITORY: All CT scans at this facility are submitted to the National Radiology Data Registry (NRDR) Dose Index Registry (DIR) with the [employer] (ACR). RADIATION OPTIMIZATION: All CT scans at this facility use at least one of these dose optimization te chniques: automated exposure control; mA and/or kV adjustment per patient size (includes targeted exa ms where dose is matched to clinical indication); or iterative reconstruction.
--- NOTE | 2024-02-14 | DI.NM_ITS ---
Exam(s) WI BONE SCAN WHOLE BODY GRP EXAM: WI BONE SCAN WHOLE BODY GRP CLINICAL HISTORY: RT LUNG CANCER C34.91 RESTAGING. TECHNIQUE: Injected Dose: 26.2 mCi Tc-99m MDP Delayed Images: 2-3 hours. COMPARISON: [facility] BONE SCAN WHOLE BODY GRP from 07/06/2023 FINDINGS: Symmetric axial uptake. Bilateral renal excretion is identified. No focal area of intense suspicious uptake is seen. Scoliosis again noted. Increased activity in spine consistent with degenerative ch anges unchanged from prior. IMPRESSION: 1. No evidence of metastatic disease. DATA REPOSITORY:
[2024-02-14] MEDS: Barium Sulfate 2% W/V-Berry Smoothie 450 ML BTL PO ×2 (08:29→08:30)
[2024-02-14 09:03] LABS: Abs Immature Grans 0.04 10^3/uL (0.0-0.06); Absolute Eosinophil Count 0.53 10^3/uL (0.0-0.7); Absolute Lymphocyte Count 3.29 10^3/uL (1.2-3.4); Absolute Monocyte Count 1.02 10^3/uL (0.1-0.8); Basophils % 0.8 %; Eosinophils % 4.1 %; HCT 45.9 % (36.0-46.0); HGB 15.6 g/dL (11.2-15.7); Immature Grans % 0.3 %; Lymphocytes % 25.3 %; MCV 100 fL (80-95); MPV 8.8 fL (8.0-11.0); Monocytes % 7.8 %; Neutrophils % 61.7 %; Platelet Count 345 10^3/uL (130-400); RBC 4.59 10^6/uL (3.93-5.22); RDW 13.7 % (11.7-14.6); RDW-SD 50.5 fL; WBC 13.02 10^3/uL (4.4-10.8)
[2024-02-14 09:04] LABS: Absolute Neutrophil Count 8.03 10^3/uL (1.2-6.7)
[2024-02-14 09:18] LABS: ALT 18 U/L (14-59); AST 21 U/L (15-37); Albumin 3.8 g/dL (3.4-5.0); Alkaline Phosphatase 106 U/L (46-116); Anion Gap 5.9 mmol/L (3-11); BUN 16 mg/dL (7-18); Bilirubin, Total 0.47 mg/dL (0.2-1.0); CO2 29.1 mmol/L (21.0-32.0); CREATININE 1.1 mg/dL (0.55-1.02); Calcium 9.4 mg/dL (8.5-10.1); Chloride 101 mmol/L (98-107); Estimated GFR 56.11 (mL/min/1.73m2); Glucose 91 mg/dL (74-106); Potassium 3.9 mmol/L (3.5-5.1); Sodium 136 mmol/L (136-145); Total Protein 8.2 g/dL (6.4-8.2)
[2024-02-14] MEDS: Normal Saline - Diluent 50 ML VIAL IJ (10:47)
[2024-02-14] MEDS: Omnipaque 350 MG/ML 100 ML BTL IJ (10:48)
== END 2024-02-14 02:07 ==
PROVIDERS: PCP Nurse Practitioner Family; Visit Provider Internal Medicine
DX: C34.91 Malignant neoplasm of unspecified part of right bronchus or lung (principal)
CPT/HCPCS: 74177; 78306; 80053; 71260; 85025; J3490

== ENCOUNTER → 2024-06-25 08:56 | Outpatient (BNVA) | payer MEDICARE, MEDICAID, SELFPAY | PROVIDERS: PCP Nurse Practitioner Family; Visit Provider Nurse Practitioner Gerontology | DX: R35.0 Frequency of micturition (principal); Z87.898 Personal history of other specified conditions | CPT/HCPCS: 51798; 99213 ==

== ENCOUNTER 2024-07-25 04:26 | Outpatient (CLI) | payer MEDICARE, MEDICAID, SELFPAY ==
[2024-07-25 13:00] LABS: TSH (W/Ref FT4) 1.75 uIU/mL (0.36-3.74)
[2024-07-26 11:15] LABS: Measles IgG Antibody Positive (See Note)
[2024-07-28 12:26] LABS: Lamotrigine 4.8 mcg/mL (3.0-15.0)
== END 2024-07-25 04:27 | disposition home or self-care (01) ==
LOC: LBO 04:26
PROVIDERS: PCP Nurse Practitioner Family; Visit Provider Nurse Practitioner Family
DX: L65.9 Nonscarring hair loss, unspecified (principal); D84.9 Immunodeficiency, unspecified; Z79.899 Other long term (current) drug therapy
CPT/HCPCS: 36415; 80175; 84443; 86765

== ENCOUNTER 2025-04-02 03:24 | Outpatient (CLI) | payer MEDICARE, MEDICAID, SELFPAY ==
[2025-04-02 09:24] LABS: Folate > 24.0 ng/mL (>5.38)
[2025-04-02 15:44] LABS: TSH (W/Ref FT4) 1.77 uIU/mL (0.55-4.78)
[2025-04-02 16:23] LABS: ALT 13 U/L (10-49); AST 25 U/L (<34); Albumin 4.6 g/dL (3.4-5.0); Alkaline Phosphatase 94 U/L (46-116); Anion Gap 5.4 mmol/L (3-11); BUN 16 mg/dL (9-23); Bilirubin, Direct 0.1 mg/dL (<=0.3); Bilirubin, Total 0.40 mg/dL (0.2-1.2); CO2 26.6 mmol/L (20.0-31.0); Calcium 9.6 mg/dL (8.3-10.6); Chloride 107 mmol/L (98-107); Cholesterol 219 mg/dL (<200); Glucose 90 mg/dL (74-106); HDL Cholesterol 78 mg/dL (>40); Potassium 4.2 mmol/L (3.5-5.1); Sodium 139 mmol/L (136-145); Total Protein 8.2 g/dL (5.7-8.2); Vitamin B12 671 pg/mL (211-911)
== END 2025-04-02 03:25 | disposition home or self-care (01) ==
LOC: LBO 03:24
PROVIDERS: PCP Nurse Practitioner Family; Visit Provider Nurse Practitioner Family
DX: R41.3 Other amnesia (principal); E78.00 Pure hypercholesterolemia, unspecified
CPT/HCPCS: 36415; 80048; 80061; 80076; 82607; 82746; 84443

== ENCOUNTER 2025-04-23 09:39 | Emergency (ER) | payer MEDICARE, MEDICAID, SELFPAY ==
[2025-04-23 09:45] VITALS: BP 153/93; PULSE 80; RESP 16; TEMP 36.6; O2SAT 98
--- NOTE | 2025-04-23 10:00 | DI.RAD_ITS ---
Exam(s) XR CHEST 2V PA LATERAL EXAM: XR CHEST 2V PA LATERAL CLINICAL HISTORY: fall, shoulder trauma TECHNIQUE: 2D digital imaging was performed. Two views. COMPARISON: CT CT CHEST/ABD/PEL W from 02/14/2024 CR XR SHOULDER RT COMPLETE 2+V from 04/23/2025 FINDINGS: Lateral view is limited by the patient's inability to raise the arms. HEART: Normal size. Aorta: Not dilated. PULMONARY VASCULATURE: Normal. MEDIASTINUM: Unremarkable. LUNGS: Surgical clips near the right hilum. Adjacent scarring. Clear. PLEURAL SPACE: No pleural effusion or pneumothorax. BONE:Scoliosis and degenerative changes. No rib fractures are identified. The proximal humeral fracture is not well demonstrated. SOFT TISSUES: Unremarkable. IMPRESSION: No acute abnormality. DATA REPOSITORY: RADIATION DOSE DELIVERED:
--- NOTE | 2025-04-23 10:00 | DI.RAD_ITS ---
Exam(s) XR ELBOW RT COMPLETE EXAM: XR ELBOW RT COMPLETE CLINICAL HISTORY: fall, medial epicondyle pain. TECHNIQUE: 2D digital imaging was performed. Three views. COMPARISON: No exams were available for comparison FINDINGS: BONES: No acute fracture is present. No bony destructive lesion is seen. JOINTS: The elbow is normally aligned. No joint effusion is seen. SOFT TISSUE: Normal. IMPRESSION: Unremarkable radiographs of the right elbow. DATA REPOSITORY: RADIATION DOSE DELIVERED:
--- NOTE | 2025-04-23 10:00 | DI.RAD_ITS ---
Exam(s) XR SHOULDER RT COMPLETE 2+V XR HUMERUS RT EXAM: XR SHOULDER RT COMPLETE 2+V CLINICAL HISTORY: fall onto shoulder, deformity. TECHNIQUE: 2D digital imaging was performed. Four views of the shoulder. Two views of the humerus COMPARISON: CR XR HUMERUS RT from 04/23/2025 FINDINGS: BONES: There is a comminuted fracture of the humeral head with transverse component through the surgical neck and greater tuberosity fragment. No additional fractures are seen more distally in the humerus. No bony destructive lesion is seen. JOINTS: No dislocation present. Mild degenerative changes of the glenohumeral joint and AC joint. SOFT TISSUE: Normal. IMPRESSION: Humeral head fracture. DATA REPOSITORY: RADIATION DOSE DELIVERED:
--- NOTE | 2025-04-23 10:06 | W.ED.GENAD ---
Discharge Plan Disposition Patient Disposition: Home Condition: Stable Discharge Details Clinical Impression: Closed fracture of shoulder Primary Care Provider: Carolyne Werner ED Provider: Tori Paul Home Meds and New Rx's Prescriptions: New oxycodone 10 mg tablet 10 mg PO BID PRNQty: 10 0RF Continued albuterol sulfate [Ventolin HFA] 90 mcg/actuation HFA aerosol inhaler 2 puff inhalation Q6H PRN (Reason: shortness of breath or wheezing) Qty: 8.5 0RF Rx Instructions: use with spacer 15 min before physical activity (DME) Aerochamber MV Spacer See Rx Instructions .Route Qty: 10 0RF Rx Instructions: As directed echinacea 400 mg capsule 1,600 mg PO BID Rx Instructions: administer with meals mirabegron [Myrbetriq] 25 mg tablet extended release 24 hr 25 mg PO DAILY Qty: 90 3RF diphenhydramine HCl [Sleep Aid (diphenhydramine)] 50 mg capsule 50 mg PO QHS PRN ondansetron HCl 4 mg tablet 4 mg PO Q8H PRN osimertinib 40 mg tablet 40 mg PO DAILY vitamin B complex Tablet 1 tab PO DAILY acetaminophen 500 mg capsule 500 mg PO BID PRN lamotrigine [Lamictal] 150 mg tablet 300 mg PO DAILY Qty: 60 3RF trazodone 100 mg tablet 200 mg PO QHS Qty: 60 3RF docusate sodium [Colace] 100 mg capsule 100 mg PO BID MDD 200mg PRN (Reason: constipation) Qty: 60 3RF duloxetine 60 mg capsule,delayed release(DR/EC) 60 mg PO DAILY Qty: 30 3RF aripiprazole 10 mg tablet See Rx Instructions .ROUTE .COMPLEX Qty: 28 3RF Dose Instruction: TAKE 1 TABLET BY MOUTH EVERY MORNING Rx Instructions: TAKE 1 TABLET BY MOUTH EVERY MORNING rosuvastatin 5 mg tablet 5 mg PO DAILY Discharge Instructions Instructions: Upper Arm Fracture ED Additional Instructions: Take Tylenol as needed for pain You may oxycodone, 2-5-5 mg 8 hours as needed for discomfort, this will make you constipated can be addictive, use caution while taking this medication and do not operate your vehicle for 8 hours after You may apply Voltaren gel or Motrin gel topically to the affected area Keep your sling in place Recommend taking calcium and vitamin D supplement and DEXA scan in the outpatient setting If orthopedics does not call you by tomorrow, please call the office to schedule follow-up If you develop worsening pain or if any new concerns arise please return for reassessment Recommendation to get some traction devices for your boots at [facility] job lot for the winter Stand Alone Forms: Portal Information Referrals: Carolyne Werner APRN [Primary Care Provider, Family Practice] Ludwin Shafer MD [ [facility] STAFF PHYSICIAN, Orthopaedic Surgical] HPI General Date/Time Provider Initiated Documentation: 04/23/25 09:48. 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 Denies any additional injuries. Denies any head injury or loss of consciousness. States she is unable to move the shoulder secondary to pain. Related Data Home Medications ?Medication ?Instructions ?Recorded ?Confirmed acetaminophen 500 mg capsule 500 mg PO BID PRN 11/16/23 04/23/25 osimertinib 40 mg tablet 40 mg PO DAILY 11/16/23 04/23/25 vitamin B complex 1 tab PO DAILY 11/16/23 04/23/25 echinacea 400 mg capsule 1,600 mg PO BID 12/28/23 04/17/25 mirabegron 25 mg tablet,extended 25 mg PO DAILY #90 tabs 06/25/24 04/23/25 release 24 hr (Myrbetriq) albuterol sulfate 90 mcg/actuation 2 puff inhalation Q6H PRN 07/11/24 04/23/25 aerosol inhaler (Ventolin HFA) shortness of breath or wheezing #8.5 grams inhalational spacing device #10 ea 07/11/24 04/23/25 (Aerochamber MV spacer) lamotrigine 150 mg tablet 300 mg (2 x 150 mg) PO DAILY #60 01/07/25 04/23/25 (Lamictal) tabs docusate sodium 100 mg capsule 100 mg PO BID PRN constipation #60 02/05/25 04/23/25 (Colace) caps duloxetine 60 mg capsule,delayed 60 mg PO DAILY #30 caps 02/05/25 04/23/25 release trazodone 100 mg tablet 200 mg (2 x 100 mg) PO QHS #60 tabs 02/05/25 04/23/25 aripiprazole 10 mg tablet See Rx Instructions .Route 03/05/25 04/23/25 .COMPLEX #28 tabs diphenhydramine HCl 50 mg capsule 50 mg PO QHS PRN 03/15/25 04/23/25 (Sleep Aid (diphenhydramine)) ondansetron HCl 4 mg tablet 4 mg PO Q8H PRN 03/15/25 04/23/25 rosuvastatin 5 mg tablet 5 mg PO DAILY 04/18/25 04/23/25 oxycodone 10 mg tablet 10 mg PO BID PRN #10 tabs 04/23/25 Previous Rx's ?Medication ?Instructions ?Recorded mirabegron 25 mg tablet,extended 25 mg PO DAILY #90 tabs 06/25/24 release 24 hr (Myrbetriq) albuterol sulfate 90 mcg/actuation 2 puff inhalation Q6H PRN 07/11/24 aerosol inhaler (Ventolin HFA) shortness of breath or wheezing #8.5 grams inhalational spacing device #10 ea 07/11/24 (Aerochamber MV spacer) lamotrigine 150 mg tablet 300 mg (2 x 150 mg) PO DAILY #60 01/07/25 (Lamictal) tabs docusate sodium 100 mg capsule 100 mg PO BID PRN constipation #60 02/05/25 (Colace) caps duloxetine 60 mg capsule,delayed 60 mg PO DAILY #30 caps 02/05/25 release trazodone 100 mg tablet 200 mg (2 x 100 mg) PO QHS #60 tabs 02/05/25 aripiprazole 10 mg tablet See Rx Instructions .Route 03/05/25 .COMPLEX #28 tabs oxycodone 10 mg tablet 10 mg PO BID PRN #10 tabs 04/23/25 Allergies Allergy/AdvReac Type Severity Reaction Status Date / Time clonazepam Allergy Intermediate Unknown Verified 04/23/25 09:48 Benzodiazepines Allergy Unknown Unknown Verified 04/23/25 09:48 fentanyl (From Duragesic) AdvReac Intermediate Not Verified 04/23/25 09:48 effective gabapentin (From Neurontin) AdvReac Intermediate Not Verified 04/23/25 09:48 effective mirtazapine AdvReac Intermediate Not Verified 04/23/25 09:48 effective nicotine (From Nicoderm CQ) AdvReac Intermediate Doesnt Verified 04/23/25 09:48 stick varenicline (From Chantix) AdvReac Intermediate Bad dreams Verified 04/23/25 09:48 steroids AdvReac Mild Interactions Uncoded 04/23/25 09:48 with mood meds General Stated Complaint: Orthopedic OUMAR: 4 Exam Narrative Exam Narrative: Patient with tenderness and swelling to right shoulder, neurovascularly intact no tenderness to elbow no chest wall tenderness, GCS 15 no visible sign of head injury, no cervical spine tenderness neurovascularly intact, has mild tenderness to the medial epicondyle on the right side lungs clear to auscultation no respiratory distress cardiac rate rhythm regular Course Vital Signs Vital signs: Vital Signs Temperature 36.6 C 04/23/25 09:45 Pulse 80 04/23/25 09:45 Respiratory Rate 16 04/23/25 09:45 Blood Pressure 153/93 H 04/23/25 09:45 Pulse Oximetry 98 04/23/25 09:45 Temperature 36.6 C 04/23/25 09:45 Pulse 80 04/23/25 09:45 Respiratory Rate 16 04/23/25 09:45 Blood Pressure 153/93 H 04/23/25 09:45 Pulse Oximetry 98 04/23/25 09:45 Pain Level 10 04/23/25 09:45 Medical Decision Making Results: Right shoulder with comminuted humeral head fracture per radiology interpretation of my review, chest, elbow, and mid/distal humerus without acute abnormality Assessment and plan: Patient with obvious humerus fracture without evidence of dislocation, placed in a sling. Placed on Ortho list for follow-up within the week. Remains neurovascularly intact, oxycodone 10 mg tablets #10 was supplied for pain control and risk of addiction/driving restrictions reviewed. Looks like she has decreased bone density and calcium and vitamin D were encouraged, we also talked about wearing traction devices when outside. Return precautions reviewed in detail and patient expressed understanding. Of note, she is right-hand dominant but thinks she has enough supports in place around her home to be successful in discharge. Referred to [facility] for further management of her fracture. Quality:SDOH Health Related Social Needs: Health related social needs inadequate housing food insecurity transpo insecurity house/econ circumstance lonely/isolated Health related social needs details Declines assistance PFSH All Active Problems (Updated 04/23/25 @ 12:01 by MAKAYLA Gallegos) Closed fracture of shoulder (Acute) Metastatic adenocarcinoma to lung (Acute) Elevated cholesterol (Chronic) Elevated glucose (Acute) Memory change (Acute) Environmental allergies (Acute) Cognitive change (Acute) ACP (advance care planning) (Acute) Immunocompromised (Acute) Medication management (Acute) Extreme poverty (Acute) Abnormal imaging of central nervous system (Acute) Pain in left wrist (Acute) 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 (Acute) Renal function test abnormal (Acute) Dyspnea (Acute) Paresthesia (Acute) Atrophic vaginitis (Acute) Nicotine dependence (Acute) Moderate depressed bipolar disorder (Acute) Major depression (Chronic) Vitamin B deficiency (Acute) Primary malignant neoplasm of bronchus (Acute) Palliative care patient (Acute) Pain disorder associated with psychological and physical factors (Acute) Chronic pain after cancer treatment (Acute) Bipolar 1 disorder (Chronic) Globus sensation (Acute) Adenocarcinoma of right lung (Chronic) Posttraumatic stress disorder (Acute) Anxiety and depression (Acute) Chronic pain syndrome (Chronic) Stage 4 malignant neoplasm of lung (Acute) Basal cell carcinoma (BCC) of skin of face (Acute) New persistent daily headache (Acute) Dysuria (Acute) Occipital headache (Acute) H/O urinary frequency (Acute) Medical History Imaging abnormalities History of tobacco abuse Localized swelling of both lower legs Depression Anxiety History of transfusion Skin cancer Severe protein-calorie malnutrition Lung cancer 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 Vitamin B12 deficiency Arthralgia of left wrist Urinary frequency Cervical radiculopathy Scoliosis deformity of spine Low back pain High risk medication use Vaginal atrophy Creatinine elevation Smoker Vitamin B12 deficiency anemia, unspecified Adenocarcinoma, metastatic History of depression Non-small cell lung cancer Anxiety disorder Chronic pain Low blood pressure Insomnia Fibromyalgia Skin lesion of face Night sweats Hot flashes Headache Insect bite Nausea Leg edema Constipation Medication monitoring encounter Abnormal findings on diagnostic imaging of abdomen Surgical History History of appendectomy H/O elbow surgery History of tonsillectomy Status post lobectomy of lung H/O splenectomy H/O total hysterectomy Social History Smoking/Tobacco Use Status: Current every day Tobacco Type: cigarettes Smoking packs per day: 1 Smoking cigarettes per day: 20.0 Years smoked: 40 Smoking pack-years: 40.00 Tobacco: How many years used: 40 Quit status: not considering quitting Smoking risk assessment performed?: Yes Alcohol Intake: never Drug use: Daily Substance use type: marijuana Adopted: No Caregiver/Support person: No Foster care: No Housing: house Number of Children: 1 Communication Needs: None Education Level: high school Details: GED current occupation: Disabled Pets and animals: Yes (3) Pets and animals: cat(s) Sexually active: No Do you think of yourself as: straight/heterosexual Current gender identity: female What is your relationship status?: How often do you talk on the phone with friends or family?: twice per week How often do you get together with friends or relatives?: decline to answer Do you belong to any clubs or organized social groups?: no Panel score (0-1 are the most socially isolated patients): 0 What type of physical activity do you participate in: none Kamini/Druze: None Special kamini needs: No Seatbelt use: always Drive intox 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
[2025-04-23] MEDS: MORPHine 10 MG/ML VIAL 2 MG IVP (10:28)
[2025-04-23] MEDS: MORPHine 10 MG/ML VIAL 4 MG IVP (12:27)
[2025-04-23 12:40] VITALS: BP 134/69; PULSE 74; TEMP 36.8; O2SAT 94
== END 2025-04-23 13:15 | disposition home or self-care (01) ==
PROVIDERS: Emergency Provider Physician Assistant; PCP Nurse Practitioner Family
DX: S42.251A Displaced fracture of greater tuberosity of right humerus, initial encounter for closed fracture (principal); W10.8XXA Fall (on) (from) other stairs and steps, initial encounter; Z59.10 Inadequate housing, unspecified; Z59.41 Food insecurity; Z59.82 Transportation insecurity; Z59.89 Other problems related to housing and economic circumstances; Z60.8 Other problems related to social environment
CPT/HCPCS: 99284 ×2; 96374; 96376; 36415; 71046; 73030; 73060; 73080; J2270

== ENCOUNTER 2025-04-30 11:30 | Outpatient (CLI) | payer MEDICARE, MEDICAID, SELFPAY ==
--- NOTE | 2025-04-30 09:30 | DI.RAD_ITS ---
Exam(s) XR SHOULDER RT COMPLETE 2+V EXAM: XR SHOULDER RT COMPLETE 2+V CLINICAL HISTORY: F/U FRACTURE. TECHNIQUE: 2D digital imaging was performed of the right shoulder. Three images were obtained. Grashey and Y views were obtained. COMPARISON: CR XR SHOULDER RT COMPLETE 2+V from 04/23/2025 FINDINGS: BONES: Given the differences in positioning, there does not appear to be any significant change in alignment of the fracture involving the proximal right humerus. There is no new fracture seen. No bony destructive lesion is seen. JOINTS: No dislocation present. SOFT TISSUE: Normal. IMPRESSION: Stable proximal right humeral fracture. DATA REPOSITORY: RADIATION DOSE DELIVERED:
== END 2025-04-30 11:31 | disposition home or self-care (01) ==
LOC: DIORS 11:30
PROVIDERS: PCP Nurse Practitioner Family; Referring Provider Nurse Practitioner Family; Visit Provider Student in an Organized Health Care Education/Training Program
DX: S42.201A Unspecified fracture of upper end of right humerus, initial encounter for closed fracture (principal); W01.0XXA Fall on same level from slipping, tripping and stumbling without subsequent striking against object, initial encounter; C34.92 Malignant neoplasm of unspecified part of left bronchus or lung; F17.210 Nicotine dependence, cigarettes, uncomplicated
CPT/HCPCS: 99214; 73030